=== PATIENT | male | born 1940 | race Caucasian/White ===

== ENCOUNTER 2017-02-27 22:46 | Inpatient (IN) | payer MEDICARE, OTHER ==
[2017-02-28] MEDS ORDERED: Ondansetron ODT 4 MG TAB SL PRN (01:42)
[2017-02-28] MEDS ORDERED: Acetaminophen 325 MG TAB PO PRN (01:42)
[2017-02-28] MEDS ORDERED: Ondansetron HCl/PF 4 MG/2 ML Vial IVP PRN (01:42)
[2017-02-28 01:52] VITALS: BMI 32.5
[2017-02-28] MEDS ORDERED: Gabapentin 300 MG CAP PO SCH ×2 (04:15→15:00)
[2017-02-28] MEDS: traMADol HCl 50 MG TAB PO PRN ×3 (04:15→20:57)
[2017-02-28] MEDS ORDERED: traMADol HCl 50 MG TAB PO SCH (08:45)
[2017-02-28 08:55] LABS: #Eosinphils 0.1 thou/uL (0.0-0.7); #Lymphocytes 0.7 thou/uL (1.20-3.40); #Monocytes 0.8 thou/uL (0.11-0.59); #Neutrophils 6.6 thou/uL (1.40-6.50); %Basophils 0.5 % (0.0-1.0); %Eosinophils 1.1 % (0.0-10.0); %Lymphocytes 8.1 % (21.0-51.0); Hematocrit 37.1 % (42.0-52.0); Mean Platelet Volume 8.1 fL (7.4-10.4); Red Blood Cell (RBC) Count 3.85 mill/uL (4.70-6.10); White Blood Cell (WBC) Count 8.3 thou/uL (4.8-10.8)
[2017-02-28] MEDS ORDERED: FLU VACC TS2017-18 (>65YR) 0.5 ML SYRINGE IM ONE (09:00)
[2017-02-28 09:19] LABS: Anion Gap 11 mmol/L (10-20); BUN (Urea Nitrogen) 12 mg/dL (8.4-25.7); Calc. Creatinine Clearance 110 mL/min (70-130); Calcium 8.7 mg/dL (7.8-10.44); Carbon Dioxide 25 mmol/L (23-31); Chloride 107 mmol/L (98-107); Estimated GFR-MDRD Greater than 90
[2017-02-28] MEDS: Aspirin 81 mg Enteric Coated Tablet PO SCH (09:26)
[2017-02-28] MEDS: Potassium Chloride 10 MEQ TAB PO SCH (09:26)
[2017-02-28] MEDS: Furosemide 20 MG TAB PO SCH (09:27)
[2017-02-28] MEDS: Gabapentin 300 MG CAP PO SCH ×3 (09:28→20:57)
[2017-02-28] MEDS ORDERED: Clindamycin 150 MG CAP PO SCH ×2 (12:15→18:00)
--- NOTE | 2017-02-28 12:36 | HP ---
PRIMARY CARE PHYSICIAN: Dr. Joel Haskins CHIEF COMPLAINT: Bleeding. HISTORY OF PRESENT ILLNESS: Mr. Dash is a pleasant 76-year-old gentleman who was seen at [facility] on 02/28/2017 following transfer from [place]. He reports that he started using some material from his 's wheelchair on his own wheelchair. He reports that he developed swelling over the back of the left thigh. He reports that it has been go ing on for 3 days. He went to the emergency room yesterday. He had incision and drainage there. F ollowing the incision and drainage, he continued to bleed from the wound. He was therefore sent to this facility for observation. He reports that the bleeding is controlled. He denies any chest pain, shortness of breath, fevers o r chills. He denies any nausea or vomiting. He denies any abdominal pain. He denies any pain at the site of incision and drainage. REVIEW OF SYSTEMS: The following complete review of systems was negative, unless otherwise mentioned in the HPI or below: Constitutional: Weight loss or gain, ability to conduct usual activities. Skin: Rash, itching. Eyes: Double vision, pain. ENT/Mouth: Nose bleeding, neck stiffness, pain, tenderness. Cardiovascular: Palpitations, dyspnea on exertion, orthopnea. Respiratory: Shortness of breath, wheezing, cough, hemoptysis, fever or night sweats. Gastrointestinal: Poor appetite, abdominal pain, heartburn, nausea, vomiting, constipation, or diarrhea. Genitourinary: Urgency, frequency, dysuria, nocturia. Musculoskeletal: Pain, swelling. Neurologic/Psychiatric: Anxiety, depression. Allergy/Immunologic: Skin rash, bleeding tendency. PAST MEDICAL HISTORY: Coronary artery disease, dyslipidemia, hypertension, neuropathy and ischemic cerebrovascular accident, gastroesophageal reflux disease. PAST SURGICAL HISTORY: Significant for 3-vessel coronary artery bypass graft in 01/2003, pacemaker placement in 2012, knee surgery, prostatectomy, transurethral resection of prostate, lumbar spine steven rgery, hernia repair and left total knee revision. SOCIAL HISTORY: The patient denies any tobacco use, alcohol use or recreational drug use. FAMILY HISTORY: His father had heart disease. CODE STATUS: I discussed Mr. Dash code status. He is full code. ALLERGIES: No known drug allergies. CURRENT MEDICATIONS: Metoprolol succinate 25 mg daily, Plavix 75 mg daily, gabapentin 300 mg 2 time s a day, tramadol 50 mg every 6 hours as needed, and aspirin 81 mg daily. PHYSICAL EXAMINATION: GENERAL: Mr. Dash is awake and alert, not in acute distress. VITAL SIGNS: Blood pressure is 119/49, pulse is 73. He is breathing at rate of 20 and saturating 9 7% on room air. EYES: No scleral icterus. No conjunctival pallor. ENT: Moist mucosal membranes, no oropharyngeal erythema or exudates. NECK: Supple, nontender. Normal range of movement. Trachea is midline. RESPIRATORY: Accessory muscles of breathing are not active. Chest wall movements are symmetric fabiana aterally. LUNGS: Clear to auscultation without wheeze, rhonchi or crepitations. CARDIOVASCULAR: S1 and S2 are heard, regular. Peripheral pulses are palpable. No carotid bruit, n o pericardial rub. ABDOMEN: Soft, nontender, bowel sounds heard, no hepatomegaly, no splenomegaly. NEUROLOGIC: Cranial nerves II-XII are intact. Deep tendon reflexes are 2+. PSYCHIATRIC: Normal mood, normal affect, The patient is oriented to person, place, and time. MUSCULOSKELETAL: Power is 5/5 in all 4 extremities. Normal range of movement at all major extremi ty joints. SKIN: I examined his incision and drainage site, which is currently packed with gauze. There is no ooze or bleeding at this time. DATABASE: Mr. Dash labs and investigations were reviewed. He has a normal white count, hemoglobi n 12.1 at 0844 hours today, decreased from 14.3 at 1844 hours yesterday, normal platelet count, INR 1.1 and unremarkable comprehensive metabolic profile ASSESSMENT AND PLAN: Mr. Dash is a pleasant 76-year-old gentleman who was seen at [facility] on 02/28/2017 following transfer from [place]. His problem list includes: 1. Bleeding from the incision and drainage site. This appears to have resolved. He will be observ ed in the hospital with monitoring of his hemoglobin level. Plavix will be on hold for now. He michelle l be advised to follow up with his primary care provider for reassessment in terms of resumption of Plavix. 2. Skin abscess: Status post incision and drainage. He received a dose of Bactrim. He is on pota ssium supplements as well at home. In light of this, we will start him on clindamycin. I discussed with him the risk of Clostridium difficile infection. He has been advised to notify his primary ca re physician if he develops any diarrhea. 3. Coronary artery disease. This appears to be stable. 4. Hypertension: Monitor vital signs, titrate antihypertensives as needed. 5. Neuropathy. Continue gabapentin. The patient reports that he has not walked in 2 years and has been mostly bound to bed or wheelchair . Many thanks for allowing me to participate in your patient's care. Please feel free to contact me w ith any questions or concerns. LEVEL OF RISK: Moderate. LEVEL OF COMPLEXITY: Moderate.
[2017-02-28 13:09] LABS: Hematocrit 35.3 % (42.0-52.0)
--- NOTE | 2017-02-28 16:50 | PDOC.EVN ---
Event Note - Event Note Event Note: Blood cultures +ve for MRSA, 05/20. Hold discharge, start vancomycin, discontinue clindamycin.
[2017-02-28] MEDS: Vancomycin HCl 1.5 GM in Sodium Chloride 0.9% 250 ML 300 ML IVPB SCH (18:28)
[2017-02-28] MEDS: HYDROcodone/Acetaminophen 5/325 mg Tablet PO PRN (18:33)
[2017-02-28] MEDS ORDERED: Vancomycin HCl 1 GM in Premix Bag 1 BAG IVPB SCH (21:00)
[2017-03-01 05:33] LABS: #Eosinphils 0.1 thou/uL (0.0-0.7); #Monocytes 0.9 thou/uL (0.11-0.59); #Neutrophils 4.1 thou/uL (1.40-6.50); %Basophils 0.4 % (0.0-1.0); %Eosinophils 2.1 % (0.0-10.0); %Lymphocytes 16.5 % (21.0-51.0); %Monocytes 14.7 % (0.0-10.0); Hematocrit 35.8 % (42.0-52.0); Mean Platelet Volume 7.7 fL (7.4-10.4); Red Blood Cell (RBC) Count 3.72 mill/uL (4.70-6.10); White Blood Cell (WBC) Count 6.2 thou/uL (4.8-10.8)
[2017-03-01] MEDS: Vancomycin HCl 1.5 GM in Sodium Chloride 0.9% 250 ML 300 ML IVPB SCH ×2 (05:33→17:56)
[2017-03-01 05:56] LABS: Anion Gap 8 mmol/L (10-20); BUN (Urea Nitrogen) 11 mg/dL (8.4-25.7); Calc. Creatinine Clearance 102 mL/min (70-130); Calcium 8.9 mg/dL (7.8-10.44); Carbon Dioxide 29 mmol/L (23-31); Chloride 105 mmol/L (98-107); Estimated GFR-MDRD 85
[2017-03-01] MEDS: Aspirin 81 mg Enteric Coated Tablet PO SCH (09:12)
[2017-03-01] MEDS: Furosemide 20 MG TAB PO SCH (09:12)
[2017-03-01] MEDS: Potassium Chloride 10 MEQ TAB PO SCH (09:12)
[2017-03-01] MEDS: Gabapentin 300 MG CAP PO SCH ×3 (09:12→21:43)
[2017-03-01] MEDS: HYDROcodone/Acetaminophen 5/325 mg Tablet PO PRN ×2 (09:12→17:53)
[2017-03-01] MEDS: traMADol HCl 50 MG TAB PO PRN ×2 (11:15→21:45)
--- NOTE | 2017-03-01 12:11 | PDOC.PN ---
- Subjective Encounter Start Date: 03/01/17 Encounter Start Time: 12:07 doing better c/o shoulder pain no n/v no f/c - Objective MAR Reviewed: Yes Vital Signs & Weight: Vital Signs (12 hours) Temp Pulse Resp BP BP Pulse Ox 03/01/17 11:21 98 F 67 18 120/67 95 03/01/17 07:52 98.7 F 70 16 152/81 H 95 03/01/17 07:37 98.7 F 67 20 03/01/17 07:19 93 L 03/01/17 04:34 98.7 F 67 20 117/67 93 L I&O: 02/28/17 03/01/17 03/02/17 06:59 06:59 06:59 Intake Total 620 Balance 620 Result Diagrams: 03/01/17 04:43 03/01/17 04:43 Phys Exam - Physical Examination Constitutional: NAD HEENT: PERRLA, 2+ tonsils Neck: no nodes Respiratory: no rales Cardiovascular: no significant murmur Gastrointestinal: soft, non-tender Musculoskeletal: pulses present Neurological: moves all 4 limbs Psychiatric: A&O x 3 Deviation from normal: lt gluteus wound with dressing Dx/Plan (1) MRSA bacteremia Code(s): R78.81 - BACTEREMIA Status: Acute Comment: on vanc (2) Skin abscess Code(s): L02.91 - CUTANEOUS ABSCESS, UNSPECIFIED Status: Acute Comment: s/p i/d (3) CAD (coronary artery disease) Code(s): I25.10 - ATHSCL HEART DISEASE OF [place] CORONARY ARTERY W/O ANG PCTRS Status: Acute (4) HTN (hypertension) Code(s): I10 - ESSENTIAL (PRIMARY) HYPERTENSION Status: Acute - Plan * consult dr burt for abx recommendation and duration * cont current rx
--- NOTE | 2017-03-01 19:48 | CON ---
DATE OF CONSULTATION: 03/01/2017 REASON FOR CONSULTATION: Left thigh abscess with bacteremia. HISTORY OF PRESENT ILLNESS: A 76-year-old gentleman who has had a history of coronary artery disease with bypass graft surgery and osteoarthrosis with prior bilateral knee replacements and some form of neuropathy in bilateral lower extremities with severe mobility impairment, wheelchair bound state for the past few years, who sustained injury to the left posterior thigh due to abrasion secondary to a padding that he uses or used for his wheelchair in the recent past. Patient, because of this inflammatory process was seen at the emergency room and had I\T\D and I believe in [place] and then he was referred to this hospital for admission. The initial findings here included a blood pressure 119/49, pulse 73, respirations 20, O2 saturation 97%. The patient had reported no headaches, no change in visual symptoms, sore throat, odynophagia, dysphagia, no vomiting, hematemesis, melena, hematochezia. No respiratory symptoms. No chest pain or abdominal pain. He voids without the assistance of any device, but he does have incontinence following numerous prior urological interventions. The patient has quite pronounced numbness in the lower extremities with weakness in the right lower extremity secondary to neuropathy. PAST MEDICAL HISTORY AND PAST SURGICAL HISTORY: Includes coronary artery disease, bypass graft surgery, dyslipidemia, hypertension, neuropathy involving mostly in lower extremities with both sensory and motor deficit which has resulted in wheelchair bound state. Patient's neuropathy has been evaluated by Dr. Alexander in [facility] and he also has been referred to doctor in [place], but according to his own recollection, no specific diagnosis was established for the neuropathy. History of gastroesophageal reflux disease, history of BPH and urethral calcification requiring TURP, hernia repair, bilateral TKRs, lumbar spine surgery, pacemaker insertion. SOCIAL HISTORY: He lives in a [place] in [place]. Never a smoker. He is . ALLERGIES: NONE. CURRENT MEDICATIONS: Metoprolol, Plavix, gabapentin, tramadol, and currently receiving vancomycin. PHYSICAL EXAMINATION: VITAL SIGNS: T-max 99.7, blood pressure 150/80, now 120/67, pulse 67, respirations 18, O2 sat 95%. GENERAL: Appears in no distress, pleasant. SKIN: Skin findings included an area of erythema in the left posterior thigh measuring about 10 cm with central area of induration and also open wound, which has been packed and this is the site of the I\T\D done at the emergency room. Patient has a peripheral IV access. No Mann catheter. No other areas of breakdown on the skin. No lymphadenopathy. HEENT: Ocular movements are conjugate. Sclerae white. Pupils are equal. Oral cavity with numerous teeth, in fairly decent shape. NECK: Supple, no jugular venous distention. LUNGS: With symmetric clear breath sounds. HEART: S1, S2, regular rate. No S3 or S4. The patient has a pacemaker in the left subclavian location. ABDOMEN: Soft, not distended or tender. No ascites. No bladder distention. No organomegaly. GENITAL: Normal, patient has bilateral TKRs with no inflammatory changes. EXTREMITIES: Pulses are 1+ in popliteals and faintly palpable in dorsalis pedis. Patient is unable to move the right foot. He moves the left foot without any impediment. NEUROLOGIC: Plantar responses are flexor on the left side and indifferent on the right. Hyporeflexia noted. He has marked decrease in pin-prick sensation in the lower extremities. The cognitive function appears to be intact. The upper extremity strength is preserved and no sensory deficit noted there. LABORATORY DATA: White cell count 8.3 and 6.2, hemoglobin 12, platelets 158 with 66% neutrophils. Chemistry is within normal limits. Radiology studies have not been performed at this time. ASSESSMENT: 1. Coronary artery disease with prior bypass graft surgery. 2. Neuropathy with wheelchair bound state and neuropathy of uncertain etiology. 3. Abscess, left posterior thigh secondary to methicillin-resistant Staphylococcus aureus. 4. Pacemaker in situ. 5. Bacteremia secondary to methicillin-resistant Staphylococcus aureus. DISCUSSION: Patient has developed this abscess with bacteremia and he is at ris of distant seeding of both TKRs as well as the pacemaker lead. Recommend PICC line placement and continuation of vancomycin in the outpatient setting for a total of 4 weeks. End date of therapy will be 04/02 with weekly vancomycin trough, CBC, CRP, and comprehensive metabolic panel. Repeat blood cultures prior to discharge to verify the resolution of bacteremia. In the future, we will need to monitor for potential dissemination to other sites including the pacemaker, knee replacement sites and lower back area. MTDD
[2017-03-02 05:33] LABS: #Eosinphils 0.2 thou/uL (0.0-0.7); #Lymphocytes 0.8 thou/uL (1.20-3.40); #Neutrophils 5.7 thou/uL (1.40-6.50); %Basophils 0.2 % (0.0-1.0); %Eosinophils 2.3 % (0.0-10.0); %Lymphocytes 10.1 % (21.0-51.0); %Monocytes 13.4 % (0.0-10.0); Hematocrit 38.6 % (42.0-52.0); Mean Platelet Volume 7.5 fL (7.4-10.4); Red Blood Cell (RBC) Count 3.98 mill/uL (4.70-6.10); White Blood Cell (WBC) Count 7.7 thou/uL (4.8-10.8)
[2017-03-02 05:37] LABS: Vancomycin, Trough 20.9 ug/mL
[2017-03-02 05:54] LABS: Anion Gap 12 mmol/L (10-20); BUN (Urea Nitrogen) 14 mg/dL (8.4-25.7); BUN/Creatinine Ratio 15.38; Calc. Creatinine Clearance 98 mL/min (70-130); Carbon Dioxide 22 mmol/L (23-31); Chloride 107 mmol/L (98-107); Estimated GFR-MDRD 81; Phosphorus 4.1 mg/dL (2.3-4.7)
[2017-03-02] MEDS: Vancomycin HCl 1.5 GM in Sodium Chloride 0.9% 250 ML 300 ML IVPB SCH ×2 (06:56→18:48)
[2017-03-02] MEDS: HYDROcodone/Acetaminophen 5/325 mg Tablet PO PRN (08:42)
[2017-03-02] MEDS: Gabapentin 300 MG CAP PO SCH ×3 (08:55→21:11)
[2017-03-02] MEDS: Furosemide 20 MG TAB PO SCH (08:55)
[2017-03-02] MEDS: Aspirin 81 mg Enteric Coated Tablet PO SCH (08:56)
[2017-03-02] MEDS: Potassium Chloride 10 MEQ TAB PO SCH (08:56)
--- NOTE | 2017-03-02 10:42 | PDOC.PN ---
- Subjective Encounter Start Date: 03/02/17 Encounter Start Time: 10:40 Patient seen and examined. No new complaints. No overnight events - Objective MAR Reviewed: Yes Vital Signs & Weight: Vital Signs (12 hours) Temp Pulse Resp BP BP Pulse Ox 03/02/17 08:10 98.2 F 70 18 158/84 H 93 L 03/02/17 07:29 93 L 03/02/17 03:49 98.5 F 73 12 167/79 H 91 L 03/01/17 23:37 99.4 F 72 16 163/74 H 94 L I&O: 03/01/17 03/02/17 03/03/17 06:59 06:59 06:59 Intake Total 620 800 Balance 620 800 Result Diagrams: 03/02/17 05:04 03/02/17 05:04 Phys Exam - Physical Examination Constitutional: NAD HEENT: PERRLA Neck: no nodes Respiratory: no rales Cardiovascular: no significant murmur Gastrointestinal: non-tender Musculoskeletal: pulses present Neurological: moves all 4 limbs Psychiatric: A&O x 3 Deviation from normal: dressing on back of leg noted Dx/Plan (1) MRSA bacteremia Code(s): R78.81 - BACTEREMIA Status: Acute Comment: on vanc (2) Skin abscess Code(s): L02.91 - CUTANEOUS ABSCESS, UNSPECIFIED Status: Acute Comment: s/p i/d (3) CAD (coronary artery disease) Code(s): I25.10 - ATHSCL HEART DISEASE OF [place] CORONARY ARTERY W/O ANG PCTRS Status: Acute (4) HTN (hypertension) Code(s): I10 - ESSENTIAL (PRIMARY) HYPERTENSION Status: Acute (5) Neuropathy Code(s): G62.9 - POLYNEUROPATHY, UNSPECIFIED Status: Acute (6) S/P placement of cardiac pacemaker Code(s): Z95.0 - PRESENCE OF CARDIAC PACEMAKER Status: Acute - Plan * picc line * iv vanc till 04/02 * f/u repeat blood cul * case mx for help with setting out pt iv abx
[2017-03-02] MEDS: traMADol HCl 50 MG TAB PO PRN ×2 (15:24→21:11)
[2017-03-02] MEDS ORDERED: Bisacodyl 10 MG SUPP PR PRN (15:41)
[2017-03-02] MEDS ORDERED: Heparin 1,000 UNITS/ML VIAL ONE (15:52)
[2017-03-03] MEDS: Vancomycin HCl 1.5 GM in Sodium Chloride 0.9% 250 ML 300 ML IVPB SCH ×2 (06:39→18:22)
[2017-03-03] MEDS: Gabapentin 300 MG CAP PO SCH ×3 (09:20→21:08)
[2017-03-03] MEDS: Aspirin 81 mg Enteric Coated Tablet PO SCH (09:20)
[2017-03-03] MEDS: Potassium Chloride 10 MEQ TAB PO SCH (09:21)
[2017-03-03] MEDS: Furosemide 20 MG TAB PO SCH (09:21)
[2017-03-03] MEDS: traMADol HCl 50 MG TAB PO PRN ×2 (09:32→21:05)
--- NOTE | 2017-03-03 10:27 | PDOC.PN ---
- Subjective Encounter Start Date: 03/03/17 Encounter Start Time: 10:25 Mr. Dash is feeling nauseated today, and had some vomiting this morning, otherwise ok. He is anxious to go home. - Objective MAR Reviewed: Yes Vital Signs & Weight: Vital Signs (12 hours) Temp Pulse Resp BP Pulse Ox 03/03/17 07:42 98 F 72 16 168/79 H 93 L 03/03/17 04:00 98.5 F 72 16 148/74 H 95 03/03/17 00:00 98.8 F 70 14 136/74 91 L I&O: 03/02/17 03/03/17 03/04/17 06:59 06:59 06:59 Intake Total 800 Balance 800 Result Diagrams: 03/02/17 05:04 03/02/17 05:04 Phys Exam - Physical Examination HEENT: PERRLA Respiratory: no wheezing, no rales, no rhonchi, clear to auscultation bilateral Cardiovascular: RRR, no significant murmur Gastrointestinal: soft, non-tender, positive bowel sounds Musculoskeletal: no edema Dx/Plan (1) CAD (coronary artery disease) Code(s): I25.10 - ATHSCL HEART DISEASE OF [place] CORONARY ARTERY W/O ANG PCTRS Status: Acute (2) HTN (hypertension) Code(s): I10 - ESSENTIAL (PRIMARY) HYPERTENSION Status: Acute (3) MRSA bacteremia Code(s): R78.81 - BACTEREMIA Status: Acute Comment: on vanc (4) Skin abscess Code(s): L02.91 - CUTANEOUS ABSCESS, UNSPECIFIED Status: Acute Comment: s/p i/d (5) Status post total left knee replacement Code(s): Z96.652 - PRESENCE OF LEFT ARTIFICIAL KNEE JOINT Status: Acute - Plan * Thigh Abscess with MRSA bacteremia- patient is currently on Vancomycin IV. He has had PICC line placed * CAD- stable * HTN- blood pressure is slightly labile- continue current treatment * Awaiting arrangements for Outpatient IV Vancomycin prior to discharge.
--- NOTE | 2017-03-03 11:30 | SPC ---
ULTRASOUND GUIDED RIGHT UPPER EXTREMITY PICC LINE PLACEMENT: 03/03/2017 HISTORY: Thigh abscess. Needs long-term IV antibiotics. FLUOROSCOPY: Total time 0.4 minutes with a total dose of 2115 mGy per cm2. TECHNIQUE: After informed consent was obtained, the patient was placed on the angiography table in the supine p osition. The right upper extremity was meticulously prepped and draped in the usual sterile fashion . An appropriate access site was determined with ultrasound guidance. The skin and subcutaneous tissues were infiltrated with buffered 1% Lidocaine for local anesthesia. Utilizing concurrent real-time ultrasound guidance, the right brachial vein was accessed utilizing a micropuncture technique and concurrent real-time ultrasound guidance. A 5 [place] peel-away sheath was placed. The catheter was measured and cut to the appropriate length. The catheter was placed over the guide wire, with the tip position overlying the cavoatrial junction. The guide wire and pe el-away sheath were removed. The catheter was accessed and aspirated/flushed easily. A dry, sterile dressing was placed. The pa tient tolerated the procedure well and without immediate complications. FINDINGS: Technically successful placement of a single lumen, 5 [place], 35 cm PICC line via the right brachial vein. The tip of the catheter overlies the cavoatrial junction. Final spot fluoroscopic image of catheter placement obtained. IMPRESSION: Technically successful right upper extremity peripherally inserted central catheter line placement. POS: ANGIE
[2017-03-03 17:28] LABS: Vancomycin, Trough 32.9 ug/mL
[2017-03-04 06:43] LABS: Vancomycin, Random 23.3 ug/mL (See Comment)
[2017-03-04] MEDS ORDERED: Acetaminophen 325 MG TAB PO PRN (10:57)
[2017-03-04] MEDS ORDERED: Sodium Chloride 0.65% Nasal 44 ML BOT EA NARE PRN (10:57)
[2017-03-04] MEDS ORDERED: Loratadine 10 MG TAB PO PRN (10:57)
[2017-03-04] MEDS ORDERED: Ondansetron HCl/PF 4 MG/2 ML Vial IVP PRN (10:57)
[2017-03-04] MEDS ORDERED: Milk Of Magnesia 30 ML UDCUP PO PRN (10:57)
[2017-03-04] MEDS ORDERED: Ondansetron ODT 4 MG TAB PO PRN (10:57)
[2017-03-04] MEDS ORDERED: Temazepam 15 MG CAP PO PRN (10:57)
[2017-03-04] MEDS ORDERED: Diabetic Tussin 200 MG/10 ML UDCUP PO PRN (10:57)
[2017-03-04] MEDS ORDERED: Mag-Al 1200 mg/1200 mg/30 ML UDCUP PO PRN (10:57)
[2017-03-04] MEDS ORDERED: Loperamide HCl 2 MG CAP PO PRN (10:57)
[2017-03-04] MEDS: Gabapentin 300 MG CAP PO SCH ×2 (11:15→16:01)
[2017-03-04] MEDS: Furosemide 20 MG TAB PO SCH (11:15)
[2017-03-04] MEDS: Potassium Chloride 10 MEQ TAB PO SCH (11:15)
[2017-03-04] MEDS: Aspirin 81 mg Enteric Coated Tablet PO SCH (11:15)
--- NOTE | 2017-03-04 11:49 | PDOC.PN ---
- Subjective Encounter Start Date: 03/04/17 Encounter Start Time: 07:00 -: old records requested/rev c/o nausea, no fever, pain is controlled - Objective MAR Reviewed: Yes Vital Signs & Weight: Vital Signs (12 hours) Temp Pulse Resp BP Pulse Ox 03/04/17 08:00 98.4 F 56 L 20 159/75 H 94 L 03/04/17 04:19 98.5 F 74 20 94/54 L 90 L 03/04/17 00:53 98.1 F 67 20 152/74 H 92 L I&O: 03/03/17 03/04/17 03/05/17 06:59 06:59 06:59 Intake Total 2064 Balance 2064 Result Diagrams: 03/02/17 05:04 03/02/17 05:04 Phys Exam - Physical Examination Constitutional: NAD HEENT: PERRLA, moist MMs, sclera anicteric Neck: no JVD, supple Respiratory: no wheezing, no rales, no rhonchi Cardiovascular: RRR, no significant murmur, no rub Gastrointestinal: soft, non-tender, no distention, positive bowel sounds Musculoskeletal: no edema, pulses present Neurological: non-focal, normal sensation, moves all 4 limbs Psychiatric: normal affect, A&O x 3 Skin: no rash, normal turgor Dx/Plan (1) MRSA bacteremia Code(s): R78.81 - BACTEREMIA Status: Acute Comment: on vanc (2) Thigh abscess Code(s): L02.419 - CUTANEOUS ABSCESS OF LIMB, UNSPECIFIED Status: Acute (3) CAD (coronary artery disease) Code(s): I25.10 - ATHSCL HEART DISEASE OF [place] CORONARY ARTERY W/O ANG PCTRS Status: Chronic (4) H/O cardiac pacemaker Code(s): Z95.0 - PRESENCE OF CARDIAC PACEMAKER Status: Chronic (5) HTN (hypertension) Code(s): I10 - ESSENTIAL (PRIMARY) HYPERTENSION Status: Chronic (6) Neuropathy Code(s): G62.9 - POLYNEUROPATHY, UNSPECIFIED Status: Chronic (7) Obesity (BMI 30.0-34.9) Code(s): E66.9 - OBESITY, UNSPECIFIED Status: Chronic - Plan cont current plan of care, 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 Review of Systems - Review of Systems ENT: negative: Ear Pain, Ear Discharge, Nose Pain, Nose Discharge, Nose Congestion, Mouth Pain, Mouth Swelling, Throat Pain, Throat Swelling, Other Respiratory: negative: Cough, Dry, Shortness of Breath, Hemoptysis, SOB with Excertion, Pleuritic Pain, Sputum, Wheezing Cardiovascular: negative: Chest Pain, Palpitations, Orthopnea, Paroxysmal Noc. Dyspnea, Edema, Light Headedness, Other Gastrointestinal: negative: Nausea, Vomiting, Abdominal Pain, Diarrhea, Constipation, Melena, Hematochezia, Other Genitourinary: negative: Dysuria, Frequency, Incontinence, Hematuria, Retention , Other Musculoskeletal: negative: Neck Pain, Shoulder Pain, Arm Pain, Back Pain, Hand Pain, Leg Pain, Foot Pain, Other - Medications/Allergies Allergies/Adverse Reactions: Allergies Allergy/AdvReac Type Severity Reaction Status Date / Time No Known Drug Allergies Allergy Verified 02/28/17 02:03 Medications: Current Medications Acetaminophen (Tylenol) 650 mg PO Q4H PRN PRN Reason: Headache/Fever or Mild Pain Hydrocodone Bitart/Acetaminophen ([place] 5/325) 1 tab PO Q6H PRN PRN Reason: Pain Last Admin: 03/02/17 08:42 Dose: 1 tab Al Hydroxide/Mg Hydroxide (Maalox) 15 ml PO Q4H PRN PRN Reason: Heartburn or Indigestion Aspirin (Ecotrin) 81 mg PO DAILY FOR[facility]LY [facility], [facility] Last Admin: 03/04/17 11:15 Dose: 81 mg Bisacodyl (Dulcolax) 10 mg NH HS PRN PRN Reason: Constipation Last Admin: 03/02/17 16:44 Dose: 10 mg Famotidine (Pepcid) 20 mg PO BID [facility], [facility]1983 Furosemide (Lasix) 20 mg PO DAILY [facility]1983 Last Admin: 03/04/17 11:15 Dose: 20 mg Gabapentin (Neurontin) 300 mg PO TID [facility]1983 Last Admin: 03/04/17 11:15 Dose: Not Given Guaifenesin (Robitussin Sf) 200 mg PO Q4H PRN PRN Reason: Cough Hydralazine HCl (Apresoline) 10 mg SLOW IVP Q4H PRN PRN Reason: Systolic BP > 180 Vancomycin HCl 1 gm/ Device 200 mls @ 200 mls/hr IVPB Q12HR [facility] 1928[facility]1983 Loperamide HCl (Imodium) 2 mg PO PRN PRN PRN Reason: Diarrhea/Loose Stools Loratadine (Claritin) 10 mg PO DAILYPRN PRN PRN Reason: Sinus Symptoms Magnesium Hydroxide (Milk Of Magnesium) 30 ml PO DAILYPRN PRN PRN Reason: Constipation Metoprolol Succinate (Toprol Xl) 12.5 mg PO DAILY [facility] Last Admin: 03/04/17 11:15 Dose: 12.5 mg Miscellaneous Medication (Pharmacy To Dose) 1 each IVPB PRN PRN PRN Reason: Pharmacy to dose Ondansetron HCl (Zofran Odt) 4 mg PO Q6H PRN PRN Reason: Nausea/Vomiting Ondansetron HCl (Zofran) 4 mg IVP Q6H PRN PRN Reason: Nausea/Vomiting Potassium Chloride (Klor-Con 10) 10 meq PO DAILY [facility] Last Admin: 03/04/17 11:15 Dose: 10 meq Sodium Chloride ([place] Nasal [place] 0.65%) 0 ml EA NARE QIDPRN PRN PRN Reason: Nasal Congestion Temazepam (Restoril) 15 mg PO HSPRN PRN PRN Reason: Insomnia Tramadol HCl (Ultram) 100 mg PO Q6H PRN PRN Reason: Pain Last Admin: 03/03/17 21:05 Dose: 100 mg
--- NOTE | 2017-03-04 13:22 | DIS ---
DATE OF ADMISSION: 02/28/2017 DATE OF DISCHARGE: 03/04/2017 PRIMARY CARE PHYSICIAN: Dr. Jennifer Haskins. DISCHARGE DISPOSITION: Rehabilitation. PRIMARY DISCHARGE DIAGNOSES: Methicillin-resistant Staphylococcus aureus bacteremia, thigh abscess status post incision and drainage, bleeding after incision and drainage at surgical site. SECONDARY DISCHARGE DIAGNOSES: Coronary artery disease, cardiac pacemaker, peripheral neuropathy, h ypertension, obesity with BMI 32. PRIMARY PROCEDURE/OPERATION: PICC line placement. RADIOLOGICAL INVESTIGATION: None. SIGNIFICANT LABS: WBC 7.7, hemoglobin 12.5, platelets 183. Sodium 137, potassium 4.2, BUN 14, crea tinine 0.91, calcium 9.0, albumin 3.1. Blood culture repeat one negative. Previous blood culture i s positive for MRSA. DISCHARGE MEDICATIONS: Vancomycin 1 gram q.12 hourly until 04/02/2017. Continue following medicati ons: Lasix 20 mg p.o. daily, gabapentin 300 mg p.o. t.i.d., [place] 5 one or two tablets q.6 hourly p .r.n., Toprol-XL 1/2 tablet p.o. at bedtime, potassium chloride 10 mEq p.o. daily and tramadol 50 mg p.o. as directed. CONTRAINDICATIONS: None. CODE STATUS: FULL CODE. INPATIENT CONSULTANTS: Dr. Mondragon was consulted while in hospital. TEST RESULTS PENDING ON DISCHARGE: None. ALLERGIES: No known drug allergies. DISCHARGE PLAN: Post hospital, the patient is discharged to Rehab. Subsequently, the patient will follow up with primary care physician. HOSPITAL COURSE: A 76-year-old male who was admitted by Dr. Lei on 02/28/2017. Please see his H\ T\P for further details. This patient was recently diagnosed with thigh abscess and he required I\T \D at the [facility]. Subsequently, patient was in a wheelchair and as he has neuropat hy, he was not able to know about bleeding and he was having bleeding from the incision and drainage site. Patient was admitted to our hospital. His blood culture was positive for MRSA. We consulte d Dr. Mondragon and Dr. Mondragon recommended to continue IV antibiotic therapy until 04/02/2017. Today, I saw this patient at bedside, I reviewed entire chart. Review of systems reviewed with him and negative. This patient was interested in going to a rehab facility for antibiotic therapy. Wit h help of case consultant, we arranged to rehabilitation. The patient had a PICC line placed. He is currently and hemodynamically stable. The patient is seen and examined at bedside today. Please see my progress note from today for furth er details. Total time spent on discharge day more than 30 midnights.
[2017-03-04] MEDS: traMADol HCl 50 MG TAB PO PRN (17:38)
[2017-03-04] MEDS: HYDROcodone/Acetaminophen 5/325 mg Tablet PO PRN (18:10)
[2017-03-04 18:34] LABS: Vancomycin, Random 16.6 ug/mL (See Comment)
[2017-03-04] MEDS ORDERED: Vancomycin HCl 1 GM in Premix Bag 1 BAG IVPB SCH ×2 (20:00→23:00)
[2017-03-04 20:17] VITALS: BP 143/70; TEMP 98
[2017-03-04] MEDS ORDERED: Famotidine 20 MG TAB PO SCH (21:00)
== END 2017-03-04 20:05 | DRG 603 ==
LOC: ERS 22:46 → SJJU 23:30 → OBSVTOIN 02-28 18:45
PROVIDERS: ADMIT Family Medicine; ATTEND Family Medicine
PROC: 02HV33Z Insertion of Infusion Device into Superior Vena Cava, Percutaneous Approach (ICD-10-PCS; principal; 2017-03-03)
DX: L02.416 Cutaneous abscess of left lower limb (principal); R78.81 Bacteremia; G62.9 Polyneuropathy, unspecified; B95.62 Methicillin resistant Staphylococcus aureus infection as the cause of diseases classified elsewhere; L76.22 Postprocedural hemorrhage of skin and subcutaneous tissue following other procedure; I10 Essential (primary) hypertension; I25.10 Atherosclerotic heart disease of native coronary artery without angina pectoris; Z95.1 Presence of aortocoronary bypass graft; Z95.0 Presence of cardiac pacemaker; K21.9 Gastro-esophageal reflux disease without esophagitis; E78.5 Hyperlipidemia, unspecified; E66.9 Obesity, unspecified; Z68.32 Body mass index [BMI] 32.0-32.9, adult; Z96.653 Presence of artificial knee joint, bilateral; Z99.3 Dependence on wheelchair; Z86.73 Personal history of transient ischemic attack (TIA), and cerebral infarction without residual deficits; Y83.8 Other surgical procedures as the cause of abnormal reaction of the patient, or of later complication, without mention of misadventure at the time of the procedure
CPT/HCPCS: 36415; 36416; 36569; 80048; 80069; 80202; 85025; 87040; 99285; C1751; J1644; J3370; J7050

== ENCOUNTER 2017-03-24 18:29 | Inpatient (IN) | payer MEDICARE, OTHER ==
[2017-03-24] MEDS ORDERED: Acetaminophen 325 MG TAB PO PRN (22:36)
[2017-03-24] MEDS ORDERED: Ondansetron ODT 4 MG TAB SL PRN (22:36)
[2017-03-24] MEDS ORDERED: Ondansetron HCl/PF 4 MG/2 ML Vial IVP PRN (22:36)
[2017-03-24 22:46] LABS: Troponin I 0.043 ng/mL (< 0.028)
[2017-03-25 01:25] LABS: Troponin I 0.056 ng/mL (< 0.028)
[2017-03-25] MEDS ORDERED: Ondansetron HCl/PF 4 MG/2 ML Vial IVP PRN (03:23)
[2017-03-25] MEDS ORDERED: Ondansetron ODT 4 MG TAB PO PRN (03:23)
[2017-03-25] MEDS ORDERED: Acetaminophen 325 MG TAB PO PRN (03:23)
[2017-03-25] MEDS ORDERED: Milk Of Magnesia 30 ML UDCUP PO PRN (03:23)
[2017-03-25] MEDS ORDERED: hydrALAZINE 20 MG/ML VIAL SLOW IVP PRN (03:27)
[2017-03-25] MEDS: HYDROcodone/Acetaminophen 5/325 mg Tablet PO PRN (04:12)
[2017-03-25 05:31] LABS: #Eosinphils 0.4 thou/uL (0.0-0.7); #Lymphocytes 0.9 thou/uL (1.20-3.40); #Neutrophils 6.4 thou/uL (1.40-6.50); %Basophils 0.2 % (0.0-1.0); %Eosinophils 5.2 % (0.0-10.0); %Lymphocytes 9.9 % (21.0-51.0); %Monocytes 11.1 % (0.0-10.0); Hematocrit 33.6 % (42.0-52.0); Mean Platelet Volume 7.4 fL (7.4-10.4); Red Blood Cell (RBC) Count 3.53 mill/uL (4.70-6.10); White Blood Cell (WBC) Count 8.7 thou/uL (4.8-10.8)
--- NOTE | 2017-03-25 05:47 | HP ---
PRIMARY CARE PHYSICIAN: Dr. Haskins CHIEF COMPLAINT: Legs swelling and blood pressure has been going up. HISTORY OF PRESENT ILLNESS: Mr. Dash is a very pleasant 76-year-old gentleman that has a history of coronary artery disease and hypertension as well as elevated cholesterol. He was recently treate d at our facility for an abscess in his thigh. The area was I\\T\\D'd and the patient was placed on I V vancomycin and discharged to rehab in [facility] and then finally discharged home. He says he baca s been home for about 4-5 days and while he was at home, he started noticing increased swelling in h is legs and feet. He says it was starting to swell \\\\"so bad,\\\\" then he also says that his blood p ressure has been going up, started gradually and then he says the other day he noted that his blood pressure was 200/90 and this is the reason he came to the emergency room for evaluation. In the ER, it was noted that his proBNP was elevated as well as his weight has gone up and for this reason, he is being admitted for possible CHF new onset. The patient says he has no history of heart failure that he is aware of. He does have a history of coronary artery disease; however, he sees Dr. Jack gregory on a regular basis. He says Dr. Gilmore told him he had some type of valve that was not closin g properly. He says that he was going to be sent to [place], but apparently this valve \\\\"stabilize d\\\\" and he said that Dr. Gilmore said he no longer needs to go to [facility], but wants to check in [facility] t sounds like an echo every 6 months. Otherwise, he does not know of any other heart problems. The patient denies any chest pain. He denies any palpitations. He says he is not short of breath exce pt if he lays in certain way, then he may get a little winded and he was not short of breath at home . REVIEW OF SYSTEMS: CONSTITUTIONAL: There have been no fevers, no chills, no night sweats. Actually, he has had weight gain. He did have some subjective fever that is. HEENT: He denies any headaches, no dizziness, no visual changes, no sore throat, rhinorrhea, neck p ain, no adenopathy. PULMONARY: No hemoptysis, no cough, no wheezing. CARDIOVASCULAR: As the history of present illness. GASTROINTESTINAL: No abdominal pain, no nausea, no vomiting, no change in bowels. GENITOURINARY: No urinary frequency, hematuria, or hesitancy. NEUROLOGIC: No focal weakness, numbness, no seizures. PSYCHIATRIC: No symptoms of anxiety or depression. SKIN AND INTEGUMENT: No skin changes. No rash. PAST MEDICAL HISTORY: Significant for coronary artery disease, hyperlipidemia, hypertension, cerebr ovascular disease, and gastroesophageal reflux disease. PAST SURGICAL HISTORY: He has had a bypass surgery, 3 vessels in 2002, pacemaker in 2013, knee surg yris, prostatectomy and transurethral resection of the prostate, lumbar spine surgery, hernia repair, and the left total knee replacement revision. SOCIAL HISTORY: He is . He lives alone. He is a nonsmoker, nondrinker. CODE STATUS: FULL CODE. FAMILY HISTORY: Significant for heart disease. ALLERGIES: No known drug allergies. MEDICATIONS: Include tramadol 100 mg as directed, vancomycin 1 gram IV q.12 h., potassium chloride 10 mEq daily, metoprolol succinate 12.5 mg daily, Dexter 5/325 q.6 p.r.n., gabapentin 300 mg t.i.d. a nd furosemide 20 mg daily. PHYSICAL EXAMINATION: GENERAL: He is alert and oriented. He appears to be in no acute distress. VITAL SIGNS: In the emergency room, his blood pressure was ranging from 160 to 178 over 90, heart r ate 74, respiratory rate of 18, temperature is 98.2. HEENT: Pupils are equal, round, and reactive. Extraocular muscles are intact. Sclerae are anicter ic. Throat, no erythema, no exudates. NECK: No adenopathy, no bruits. LUNGS: Clear to auscultation. There is no wheezing, no rales. CARDIOVASCULAR: He does have a grade 2/6 what sounds like a holosystolic murmur and it is masking S 1. ABDOMEN: Obese, soft, it is nontender, nondistended. Positive for bowel sounds. No rebound, no gu arding. EXTREMITIES: He has got 1-2+ pitting edema. NEUROLOGIC: The exam is nonfocal. LABORATORY RESULTS: White blood cell count 8.1, hemoglobin 11.2, hematocrit is 35.1, platelet count is 178,000. Sodium 143, potassium 3.0, chloride is 104, CO2 is 28, BUN of 12, creatinine of 1.16, glucose was 78. His EKG was sinus rhythm with first degree AV block and he has a right bundle branc h block. ASSESSMENT AND PLAN: This is a 76-year-old gentleman that presents with increasing lower extremity edema as well as rising blood pressure. The patient has a history of coronary artery disease and po ssibly valvular heart disease as well. The patient also has a history of valvular heart disease. T his puts him at risk for possible heart failure. He says it has been about 6 months since his last echo and he was anticipating having one done actually within the next week or two. Therefore, we wi ll go ahead and repeat the echo to see if there has been any significant change. We will likely nee d to get the results of his prior studies from Dr. Gilmore and start him on IV diuretics, monitoring his potassium and blood pressure closely. Continue his antibiotics for the continued treatment from his thigh abscess. Depending on the results of the echo, we will determine whether or not he will require Cardiology evaluation and we will need to restart and reconcile his other home medications.
[2017-03-25] MEDS ORDERED: Furosemide 40 MG/4 ML VIAL SLOW IVP SCH (06:00)
[2017-03-25 06:12] LABS: Anion Gap 15 mmol/L (10-20); BUN (Urea Nitrogen) 11 mg/dL (8.4-25.7); Calc. Creatinine Clearance 73 mL/min (70-130); Calcium 8.7 mg/dL (7.8-10.44); Carbon Dioxide 25 mmol/L (23-31); Chloride 106 mmol/L (98-107); Estimated GFR-MDRD 57
[2017-03-25] MEDS: Furosemide 40 MG/4 ML VIAL SLOW IVP SCH ×2 (06:41→14:52)
[2017-03-25] MEDS ORDERED: Sodium Chloride 0.9% 10 ML ONE (08:46)
[2017-03-25] MEDS: Potassium Chloride 20 MEQ TAB PO SCH ×2 (09:15→18:15)
[2017-03-25] MEDS: Enoxaparin Sodium 40 MG/0.4 ML SYRINGE SC SCH (09:15)
[2017-03-25] MEDS: Docusate 100 MG CAP PO SCH ×2 (09:15→20:48)
[2017-03-25] MEDS: Famotidine 20 MG TAB PO SCH ×2 (09:16→20:48)
[2017-03-25] MEDS: Vancomycin HCl 1 GM in Premix Bag 1 BAG IVPB SCH ×2 (09:18→20:48)
[2017-03-25] MEDS ORDERED: Gabapentin 300 MG CAP PO SCH ×2 (11:00→11:45)
[2017-03-25] MEDS: traMADol HCl 50 MG TAB PO PRN (11:41)
--- NOTE | 2017-03-25 14:50 | PDOC.PN ---
- Subjective Encounter Start Date: 03/25/17 Encounter Start Time: 14:30 Subjective: f/u for ? new-onset CHF. 2D echo pending. Feels ok overall. No BM in 5 days - Objective Resuscitation Status: Resuscitation Status FULL:Full Resuscitation MAR Reviewed: Yes Vital Signs & Weight: Vital Signs (12 hours) Temp Pulse Resp BP Pulse Ox 03/25/17 08:00 98.2 F 69 18 164/77 H 96 03/25/17 04:49 95 03/25/17 04:00 98.5 F 66 20 157/84 H 94 L Weight Weight 227 lb 1.218 oz Result Diagrams: 03/25/17 05:16 03/25/17 05:16 Additional Labs: Accuchecks 03/25/17 06:09 POC Glucose 105 Laboratory Tests 03/24/17 03/24/17 03/24/17 15:00 15:00 22:12 Troponin I 0.053 H 0.043 H B-Natriuretic Peptide 1492.3 H 03/25/17 03/25/17 00:54 05:16 Troponin I 0.056 H B-Natriuretic Peptide 1410.0 H EKG Reviewed by me: Yes (Tele - Intermittent A-pacing) Phys Exam - Physical Examination Constitutional: NAD HEENT: PERRLA, oral pharynx no lesions Neck: no JVD, supple Respiratory: no wheezing Cardiovascular: RRR obese Gastrointestinal: soft, non-tender, no distention, positive bowel sounds Musculoskeletal: pulses present, edema present Neurological: normal sensation, moves all 4 limbs Psychiatric: A&O x 3 Skin: normal turgor, cap refill <2 seconds Dx/Plan (1) CHF (congestive heart failure) Code(s): I50.9 - HEART FAILURE, UNSPECIFIED Status: Acute (2) Fever Code(s): R50.9 - FEVER, UNSPECIFIED Status: Acute (3) Thigh abscess Code(s): L02.419 - CUTANEOUS ABSCESS OF LIMB, UNSPECIFIED Status: Chronic Comment: L thigh, currently resolving, continue Vancomycin IV until 04/02/17 (4) CAD (coronary artery disease) Code(s): I25.10 - ATHSCL HEART DISEASE OF [place] CORONARY ARTERY W/O ANG PCTRS Status: Chronic Comment: Stable, no evidence of ACS (5) HTN (hypertension) Code(s): I10 - ESSENTIAL (PRIMARY) HYPERTENSION Status: Chronic Comment: Stable, resume home BP regimen (6) CKD (chronic kidney disease), stage III Code(s): N18.3 - CHRONIC KIDNEY DISEASE, STAGE 3 (MODERATE) Status: Chronic Comment: Avoid nephrotoxic meds and contrast media, repeat BMP in am - Plan 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
[2017-03-25] MEDS: Gabapentin 300 MG CAP PO SCH ×2 (14:55→20:48)
[2017-03-25] MEDS ORDERED: Bisacodyl 10 MG SUPP PR PRN (15:01)
[2017-03-26] MEDS: Furosemide 40 MG/4 ML VIAL SLOW IVP SCH (05:20)
[2017-03-26] MEDS: traMADol HCl 50 MG TAB PO PRN (09:20)
[2017-03-26] MEDS: Docusate 100 MG CAP PO SCH ×2 (09:22→20:43)
[2017-03-26] MEDS: Famotidine 20 MG TAB PO SCH ×2 (09:22→20:43)
[2017-03-26] MEDS: Vancomycin HCl 1 GM in Premix Bag 1 BAG IVPB SCH ×2 (09:22→20:50)
[2017-03-26] MEDS: Gabapentin 300 MG CAP PO SCH ×3 (09:22→20:43)
[2017-03-26] MEDS: Potassium Chloride 20 MEQ TAB PO SCH ×2 (09:22→17:20)
[2017-03-26] MEDS: Enoxaparin Sodium 40 MG/0.4 ML SYRINGE SC SCH (09:23)
[2017-03-26] MEDS ORDERED: METOPROLOL SUCCINATE PO SCH ×2 (10:20→21:00)
--- NOTE | 2017-03-26 10:26 | PDOC.PN ---
- Subjective Encounter Start Date: 03/26/17 Encounter Start Time: 10:00 Subjective: f/u for edema and ? CHF. Echo showing EF 55% and . Tolerating Lasix -: and diuresing appropriately. + BM multiple times this am. Nsg reports -: some tachycardia/A-fib with current PM. - Objective Resuscitation Status: Resuscitation Status FULL:Full Resuscitation MAR Reviewed: Yes Vital Signs & Weight: Vital Signs (12 hours) Temp Pulse Resp BP BP Pulse Ox 03/26/17 09:21 98 182/87 H 03/26/17 09:08 98.5 F 98 18 182/87 H 93 L 03/26/17 04:00 98.2 F 75 20 162/75 H 94 L Weight Weight 227 lb 1.218 oz I&O: 03/25/17 03/26/17 03/27/17 06:59 06:59 06:59 Intake Total 1140 Balance 1140 Result Diagrams: 03/25/17 05:16 03/25/17 05:16 Radiology Reviewed by me: Yes (2D echo - EF 50-55%, severe ) EKG Reviewed by me: Yes (Tele - A-fib in low 100's, intermittent pacing) Phys Exam - Physical Examination Constitutional: NAD HEENT: PERRLA, oral pharynx no lesions Neck: no JVD Respiratory: no wheezing, clear to auscultation bilateral Cardiovascular: irregular obese Gastrointestinal: soft, non-tender, no distention, positive bowel sounds Musculoskeletal: pulses present, edema present Neurological: moves all 4 limbs Psychiatric: A&O x 3 Skin: normal turgor, cap refill <2 seconds Dx/Plan (1) CHF (congestive heart failure) Code(s): I50.9 - HEART FAILURE, UNSPECIFIED Status: Acute Qualifiers: Congestive heart failure type: unspecified congestive heart failure type Comment: EF 50-55%, severe noted likely a contributing factor to edema (2) Fever Code(s): R50.9 - FEVER, UNSPECIFIED Status: Acute Comment: Resolved (3) Thigh abscess Code(s): L02.419 - CUTANEOUS ABSCESS OF LIMB, UNSPECIFIED Status: Chronic Comment: L thigh, currently resolving, continue Vancomycin IV until 04/02/17 (4) CAD (coronary artery disease) Code(s): I25.10 - ATHSCL HEART DISEASE OF [place] CORONARY ARTERY W/O ANG PCTRS Status: Chronic Comment: Stable, no evidence of ACS, resume dual- antiplatelet therapy (5) HTN (hypertension) Code(s): I10 - ESSENTIAL (PRIMARY) HYPERTENSION Status: Chronic Qualifiers: Hypertension type: essential hypertension Qualified Code(s): I10 - Essential (primary) hypertension Comment: Stable, resume home BP regimen, resume Metoprolol 12.5mg daily (6) CKD (chronic kidney disease), stage III Code(s): N18.3 - CHRONIC KIDNEY DISEASE, STAGE 3 (MODERATE) Status: Chronic Comment: Avoid nephrotoxic meds and contrast media, repeat BMP in am (7) Aortic stenosis, severe Code(s): I35.0 - NONRHEUMATIC AORTIC (VALVE) STENOSIS Status: Chronic Comment: Continue supportive measures, fluid mgmt - Plan continue antibiotics, 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
[2017-03-26] MEDS ORDERED: Clopidogrel Bisulfate 75 MG TAB PO SCH (11:00)
[2017-03-26] MEDS ORDERED: Aspirin 81 mg Enteric Coated Tablet PO SCH (11:00)
[2017-03-26] MEDS ORDERED: Furosemide 40 MG TAB PO SCH (14:00)
[2017-03-26 20:41] LABS: Vancomycin, Trough 31.4 ug/mL
[2017-03-26] MEDS: HYDROcodone/Acetaminophen 5/325 mg Tablet PO PRN (20:49)
[2017-03-26] MEDS ORDERED: VANCOMYCIN IVPB PRN (22:54)
[2017-03-27 06:29] LABS: Anion Gap 14 mmol/L (10-20); BUN (Urea Nitrogen) 16 mg/dL (8.4-25.7); Calc. Creatinine Clearance 51 mL/min (70-130); Calcium 8.8 mg/dL (7.8-10.44); Carbon Dioxide 27 mmol/L (23-31); Chloride 104 mmol/L (98-107); Estimated GFR-MDRD 37
[2017-03-27] MEDS: Furosemide 40 MG TAB PO SCH (08:52)
[2017-03-27] MEDS: Gabapentin 300 MG CAP PO SCH ×3 (08:53→20:24)
[2017-03-27] MEDS: Aspirin 81 mg Enteric Coated Tablet PO SCH (08:53)
[2017-03-27] MEDS: Clopidogrel Bisulfate 75 MG TAB PO SCH (08:56)
[2017-03-27] MEDS: Famotidine 20 MG TAB PO SCH ×2 (08:56→20:24)
[2017-03-27] MEDS: Docusate 100 MG CAP PO SCH ×2 (08:57→20:24)
[2017-03-27] MEDS: Enoxaparin Sodium 40 MG/0.4 ML SYRINGE SC SCH (08:58)
--- NOTE | 2017-03-27 16:13 | PDOC.PN ---
- Subjective Encounter Start Date: 03/27/17 Encounter Start Time: 15:45 Subjective: f/u CHF and aortic stenosis. Feels good overall. No dyspnea or cough. -: No fever. - Objective Resuscitation Status: Resuscitation Status FULL:Full Resuscitation MAR Reviewed: Yes Vital Signs & Weight: Vital Signs (12 hours) Temp Pulse Resp BP Pulse Ox 03/27/17 12:00 98.2 F 100 14 137/71 94 L 03/27/17 08:46 97.8 F 89 18 130/92 H 96 03/27/17 04:00 98.3 F 97 18 122/65 93 L Weight Weight 229 lb 14.4 oz I&O: 03/26/17 03/27/17 03/28/17 06:59 06:59 06:59 Intake Total 1140 1760 Balance 1140 1760 Result Diagrams: 03/25/17 05:16 03/27/17 05:27 Additional Labs: Laboratory Tests 03/24/17 03/24/17 03/24/17 15:00 15:00 22:12 Creatinine Troponin I 0.053 H 0.043 H B-Natriuretic Peptide 1492.3 H Vancomycin Trough 03/25/17 03/25/17 03/25/17 00:54 05:16 05:16 Creatinine 1.22 Troponin I 0.056 H B-Natriuretic Peptide 1410.0 H Vancomycin Trough 03/26/17 20:00 Creatinine Troponin I B-Natriuretic Peptide Vancomycin Trough 31.4 H* EKG Reviewed by me: Yes (Tele - V-pacing with underlying A-fib) Phys Exam - Physical Examination Constitutional: NAD HEENT: PERRLA, oral pharynx no lesions Neck: no JVD, supple Respiratory: no wheezing Cardiovascular: irregular Gastrointestinal: soft, non-tender, no distention, positive bowel sounds Musculoskeletal: pulses present, edema present Neurological: normal sensation, moves all 4 limbs Psychiatric: A&O x 3 Skin: normal turgor, cap refill <2 seconds Dx/Plan (1) CHF (congestive heart failure) Code(s): I50.9 - HEART FAILURE, UNSPECIFIED Status: Acute Qualifiers: Congestive heart failure type: unspecified congestive heart failure type Comment: EF 50-55%, severe noted likely a contributing factor to edema (2) Fever Code(s): R50.9 - FEVER, UNSPECIFIED Status: Acute Comment: Resolved (3) Thigh abscess Code(s): L02.419 - CUTANEOUS ABSCESS OF LIMB, UNSPECIFIED Status: Chronic Comment: L thigh, currently resolving, continue Vancomycin IV until 04/02/17, hold x 24h then repeat Vancomycin level (4) CAD (coronary artery disease) Code(s): I25.10 - ATHSCL HEART DISEASE OF [place] CORONARY ARTERY W/O ANG PCTRS Status: Chronic Comment: Stable, no evidence of ACS, resume dual- antiplatelet therapy (5) HTN (hypertension) Code(s): I10 - ESSENTIAL (PRIMARY) HYPERTENSION Status: Chronic Qualifiers: Hypertension type: essential hypertension Qualified Code(s): I10 - Essential (primary) hypertension Comment: Stable, resume home BP regimen, resume Metoprolol 12.5mg daily (6) CKD (chronic kidney disease), stage III Code(s): N18.3 - CHRONIC KIDNEY DISEASE, STAGE 3 (MODERATE) Status: Chronic Comment: Avoid nephrotoxic meds and contrast media, repeat BMP in am (7) Aortic stenosis, severe Code(s): I35.0 - NONRHEUMATIC AORTIC (VALVE) STENOSIS Status: Chronic Comment: Continue supportive measures, fluid mgmt (8) Atrial fibrillation Code(s): I48.91 - UNSPECIFIED ATRIAL FIBRILLATION Status: Chronic Comment: Rate controlled, no anticoagulation due to hx of bleeding and high fall risk - Plan continue antibiotics, PT/OT, case management social worker, DVT proph w/SCDs Stable overall -: Hold Vancomycin x 24h -: PT for mobilization -: Plan for transfer to swing bed/rehab 03/28/17 -: AM lab: Vancomycin level * .
[2017-03-27] MEDS: traMADol HCl 50 MG TAB PO PRN (20:24)
[2017-03-27 21:28] LABS: Vancomycin, Random 19.6 ug/mL (See Comment)
[2017-03-28 06:08] VITALS: BMI 32.4
[2017-03-28 08:24] VITALS: TEMP 96.2
[2017-03-28] MEDS ORDERED: Vancomycin HCl 1 GM in Premix Bag 1 BAG IVPB SCH (09:00)
--- NOTE | 2017-03-28 09:53 | DIS ---
DATE OF ADMISSION: 03/24/2017 DATE OF DISCHARGE: 03/28/2017 DISCHARGE DIAGNOSES: 1. Congestive heart failure with ejection fraction of 50-55% likely diastolic, stable. 2. Severe aortic stenosis. 3. Febrile episode, resolved. 4. Left thigh abscess status post incision and drainage with methicillin-resistant Staphylococcus a ureus, resolving. 5. Coronary artery disease, chronic and stable. 6. History of sick sinus syndrome, status post pacemaker placement. 7. Intermittent atrial fibrillation with atrial pacing controlled rate. No anticoagulation due to fall risk and history of bleeding. 8. Chronic kidney disease stage 3. 9. Severe deconditioning. CONSULTATIONS: None. PERTINENT LABORATORY DATA AND X-RAY FINDINGS: Potassium ranged between 3.2-3.6. Creatinine ranged between 1.22-1.77, estimated GFR ranged between 37-57. BNP 1410, previously noted on 03/24/2017, 14 92. CBC showed hemoglobin of 11.2, hematocrit 34, platelet count 199. Vancomycin level ranged betw een 19.6-31.4. A 2D transthoracic echocardiogram dated 03/25/2017 showed ejection fraction of 50%-5 5%. Severe aortic stenosis. Portable chest x-ray dated 03/24/2017 showed right upper extremity PIC C line in place. Limited evaluation of the lung bases. HOSPITAL COURSE: Patient was admitted to the telemetry unit after initially presenting with [facility] lower extremity edema and elevated blood pressure. The patient underwent evaluation with BNP in the 1400 range, undergoing evaluation with 2D transthoracic echocardiogram showing a preserved eject ion fraction of 50%-55%; however, severe aortic stenosis was noted by history as well as confirmed b y echocardiogram evaluation. The patient was initially treated with IV Lasix therapy with overall s ymptomatic improvement and decreased swelling of the lower extremities. The patient rapidly clinica lly improved and was maintaining O2 saturations in the mid 90% range on room air. The patient recei sonya general supportive measures and continued IV antibiotic therapy with vancomycin, previously init iated for MRSA wound infection of the left thigh. Current recommendations are to continue IV antibi otic therapy with vancomycin until 04/02/2017. The patient was noted with limited mobility status w ith recommendations for ongoing skilled care due to concern for safety and fall risk at home. The [facility] has been approved to transition to [facility] and will transfer on 03/28/2017. DISCHARGE MEDICATIONS: 1. Lasix 40 mg 1 tablet p.o. daily. 2. Aspirin 81 mg 1 tablet p.o. daily. 3. Plavix 75 mg 1 tablet p.o. daily. 4. Gabapentin 300 mg p.o. t.i.d. 5. Metoprolol XL 12.5 mg p.o. at bedtime. 6. Tramadol 50 mg 2 tablets p.o. daily p.r.n. 7. Potassium chloride 10 mEq 1 tablet p.o. daily. 8. Vancomycin 1 gram IV q.12 hours until 04/02/2017. FOLLOWUP: Patient will follow up with Dr. Haskins within 7 days of discharge. The patient will fol low up with Dr. Jack Gilmore, Cardiology Service and to call his office for appointment time and date . CONDITION ON DISCHARGE: Stable. ACTIVITY: Ad gladis. Rolling walker with standby/contact guard assistance with high fall risk precaut ions. DIET: Heart healthy. CODE STATUS: FULL. DISPOSITION: Discharged to [facility] on 03/28/2017. Total time in preparing and coordinating discharge 32 minutes.
[2017-03-28] MEDS: Enoxaparin Sodium 40 MG/0.4 ML SYRINGE SC SCH (10:08)
[2017-03-28] MEDS: Furosemide 40 MG TAB PO SCH (10:09)
[2017-03-28] MEDS: Clopidogrel Bisulfate 75 MG TAB PO SCH (10:10)
[2017-03-28] MEDS: Famotidine 20 MG TAB PO SCH (10:10)
[2017-03-28] MEDS: Gabapentin 300 MG CAP PO SCH (10:10)
[2017-03-28] MEDS: Aspirin 81 mg Enteric Coated Tablet PO SCH (10:10)
[2017-03-28] MEDS: Docusate 100 MG CAP PO SCH (10:10)
[2017-03-28 12:28] VITALS: BP 127/71
== END 2017-03-28 13:57 | disposition swing bed (61) | DRG 291 ==
LOC: ERS 18:29 → 2NO 20:00
PROVIDERS: ADMIT Internal Medicine; ATTEND Internal Medicine
DX: I13.0 Hypertensive heart and chronic kidney disease with heart failure and stage 1 through stage 4 chronic kidney disease, or unspecified chronic kidney disease (principal); I50.31 Acute diastolic (congestive) heart failure; I49.5 Sick sinus syndrome; L02.416 Cutaneous abscess of left lower limb; I48.2 Chronic atrial fibrillation; N18.3 Chronic kidney disease, stage 3 (moderate); I35.0 Nonrheumatic aortic (valve) stenosis; Z95.1 Presence of aortocoronary bypass graft; I25.10 Atherosclerotic heart disease of native coronary artery without angina pectoris; E87.6 Hypokalemia; E78.5 Hyperlipidemia, unspecified; K21.9 Gastro-esophageal reflux disease without esophagitis; Z96.652 Presence of left artificial knee joint; Z95.0 Presence of cardiac pacemaker; Z86.14 Personal history of Methicillin resistant Staphylococcus aureus infection
CPT/HCPCS: 36415; 36416; 80048; 80202; 83880; 84484; 85025; 93306; 93798; 99285; A4216; G8978-GP-CM; G8979-GP-CK; G8987-GO-CL; G8988-GO-CJ; J0360; J1650; J1940; J2405; J3370

== ENCOUNTER 2017-04-05 17:11 | Inpatient (IN) | payer MEDICARE, OTHER ==
[~2017-04-05 17:11] MED LIST: ISOVUE-370 76%-LOCM 1 ML ONE
[2017-04-05 18:06] LABS: #Eosinphils 0.2 thou/uL (0.0-0.7); #Monocytes 0.8 thou/uL (0.11-0.59); #Neutrophils 4.8 thou/uL (1.40-6.50); %Basophils 0.5 % (0.0-1.0); %Eosinophils 3.3 % (0.0-10.0); %Lymphocytes 14.9 % (21.0-51.0); %Monocytes 12.1 % (0.0-10.0); Hematocrit 32.7 % (42.0-52.0); Mean Platelet Volume 7.6 fL (7.4-10.4); Red Blood Cell (RBC) Count 3.33 mill/uL (4.70-6.10); White Blood Cell (WBC) Count 6.9 thou/uL (4.8-10.8)
[2017-04-05 18:28] LABS: ALT (SGPT) 7 U/L (8-55); AST (SGOT) 16 U/L (5-34); Alkaline Phosphatase 59 U/L (40-150); Anion Gap 11 mmol/L (10-20); BUN (Urea Nitrogen) 31 mg/dL (8.4-25.7); Bilirubin, Total 0.5 mg/dL (0.2-1.2); Calc. Creatinine Clearance 0 mL/min (70-130); Carbon Dioxide 30 mmol/L (23-31); Chloride 103 mmol/L (98-107); Estimated GFR-MDRD 40; Protein, Total 6.7 g/dL (5.8-8.1)
[2017-04-05] MEDS ORDERED: Furosemide 40 MG/4 ML VIAL ONE (19:19)
--- NOTE | 2017-04-05 19:48 | CT ---
CT ANGIOGRAM OF THE CHEST WITH CONTRAST 04/05/17 HISTORY: Shortness of breath. Chest pain. COMPARISON: Chest radiograph same day. FINDINGS: Thyroid is mildly heterogeneous. No pulmonary arterial filling defect. Pulmonary trunk size is upper limits of normal measuring 29 mm. Dense vascular calcifications of the aorta without aneurysmal dilat ation. Heart size is enlarged. No pericardial effusion. There is mild emphysematous changes in the lung apices. There is subpleural reticulation of the lung bases. There are large effusions bilaterally which are layering. There is compressive atelectasis in both lung bases. There is reflux of contrast of the suprahepatic IVC as well as the hepatic veins. No adenopathy. Ther e is a mildly prominent right peritracheal lymph node although retains its normal ovoid shape. There are bridging osteophytes throughout the thoracic spine. No displaced rib fracture. IMPRESSION: 1. No pulmonary arterial filling defect. 2. Mild prominence of the pulmonary trunk measuring just under 3 cm. 3. Large layering bilateral pleural effusions. 4. Mild emphysema. 5. Mild subpleural reticulation with an apicobasal gradient suggesting nonspecific interstitial pneumonitis. POS: [facility]
[2017-04-05] MEDS ORDERED: Acetaminophen 325 MG TAB PO PRN (20:56)
[2017-04-05] MEDS ORDERED: Ondansetron HCl/PF 4 MG/2 ML Vial IVP PRN (20:56)
[2017-04-05] MEDS ORDERED: Heparin 5,000 UNITS/ML VIAL SC SCH (21:00)
--- NOTE | 2017-04-05 21:13 | PDOC.EVN ---
Event Note - Event Note Event Note: [id number] H&P Dictated 1. Acute CHF Exacerbation 2. Wide complex tachychardia + Afib 3. Abnormal cardiac enzymes 4. H/O HTN plan; see orders
[2017-04-05 23:34] LABS: Troponin I 0.082 ng/mL (< 0.028)
[2017-04-06] MEDS: traMADol HCl 50 MG TAB PO PRN ×3 (00:24→19:31)
[2017-04-06] MEDS: Enoxaparin Sodium 40 MG/0.4 ML SYRINGE SC SCH ×2 (00:27→21:01)
[2017-04-06] MEDS: Diltiazem HCl 125 MG, Admixture Fee 1 EACH in Sodium Chloride 0.9% 100 ML SLOW IVP SCH (04:08)
[2017-04-06 04:50] LABS: #Eosinphils 0.2 thou/uL (0.0-0.7); #Lymphocytes 0.8 thou/uL (1.20-3.40); #Monocytes 0.8 thou/uL (0.11-0.59); #Neutrophils 4.3 thou/uL (1.40-6.50); %Basophils 0.4 % (0.0-1.0); %Eosinophils 3.8 % (0.0-10.0); %Lymphocytes 13.7 % (21.0-51.0); %Monocytes 12.1 % (0.0-10.0); Hematocrit 32.8 % (42.0-52.0); Mean Platelet Volume 8.1 fL (7.4-10.4); Red Blood Cell (RBC) Count 3.36 mill/uL (4.70-6.10); White Blood Cell (WBC) Count 6.1 thou/uL (4.8-10.8)
[2017-04-06 05:02] LABS: ALT (SGPT) Less than 7 U/L (8-55); AST (SGOT) 15 U/L (5-34); Alkaline Phosphatase 54 U/L (40-150); Anion Gap 12 mmol/L (10-20); BUN (Urea Nitrogen) 31 mg/dL (8.4-25.7); Bilirubin, Total 0.4 mg/dL (0.2-1.2); Calc. Creatinine Clearance 0 mL/min (70-130); Carbon Dioxide 30 mmol/L (23-31); Chloride 102 mmol/L (98-107); Estimated GFR-MDRD 39; Globulin 2.8 g/dL (2.4-3.5); Protein, Total 6.3 g/dL (5.8-8.1)
[2017-04-06 05:12] LABS: Troponin I 0.084 ng/mL (< 0.028)
--- NOTE | 2017-04-06 06:35 | HP ---
DATE OF ADMISSION: 04/05/2017 CHIEF COMPLAINT: Wide-complex tachycardia. HISTORY OF PRESENT ILLNESS: The patient is a 76-year-old female with a past medical history of hyper tension, coronary artery disease, CHF, hyperlipidemia, CVA, GERD, initially was in [facility] fo r acute CHF exacerbation. The patient was initially in our hospital beginning of last month for left thigh cellulitis and abscess. The patient was discharged from the hospital to rehabilitation on 02/2017. In rehab, the patient finished rehabilitation and got discharged from the rehabilitation. Later on, the patient went to [place] approximately 7-8 days back to [place] because of bilateral lower extremity swelling, so the patient was admitted in [place] for the last 7 days and was getting IV diu retics. While in [place], the patient all of a sudden developed some wide-complex tachycardia, possib ly atrial fibrillation with RVR, so the patient was taken down from the upstairs to the ER. In the E R, the patient was evaluated and was transferred here. The patient denies any chest pain, denies any palpation, denies any dizziness, denies any nausea, denies any vomiting. The patient did finish las t day course of IV antibiotics for the left thigh abscess yesterday. PAST MEDICAL HISTORY: As per HPI. PAST SURGICAL HISTORY: CABG, pacemaker, GERD. SOCIAL HISTORY: Denies smoking, denies alcohol, denies any drugs. FAMILY HISTORY: Positive for heart problems. REVIEW OF SYSTEMS: Constitutional: Denies any fever, denies any chills. Eyes: Denies vision probl ems. Ears: Denies any hearing loss. Neck: Denies any neck pain. Cardiovascular System: Denies a ny chest pain. Respiratory system: Positive for dyspnea. Gastrointestinal System: Denies nausea, vomiting. Musculoskeletal: Positive for bilateral lower extremity swelling. Integumentary: Denies any rash. Psychiatric: Denies any anxiety. All other review of systems are reviewed and are negat mya. PHYSICAL EXAMINATION: CONSTITUTIONAL/VITAL SIGNS: At the time of H&P performed, blood pressure is 130/70, afebrile, pulse ox 97%. GENERAL: The patient appears tired. HEENT: Anterior nares patent. Nose normal. Ears normal. Teeth intact. Tongue is moist. NECK: Supple, no JVD. CARDIOVASCULAR SYSTEM: S1, S2 present. Regular rate and rhythm. No murmurs, no rubs, no gallops. RESPIRATORY SYSTEM: Diminished breath sounds present: No wheezing, no rhonchi. Positive for crackl es. GASTROINTESTINAL: Abdomen is soft, nontender, no guarding, no organomegaly, no masses felt. MUSCULOSKELETAL: Bilateral lower extremity 1+ to 2+ pitting edema present. Left thigh wound site ap pears healed well. PSYCHIATRIC: Mood appropriate at this time. INTEGUMENT: No obvious rashes seen. LABORATORY DATA: At the time of H&P performed, white count 6.9, hemoglobin 10.6, platelet count is 2 16. D-dimer 0.58. BMP showed sodium 140, potassium 4.1, chloride 103, CO2 of 30, BUN 31, creatinine 1.67. Troponin 0.080. BNP 1324. D-dimer 0.58. CT chest, no obvious PE seen. ASSESSMENT AND PLAN: The patient is a 76-year-old male admitted secondary to wide-complex tachycardia. 1. History of wide-complex tachycardia plus history of atrial fibrillation. His EKG appears positiv e for premature ventricular contractions and atrial fibrillation. We will go ahead and consult Cardi ology to evaluate the patient. The patient had an echocardiogram recently. We will wait for Cardiol ogy input. We will check serial cardiac enzymes. Elevated troponin might be secondary to demand isc hemia. We will monitor the patient closely. 2. Acute on chronic congestive heart failure exacerbation, possible diastolic. Plan is to continue IV Lasix 40 mg b.i.d. We will monitor the patient's strict I's and O's. 3. History of coronary artery disease. Continue home Plavix and aspirin. 4. History of hypertension. Monitor blood pressure. Continue home blood pressure medications. 5. History of hyperlipidemia. Continue home medications. 6. History of gastroesophageal reflux disease, PPI. The case was discussed in detail with the patient.
[2017-04-06] MEDS ORDERED: hydrALAZINE 20 MG/ML VIAL SLOW IVP PRN (08:02)
[2017-04-06] MEDS ORDERED: Chloraseptic Spray 180 ml Bottle PO PRN (08:02)
[2017-04-06] MEDS ORDERED: Artificial Tears 18 DROP/0.9 ML EA EYE PRN (08:02)
[2017-04-06] MEDS ORDERED: Loperamide HCl 2 MG CAP PO PRN (08:02)
[2017-04-06] MEDS ORDERED: Labetalol HCl 100 MG/20 ML VIAL SLOW IVP PRN (08:02)
[2017-04-06] MEDS ORDERED: Nitroglycerin 0.4 MG TAB (25 Tab Bottle) SL PRN (08:02)
[2017-04-06] MEDS ORDERED: Mag-Al 1200 mg/1200 mg/30 ML UDCUP PO PRN (08:02)
[2017-04-06] MEDS ORDERED: Milk Of Magnesia 30 ML UDCUP PO PRN (08:02)
[2017-04-06] MEDS ORDERED: Ondansetron ODT 4 MG TAB PO PRN (08:02)
[2017-04-06] MEDS ORDERED: HYDROcodone/Acetaminophen 5/325 mg Tablet PO PRN (08:02)
[2017-04-06] MEDS ORDERED: Loratadine 10 MG TAB PO PRN (08:02)
[2017-04-06] MEDS ORDERED: Zolpidem Tartrate 5 MG TAB PO PRN (08:02)
[2017-04-06] MEDS ORDERED: Eucerin (Mineral Oil/Petrolatum,White) 30 gm Jar TOP PRN (08:02)
[2017-04-06] MEDS ORDERED: Diabetic Tussin 200 MG/10 ML UDCUP PO PRN (08:02)
[2017-04-06] MEDS ORDERED: Senokot 8.6 MG TAB PO PRN (08:02)
[2017-04-06] MEDS ORDERED: Sodium Chloride 0.65% Nasal 44 ML BOT EA NARE PRN (08:02)
[2017-04-06] MEDS: Furosemide 40 MG/4 ML VIAL SLOW IVP SCH (08:50)
[2017-04-06] MEDS: Aspirin 81 mg Enteric Coated Tablet PO SCH (08:50)
[2017-04-06] MEDS: Gabapentin 300 MG CAP PO SCH ×3 (08:50→21:00)
[2017-04-06] MEDS: Clopidogrel Bisulfate 75 MG TAB PO SCH (08:50)
[2017-04-06] MEDS: Famotidine 20 MG TAB PO SCH ×2 (08:50→21:01)
[2017-04-06] MEDS: Nystatin Powder 15 GM BOT TOP SCH ×2 (09:48→21:00)
--- NOTE | 2017-04-06 10:09 | PDOC.PN ---
- Subjective Encounter Start Date: 04/06/17 Encounter Start Time: 07:15 -: old records requested/rev Patient seen and examined. No overnight events, pt has afib with RVR - Objective Resuscitation Status: Resuscitation Status FULL:Full Resuscitation MAR Reviewed: Yes Vital Signs & Weight: Vital Signs (12 hours) Temp Pulse Resp BP Pulse Ox 04/06/17 08:00 97.8 F 95 16 04/06/17 07:19 97.8 F 95 16 94 L 04/06/17 06:00 117 H 116/66 04/06/17 04:10 130 H 18 104/64 04/05/17 23:40 97.4 F L 106 H 18 118/79 96 04/05/17 23:03 97.4 F L 106 H 18 96 Weight Weight 231 lb 8 oz Result Diagrams: 04/06/17 04:29 04/06/17 04:29 Radiology Reviewed by me: Yes EKG Reviewed by me: Yes (afib with RVR) Phys Exam - Physical Examination Constitutional: NAD HEENT: PERRLA, moist MMs, sclera anicteric Neck: no JVD, supple reduced air entry Cardiovascular: irregular SM+ Gastrointestinal: soft, non-tender, no distention, positive bowel sounds Musculoskeletal: pulses present, edema present Neurological: non-focal, normal sensation Psychiatric: normal affect, A&O x 3 Skin: no rash, normal turgor Dx/Plan (1) Acute on chronic diastolic (congestive) heart failure Code(s): I50.33 - ACUTE ON CHRONIC DIASTOLIC (CONGESTIVE) HEART FAILURE Status : Acute (2) Demand ischemia Code(s): I24.8 - OTHER FORMS OF ACUTE ISCHEMIC HEART DISEASE Status: Acute (3) Aortic stenosis, severe Code(s): I35.0 - NONRHEUMATIC AORTIC (VALVE) STENOSIS Status: Chronic Comment: (4) Atrial fibrillation Code(s): I48.91 - UNSPECIFIED ATRIAL FIBRILLATION Status: Chronic Qualifiers: Atrial fibrillation type: paroxysmal Qualified Code(s): I48.0 - Paroxysmal atrial fibrillation Comment: with RVR (5) CAD (coronary artery disease) Code(s): I25.10 - ATHSCL HEART DISEASE OF [place] CORONARY ARTERY W/O ANG PCTRS Status: Chronic Comment: (6) CKD (chronic kidney disease), stage III Code(s): N18.3 - CHRONIC KIDNEY DISEASE, STAGE 3 (MODERATE) Status: Chronic Comment: (7) GERD (gastroesophageal reflux disease) Code(s): K21.9 - GASTRO-ESOPHAGEAL REFLUX DISEASE WITHOUT ESOPHAGITIS Status: Chronic Qualifiers: Esophagitis presence: without esophagitis Qualified Code(s): K21.9 - Gastro -esophageal reflux disease without esophagitis (8) H/O cardiac pacemaker Code(s): Z95.0 - PRESENCE OF CARDIAC PACEMAKER Status: Chronic (9) HTN (hypertension) Code(s): I10 - ESSENTIAL (PRIMARY) HYPERTENSION Status: Chronic Qualifiers: Comment: (10) Neuropathy Code(s): G62.9 - POLYNEUROPATHY, UNSPECIFIED Status: Chronic (11) Obesity (BMI 30.0-34.9) Code(s): E66.9 - OBESITY, UNSPECIFIED Status: Chronic (12) Physical deconditioning Code(s): R53.81 - OTHER MALAISE Status: Chronic - Plan cont current plan of care * continue cardizem drip * continue IV lasix * cardiology consulted * home medication reconciled * medication reviewed as below * symptomatic treatment * will monitor closely. Review of Systems - Review of Systems Constitutional: negative: Fever, Chills, Sweats, Weakness, Malaise, Other ENT: negative: Ear Pain, Ear Discharge, Nose Pain, Nose Discharge, Nose Congestion, Mouth Pain, Mouth Swelling, Throat Pain, Throat Swelling, Other Respiratory: Shortness of Breath, SOB with Excertion. negative: Cough, Dry, Hemoptysis, Pleuritic Pain, Sputum, Wheezing Cardiovascular: negative: Chest Pain, Palpitations, Orthopnea, Paroxysmal Noc. Dyspnea, Edema, Light Headedness, Other Gastrointestinal: negative: Nausea, Vomiting, Abdominal Pain, Diarrhea, Constipation, Melena, Hematochezia, Other Genitourinary: negative: Dysuria, Frequency, Incontinence, Hematuria, Retention , Other Musculoskeletal: negative: Neck Pain, Shoulder Pain, Arm Pain, Back Pain, Hand Pain, Leg Pain, Foot Pain, Other Skin: negative: Rash, Lesions, Cesario, Bruising, Other Neurological: negative: Weakness, Numbness, Incoordination, Change in Speech, Confusion, Seizures, Other - Medications/Allergies Allergies/Adverse Reactions: Allergies Allergy/AdvReac Type Severity Reaction Status Date / Time No Known Drug Allergies Allergy Verified 03/28/17 15:21 Medications: Current Medications Acetaminophen (Tylenol) 650 mg PO Q4H PRN PRN Reason: Headache/Fever or Pain Last Admin: 04/06/17 00:24 Dose: 650 mg Hydrocodone Bitart/Acetaminophen ([place] 5/325) 1 tab PO Q4H PRN PRN Reason: Moderate Pain (4-6) Al Hydroxide/Mg Hydroxide (Maalox) 15 ml PO Q4H PRN PRN Reason: Heartburn or Indigestion Artificial Tears (Tears Naturale) 0 drop EA EYE PRN PRN PRN Reason: Dry Eyes Aspirin (Ecotrin) 81 mg PO DAILY [facility] Last Admin: 04/06/17 08:50 Dose: 81 mg Clopidogrel Bisulfate (Plavix) 75 mg PO DAILY [facility] Last Admin: 04/06/17 08:50 Dose: 75 mg Enoxaparin Sodium (Lovenox) 40 mg SC 2100 [facility] Last Admin: 04/06/17 00:27 Dose: 40 mg Famotidine (Pepcid) 20 mg PO BID [facility] Last Admin: 04/06/17 08:50 Dose: 20 mg Furosemide (Lasix) 40 mg SLOW IVP DAILY [facility] Last Admin: 04/06/17 08:50 Dose: 40 mg Gabapentin (Neurontin) 100 mg PO HS [facility] Gabapentin (Neurontin) 300 mg PO TID [facility] Last Admin: 04/06/17 08:50 Dose: 300 mg Guaifenesin (Robitussin Sf) 200 mg PO Q4H PRN PRN Reason: Cough Hydralazine HCl (Apresoline) 10 mg SLOW IVP Q4H PRN PRN Reason: Systolic BP > 180 Diltiazem HCl 125 mg/Miscellaneous Medication 1 each/ Sodium Chloride 125 mls @ 5 mls/hr SLOW IVP INF [facility] PRN Reason: Protocol Last Admin: 04/06/17 04:08 Dose: 125 mls Labetalol HCl (Normodyne) 20 mg SLOW IVP Q4H PRN PRN Reason: Systolic BP > 180 Loperamide HCl (Imodium) 2 mg PO PRN PRN PRN Reason: Diarrhea/Loose Stools Loratadine (Claritin) 10 mg PO DAILYPRN PRN PRN Reason: Sinus Symptoms Magnesium Hydroxide (Milk Of Magnesium) 30 ml PO DAILYPRN PRN PRN Reason: Constipation Mineral Oil/White Petrolatum (Eucerin Cream) 0 gm TOP BIDPRN PRN PRN Reason: Dry Skin Nitroglycerin (Nitrostat) 0.4 mg SL Q5MIN PRN PRN Reason: Chest Pain Nystatin (Mycostatin Powder) 0 gm TOP BID [facility] Last Admin: 04/06/17 09:48 Dose: 1 applic Ondansetron HCl (Zofran) 4 mg IVP Q6H PRN PRN Reason: Nausea/Vomiting Ondansetron HCl (Zofran Odt) 4 mg PO Q6H PRN PRN Reason: Nausea/Vomiting Phenol (Chloraseptic [place] 180 Ml Bot) 0 ml PO PRN PRN PRN Reason: Sore Throat Senna (Senokot) 2 tab PO HSPRN PRN PRN Reason: Constipation Sodium Chloride (Flush - Normal Saline) 10 ml IVF Q12HR [facility] Last Admin: 04/06/17 08:50 Dose: 10 ml Sodium Chloride (Flush - Normal Saline) 10 ml IVF PRN PRN PRN Reason: Saline Flush Sodium Chloride ([place] Nasal [place] 0.65%) 0 ml EA NARE QIDPRN PRN PRN Reason: Nasal Congestion Tramadol HCl (Ultram) 100 mg PO Q6H PRN PRN Reason: Pain Last Admin: 04/06/17 00:24 Dose: 100 mg Zolpidem Tartrate (Ambien) 5 mg PO HSPRN PRN PRN Reason: Insomnia
--- NOTE | 2017-04-06 19:37 | CON ---
DATE OF CONSULTATION: 04/06/2017 REASON FOR CONSULTATION: Atrial fibrillation, previous pacemaker. Patient of Dr. Jack Gilmore. HISTORY OF PRESENT ILLNESS: Mr. Dash is a 76-year-old gentleman who has been in the hospital for a prolong time, mostly concerning infections including abscesses. The patient is noted that he had ir regular heart rhythm and I was consulted. The patient states he has had a long cardiac history underwent bypass surgery here in 2002, three-ves harman bypass. He said few years ago he had a pacemaker inserted by Dr. Jack Gilmore. The patient says he sees Dr. Gilmore every 6 months. He said he had this pacemaker interrogated also. He has been in the hospital on this occasion with infections and requiring prolonged antibiotic infus ions. MEDICATIONS HERE: 1. Pepcid. 2. Enoxaparin. 3. Aspirin. 4. Plavix. 5. Furosemide 40 mg IV daily. 6. Subcutaneous heparin. 7. Labetalol p.r.n. ALLERGIES: He says he is intolerant to Coumadin. He said he lost 40 pounds when he tried to take Co umadin, is the cause severe lack of appetite and weight loss. REVIEW OF SYSTEMS: Constitutional: No significant weight gain or loss now. Vision: No changes. H earing: No changes. Pulmonary: No cough or wheezing. Gastrointestinal: No nausea, vomiting, diar erasmo. Skin: No rashes. Neurologic: No unilateral weakness or numbness. Psychiatric: No unusual depression or anxiety. Hematologic: No unusual bruising. Genitourinary: No burning with urination . PHYSICAL EXAMINATION: GENERAL: This is a pleasant 76-year-old gentleman, he is alert, oriented, and jovial. VITAL SIGNS: Blood pressure 101/78, pulse 90 to 105, it is irregular. EYES: Sclerae nonicteric. Mouth: Mucous membranes moist. NECK: Supple. No lymphadenopathy. LUNGS: Clear anteriorly and laterally. CARDIAC: Irregularly irregular with a 3/6 crescendo-decrescendo murmur heard loudest left upper ster nal border. No diastolic murmur, no S3. ABDOMEN: Obese, nontender. No hepatosplenomegaly. EXTREMITIES: Warm and dry. No clubbing or cyanosis. There is moderate edema. PERTINENT LABORATORY DATA: The creatinine was 1.72, estimated GFR is 39. Troponin 0.080. BNP 1324. Echocardiogram done in 03/24/[address] Lee showed ejection fraction of 50% to 55 % with severe aortic stenosis, the peak gradient of 39 mmHg, the mean gradient 20 mmHg that would cor relate with moderate aortic stenosis, the valve area is calculated at 0.4, but related gradients go m ore than moderate aortic stenosis. EKG reveals atrial fibrillation with controlled ventricular respo nse and intermittent ventricular pacing. ASSESSMENT: 1. Congestive heart failure, diastolic, acute on chronic. 2. Atrial fibrillation, probably chronic. 3. Aortic stenosis. I suspect moderate, although could be moderate to severe. 4. Recurrent infections. PLAN: 1. To have the pacemaker interrogated to see how long has been in fibrillation may need a stronger a nticoagulants. 2. Continue intravenous antibiotics. 3. Add metoprolol to help control heart rate. 4. Continue intravenous diuretics for now.
[2017-04-06] MEDS: Gabapentin 100 MG CAP PO SCH (21:00)
[2017-04-06] MEDS: Metoprolol Tartrate 25 MG TAB PO SCH (21:01)
[2017-04-07] MEDS: traMADol HCl 50 MG TAB PO PRN ×3 (02:01→21:39)
[2017-04-07] MEDS: Diltiazem HCl 125 MG, Admixture Fee 1 EACH in Sodium Chloride 0.9% 100 ML SLOW IVP SCH (04:37)
[2017-04-07 05:29] LABS: #Eosinphils 0.3 thou/uL (0.0-0.7); #Lymphocytes 0.8 thou/uL (1.20-3.40); #Monocytes 0.8 thou/uL (0.11-0.59); #Neutrophils 5.1 thou/uL (1.40-6.50); %Basophils 0.5 % (0.0-1.0); %Eosinophils 4.1 % (0.0-10.0); %Lymphocytes 11.8 % (21.0-51.0); %Monocytes 11.5 % (0.0-10.0); Hematocrit 33.3 % (42.0-52.0); Mean Platelet Volume 8.4 fL (7.4-10.4); Red Blood Cell (RBC) Count 3.43 mill/uL (4.70-6.10)
[2017-04-07 05:52] LABS: Anion Gap 12 mmol/L (10-20); BUN (Urea Nitrogen) 27 mg/dL (8.4-25.7); Calc. Creatinine Clearance 52 mL/min (70-130); Calcium 9.1 mg/dL (7.8-10.44); Carbon Dioxide 32 mmol/L (23-31); Chloride 101 mmol/L (98-107); Estimated GFR-MDRD 39
[2017-04-07] MEDS: Clopidogrel Bisulfate 75 MG TAB PO SCH (08:04)
[2017-04-07] MEDS: Aspirin 81 mg Enteric Coated Tablet PO SCH (08:04)
[2017-04-07] MEDS: Gabapentin 300 MG CAP PO SCH ×3 (08:05→21:39)
[2017-04-07] MEDS: Famotidine 20 MG TAB PO SCH ×2 (08:05→21:39)
[2017-04-07] MEDS: Furosemide 40 MG/4 ML VIAL SLOW IVP SCH (08:05)
[2017-04-07] MEDS: Metoprolol Tartrate 25 MG TAB PO SCH ×2 (08:05→21:39)
[2017-04-07] MEDS: Nystatin Powder 15 GM BOT TOP SCH ×2 (08:06→21:40)
--- NOTE | 2017-04-07 10:17 | PDOC.PN ---
- Subjective Encounter Start Date: 04/07/17 Encounter Start Time: 08:30 pt is doing well, he slept well, he has good diuretic response, no chest pain - Objective Resuscitation Status: Resuscitation Status FULL:Full Resuscitation MAR Reviewed: Yes Vital Signs & Weight: Vital Signs (12 hours) Temp Pulse Resp BP Pulse Ox 04/07/17 08:02 97.7 F 79 18 126/73 93 L 04/07/17 04:00 98.1 F 94 18 129/70 92 L 04/07/17 00:00 98.3 F 88 18 119/61 92 L Weight Weight 227 lb 14.4 oz I&O: 04/06/17 04/07/17 04/08/17 06:59 06:59 06:59 Intake Total 796.5 Balance 796.5 Result Diagrams: 04/07/17 04:37 04/07/17 04:37 EKG Reviewed by me: Yes Phys Exam - Physical Examination Constitutional: NAD HEENT: PERRLA, moist MMs, sclera anicteric Neck: no JVD, supple Respiratory: no wheezing, no rales, no rhonchi Cardiovascular: no significant murmur, irregular Gastrointestinal: soft, non-tender, no distention, positive bowel sounds Musculoskeletal: no edema, pulses present Neurological: non-focal, normal sensation Psychiatric: normal affect, A&O x 3 Skin: no rash, normal turgor Dx/Plan (1) Acute on chronic diastolic (congestive) heart failure Code(s): I50.33 - ACUTE ON CHRONIC DIASTOLIC (CONGESTIVE) HEART FAILURE Status : Acute (2) Demand ischemia Code(s): I24.8 - OTHER FORMS OF ACUTE ISCHEMIC HEART DISEASE Status: Acute (3) Aortic stenosis, severe Code(s): I35.0 - NONRHEUMATIC AORTIC (VALVE) STENOSIS Status: Chronic Comment: (4) Atrial fibrillation Code(s): I48.91 - UNSPECIFIED ATRIAL FIBRILLATION Status: Chronic Qualifiers: Atrial fibrillation type: paroxysmal Qualified Code(s): I48.0 - Paroxysmal atrial fibrillation Comment: with RVR (5) CAD (coronary artery disease) Code(s): I25.10 - ATHSCL HEART DISEASE OF [place] CORONARY ARTERY W/O ANG PCTRS Status: Chronic Comment: (6) CKD (chronic kidney disease), stage III Code(s): N18.3 - CHRONIC KIDNEY DISEASE, STAGE 3 (MODERATE) Status: Chronic Comment: (7) GERD (gastroesophageal reflux disease) Code(s): K21.9 - GASTRO-ESOPHAGEAL REFLUX DISEASE WITHOUT ESOPHAGITIS Status: Chronic Qualifiers: Esophagitis presence: without esophagitis Qualified Code(s): K21.9 - Gastro -esophageal reflux disease without esophagitis (8) H/O cardiac pacemaker Code(s): Z95.0 - PRESENCE OF CARDIAC PACEMAKER Status: Chronic (9) HTN (hypertension) Code(s): I10 - ESSENTIAL (PRIMARY) HYPERTENSION Status: Chronic Qualifiers: Comment: (10) Neuropathy Code(s): G62.9 - POLYNEUROPATHY, UNSPECIFIED Status: Chronic (11) Obesity (BMI 30.0-34.9) Code(s): E66.9 - OBESITY, UNSPECIFIED Status: Chronic (12) Physical deconditioning Code(s): R53.81 - OTHER MALAISE Status: Chronic - Plan cont current plan of care * currently rate controlled with cardizem drip * continue IV lasix * cardiology following * may need pacemaker interrogation * medication reviewed as below * symptomatic treatment. Review of Systems - Review of Systems ENT: negative: Ear Pain, Ear Discharge, Nose Pain, Nose Discharge, Nose Congestion, Mouth Pain, Mouth Swelling, Throat Pain, Throat Swelling, Other Respiratory: Shortness of Breath, SOB with Excertion. negative: Cough, Dry, Hemoptysis, Pleuritic Pain, Sputum, Wheezing Cardiovascular: negative: Chest Pain, Palpitations, Orthopnea, Paroxysmal Noc. Dyspnea, Edema, Light Headedness, Other Gastrointestinal: negative: Nausea, Vomiting, Abdominal Pain, Diarrhea, Constipation, Melena, Hematochezia, Other Genitourinary: negative: Dysuria, Frequency, Incontinence, Hematuria, Retention , Other Musculoskeletal: negative: Neck Pain, Shoulder Pain, Arm Pain, Back Pain, Hand Pain, Leg Pain, Foot Pain, Other Skin: negative: Rash, Lesions, Cesario, Bruising, Other - Medications/Allergies Allergies/Adverse Reactions: Allergies Allergy/AdvReac Type Severity Reaction Status Date / Time No Known Drug Allergies Allergy Verified 03/28/17 15:21 Medications: Current Medications Acetaminophen (Tylenol) 650 mg PO Q4H PRN PRN Reason: Headache/Fever or Pain Last Admin: 04/06/17 00:24 Dose: 650 mg Hydrocodone Bitart/Acetaminophen ([place] 5/325) 1 tab PO Q4H PRN PRN Reason: Moderate Pain (4-6) Al Hydroxide/Mg Hydroxide (Maalox) 15 ml PO Q4H PRN PRN Reason: Heartburn or Indigestion Artificial Tears (Tears Naturale) 0 drop EA EYE PRN PRN PRN Reason: Dry Eyes Aspirin (Ecotrin) 81 mg PO DAILY [facility] Last Admin: 04/07/17 08:04 Dose: 81 mg Clopidogrel Bisulfate (Plavix) 75 mg PO DAILY [facility] 234 [facility]S [facility] Last Admin: 04/07/17 08:04 Dose: 75 mg Enoxaparin Sodium (Lovenox) 40 mg SC 2100 [facility] 234 [facility]S [facility] Last Admin: 04/06/17 21:01 Dose: 40 mg Famotidine (Pepcid) 20 mg PO BID [facility] 234 [facility]S AT [facility] Last Admin: 04/07/17 08:05 Dose: 20 mg Furosemide (Lasix) 40 mg SLOW IVP DAILY [facility] 234 [facility]S AT [facility] Last Admin: 04/07/17 08:05 Dose: 40 mg Gabapentin (Neurontin) 100 mg PO HS [facility] 234 [facility]S AT [facility] Last Admin: 04/06/17 21:00 Dose: 100 mg Gabapentin (Neurontin) 300 mg PO TID [facility] 234 [facility]S AT [facility] Last Admin: 04/07/17 08:05 Dose: 300 mg Guaifenesin (Robitussin Sf) 200 mg PO Q4H PRN PRN Reason: Cough Hydralazine HCl (Apresoline) 10 mg SLOW IVP Q4H PRN PRN Reason: Systolic BP > 180 Diltiazem HCl 125 mg/Miscellaneous Medication 1 each/ Sodium Chloride 125 mls @ 5 mls/hr SLOW IVP INF [facility] 234 [facility]S AT [facility] PRN Reason: Protocol Last Admin: 04/07/17 04:37 Dose: 125 mls Labetalol HCl (Normodyne) 20 mg SLOW IVP Q4H PRN PRN Reason: Systolic BP > 180 Loperamide HCl (Imodium) 2 mg PO PRN PRN PRN Reason: Diarrhea/Loose Stools Loratadine (Claritin) 10 mg PO DAILYPRN PRN PRN Reason: Sinus Symptoms Magnesium Hydroxide (Milk Of Magnesium) 30 ml PO DAILYPRN PRN PRN Reason: Constipation Metoprolol Tartrate (Lopressor) 12.5 mg PO BID [facility] 234 [facility]S AT [facility] Last Admin: 04/07/17 08:05 Dose: 12.5 mg Mineral Oil/White Petrolatum (Eucerin Cream) 0 gm TOP BIDPRN PRN PRN Reason: Dry Skin Nitroglycerin (Nitrostat) 0.4 mg SL Q5MIN PRN PRN Reason: Chest Pain Nystatin (Mycostatin Powder) 0 gm TOP BID [facility] Last Admin: 04/07/17 08:06 Dose: 1 applic Ondansetron HCl (Zofran) 4 mg IVP Q6H PRN PRN Reason: Nausea/Vomiting Ondansetron HCl (Zofran Odt) 4 mg PO Q6H PRN PRN Reason: Nausea/Vomiting Phenol (Chloraseptic [place] 180 Ml Bot) 0 ml PO PRN PRN PRN Reason: Sore Throat Senna (Senokot) 2 tab PO HSPRN PRN PRN Reason: Constipation Sodium Chloride (Flush - Normal Saline) 10 ml IVF Q12HR [facility] 234 B[facility]S AT [facility] Last Admin: 04/07/17 08:13 Dose: 10 ml Sodium Chloride (Flush - Normal Saline) 10 ml IVF PRN PRN PRN Reason: Saline Flush Sodium Chloride ([place] Nasal [place] 0.65%) 0 ml EA NARE QIDPRN PRN PRN Reason: Nasal Congestion Tramadol HCl (Ultram) 100 mg PO Q6H PRN PRN Reason: Pain Last Admin: 04/07/17 02:01 Dose: 100 mg Zolpidem Tartrate (Ambien) 5 mg PO HSPRN PRN PRN Reason: Insomnia
--- NOTE | 2017-04-07 13:11 | PRG ---
DATE OF SERVICE: 04/07/2017 SUBJECTIVE: Mr. Dash is resting comfortably, no complaints. PHYSICAL EXAMINATION: VITAL SIGNS: Blood pressure 126/73, pulse is 80 and it is irregular. LUNGS: Clear. CARDIAC: Irregular, irregular. ABDOMEN: Soft, nontender. EXTREMITIES: No edema. ASSESSMENT: 1. Aortic stenosis. 2. Atrial fibrillation. Pacemaker was interrogated. He has been in atrial fibrillation now for sev eral days. 3. Infection, being treated. 4. Previous pacemaker, functioning normally. PLAN: 1. Change from intravenous diltiazem to oral diltiazem. 2. Increased beta arnold. 3. We will need to anticoagulate. For now, we will increase Lovenox and stop Plavix.
[2017-04-07] MEDS: Enoxaparin Sodium 60 MG/0.6 ML SYRINGE SC SCH (21:38)
[2017-04-07] MEDS: Gabapentin 100 MG CAP PO SCH (21:39)
[2017-04-08] MEDS: Metoprolol Tartrate 25 MG TAB PO SCH ×2 (10:19→20:47)
[2017-04-08] MEDS: Aspirin 81 mg Enteric Coated Tablet PO SCH (10:20)
[2017-04-08] MEDS: Famotidine 20 MG TAB PO SCH ×2 (10:20→20:47)
[2017-04-08] MEDS: Gabapentin 300 MG CAP PO SCH ×3 (10:20→20:47)
[2017-04-08] MEDS: Enoxaparin Sodium 60 MG/0.6 ML SYRINGE SC SCH ×2 (10:21→20:46)
[2017-04-08] MEDS: Furosemide 40 MG/4 ML VIAL SLOW IVP SCH (10:22)
[2017-04-08] MEDS: Nystatin Powder 15 GM BOT TOP SCH ×2 (10:25→20:47)
--- NOTE | 2017-04-08 12:27 | PDOC.PN ---
- Subjective Encounter Start Date: 04/08/17 Encounter Start Time: 07:15 pt is weak, denies shortness of breath, rate is controlled - Objective Resuscitation Status: Resuscitation Status FULL:Full Resuscitation MAR Reviewed: Yes Vital Signs & Weight: Vital Signs (12 hours) Temp Pulse Resp BP Pulse Ox 04/08/17 10:20 80 04/08/17 08:25 97.7 F 80 20 138/85 92 L 04/08/17 04:00 97.3 F L 80 20 120/62 92 L Weight Weight 227 lb 14.4 oz I&O: 04/07/17 04/08/17 04/09/17 06:59 06:59 06:59 Intake Total 796.5 490 Balance 796.5 490 Result Diagrams: 04/07/17 04:37 04/07/17 04:37 EKG Reviewed by me: Yes Phys Exam - Physical Examination Constitutional: NAD HEENT: PERRLA, moist MMs, sclera anicteric Neck: no JVD, supple Respiratory: no wheezing, no rales, no rhonchi Cardiovascular: irregular SM+ Gastrointestinal: soft, non-tender, no distention, positive bowel sounds Musculoskeletal: no edema, pulses present Neurological: non-focal, normal sensation Lymphatic: no nodes Psychiatric: normal affect Skin: no rash, normal turgor Dx/Plan (1) Acute on chronic diastolic (congestive) heart failure Code(s): I50.33 - ACUTE ON CHRONIC DIASTOLIC (CONGESTIVE) HEART FAILURE Status : Acute (2) Demand ischemia Code(s): I24.8 - OTHER FORMS OF ACUTE ISCHEMIC HEART DISEASE Status: Acute (3) Aortic stenosis, severe Code(s): I35.0 - NONRHEUMATIC AORTIC (VALVE) STENOSIS Status: Chronic Comment: (4) Atrial fibrillation Code(s): I48.91 - UNSPECIFIED ATRIAL FIBRILLATION Status: Chronic Qualifiers: Atrial fibrillation type: paroxysmal Qualified Code(s): I48.0 - Paroxysmal atrial fibrillation Comment: with RVR (5) CAD (coronary artery disease) Code(s): I25.10 - ATHSCL HEART DISEASE OF [place] CORONARY ARTERY W/O ANG PCTRS Status: Chronic Comment: (6) CKD (chronic kidney disease), stage III Code(s): N18.3 - CHRONIC KIDNEY DISEASE, STAGE 3 (MODERATE) Status: Chronic Comment: (7) GERD (gastroesophageal reflux disease) Code(s): K21.9 - GASTRO-ESOPHAGEAL REFLUX DISEASE WITHOUT ESOPHAGITIS Status: Chronic Qualifiers: Esophagitis presence: without esophagitis Qualified Code(s): K21.9 - Gastro -esophageal reflux disease without esophagitis (8) H/O cardiac pacemaker Code(s): Z95.0 - PRESENCE OF CARDIAC PACEMAKER Status: Chronic (9) HTN (hypertension) Code(s): I10 - ESSENTIAL (PRIMARY) HYPERTENSION Status: Chronic Qualifiers: Comment: (10) Neuropathy Code(s): G62.9 - POLYNEUROPATHY, UNSPECIFIED Status: Chronic (11) Obesity (BMI 30.0-34.9) Code(s): E66.9 - OBESITY, UNSPECIFIED Status: Chronic (12) Physical deconditioning Code(s): R53.81 - OTHER MALAISE Status: Chronic - Plan cont current plan of care, PT/OT * continue lovenox * on discharge will consider elliquis * continue IV lasix * start PT/OT * may need placement if continue to be very weak * medication reviewed as below * symptomatic treatment. Review of Systems - Review of Systems ENT: negative: Ear Pain, Ear Discharge, Nose Pain, Nose Discharge, Nose Congestion, Mouth Pain, Mouth Swelling, Throat Pain, Throat Swelling, Other Respiratory: negative: Cough, Dry, Shortness of Breath, Hemoptysis, SOB with Excertion, Pleuritic Pain, Sputum, Wheezing Cardiovascular: negative: Chest Pain, Palpitations, Orthopnea, Paroxysmal Noc. Dyspnea, Edema, Light Headedness, Other Gastrointestinal: negative: Nausea, Vomiting, Abdominal Pain, Diarrhea, Constipation, Melena, Hematochezia, Other Genitourinary: negative: Dysuria, Frequency, Incontinence, Hematuria, Retention , Other Musculoskeletal: negative: Neck Pain, Shoulder Pain, Arm Pain, Back Pain, Hand Pain, Leg Pain, Foot Pain, Other Skin: negative: Rash, Lesions, Cesario, Bruising, Other - Medications/Allergies Allergies/Adverse Reactions: Allergies Allergy/AdvReac Type Severity Reaction Status Date / Time No Known Drug Allergies Allergy Verified 03/28/17 15:21 Medications: Current Medications Acetaminophen (Tylenol) 650 mg PO Q4H PRN PRN Reason: Headache/Fever or Pain Last Admin: 04/06/17 00:24 Dose: 650 mg Hydrocodone Bitart/Acetaminophen ([place] 5/325) 1 tab PO Q4H PRN PRN Reason: Moderate Pain (4-6) Al Hydroxide/Mg Hydroxide (Maalox) 15 ml PO Q4H PRN PRN Reason: Heartburn or Indigestion Artificial Tears (Tears Naturale) 0 drop EA EYE PRN PRN PRN Reason: Dry Eyes Aspirin (Ecotrin) 81 mg PO DAILY [facility] Last Admin: 04/08/17 10:20 Dose: 81 mg Diltiazem HCl (Cardizem Cd) 120 mg PO DAILY [facility] Last Admin: 04/08/17 10:20 Dose: 120 mg Enoxaparin Sodium (Lovenox) 60 mg SC 0900,2100 [facility] Last Admin: 04/08/17 10:21 Dose: 60 mg Famotidine (Pepcid) 20 mg PO BID [facility] Last Admin: 04/08/17 10:20 Dose: 20 mg Furosemide (Lasix) 40 mg SLOW IVP DAILY [facility] Last Admin: 04/08/17 10:22 Dose: 40 mg Gabapentin (Neurontin) 100 mg PO HS [facility] Last Admin: 04/07/17 21:39 Dose: 100 mg Gabapentin (Neurontin) 300 mg PO TID [facility] Last Admin: 04/08/17 10:20 Dose: 300 mg Guaifenesin (Robitussin Sf) 200 mg PO Q4H PRN PRN Reason: Cough Hydralazine HCl (Apresoline) 10 mg SLOW IVP Q4H PRN PRN Reason: Systolic BP > 180 Labetalol HCl (Normodyne) 20 mg SLOW IVP Q4H PRN PRN Reason: Systolic BP > 180 Loperamide HCl (Imodium) 2 mg PO PRN PRN PRN Reason: Diarrhea/Loose Stools Loratadine (Claritin) 10 mg PO DAILYPRN PRN PRN Reason: Sinus Symptoms Magnesium Hydroxide (Milk Of Magnesium) 30 ml PO DAILYPRN PRN PRN Reason: Constipation Metoprolol Tartrate (Lopressor) 25 mg PO BID [facility] Last Admin: 04/08/17 10:19 Dose: 25 mg Mineral Oil/White Petrolatum (Eucerin Cream) 0 gm TOP BIDPRN PRN PRN Reason: Dry Skin Nitroglycerin (Nitrostat) 0.4 mg SL Q5MIN PRN PRN Reason: Chest Pain Nystatin (Mycostatin Powder) 0 gm TOP BID [facility] Last Admin: 04/08/17 10:25 Dose: Not Given Ondansetron HCl (Zofran) 4 mg IVP Q6H PRN PRN Reason: Nausea/Vomiting Ondansetron HCl (Zofran Odt) 4 mg PO Q6H PRN PRN Reason: Nausea/Vomiting Phenol (Chloraseptic [place] 180 Ml Bot) 0 ml PO PRN PRN PRN Reason: Sore Throat Senna (Senokot) 2 tab PO HSPRN PRN PRN Reason: Constipation Sodium Chloride (Flush - Normal Saline) 10 ml IVF Q12HR [facility] Last Admin: 04/07/17 21:40 Dose: 10 ml Sodium Chloride (Flush - Normal Saline) 10 ml IVF PRN PRN PRN Reason: Saline Flush Sodium Chloride ([place] Nasal [place] 0.65%) 0 ml EA NARE QIDPRN PRN PRN Reason: Nasal Congestion Tramadol HCl (Ultram) 100 mg PO Q6H PRN PRN Reason: Pain Last Admin: 04/07/17 21:39 Dose: 100 mg Zolpidem Tartrate (Ambien) 5 mg PO HSPRN PRN PRN Reason: Insomnia
--- NOTE | 2017-04-08 13:28 | PRG ---
DATE OF SERVICE: 04/08/2017 SUBJECTIVE: Mr. Dash said that he was short of breath this morning. He received some scheduled [place] six and felt better. No chest pain. OBJECTIVE: VITAL SIGNS: Blood pressure 138/89, pulse 90, it is irregular. LUNGS: Clear. CARDIAC: Irregularly irregular. ASSESSMENT: 1. Paroxysmal atrial fibrillation. 2. Ventricular paced rhythm currently. 3. Tachycardia, bradycardia at times. Check chest x-ray tomorrow. 4. Continue IV Lasix.
[2017-04-08] MEDS: Gabapentin 100 MG CAP PO SCH (20:47)
--- NOTE | 2017-04-09 08:46 | RAD ---
UPRIGHT PORTABLE CHEST 1 VIEW: HISTORY: A 76-year-old male with followup congestive heart failure, tachycardia. COMPARISON: 04/05/17. FINDINGS: Right PICC line. Postop midline sternotomy. Left ICD. Minimal cardiomegaly with some mild bilatera l vascular congestion. No confluent pneumonia, overt edema, or pleural effusion. Stable from prior study. IMPRESSION: Borderline cardiomegaly with mild vascular congestion. Stable from prior exam. No significant new p rocess. POS: RENEA
[2017-04-09] MEDS: Gabapentin 300 MG CAP PO SCH ×3 (09:32→20:45)
[2017-04-09] MEDS: Aspirin 81 mg Enteric Coated Tablet PO SCH (09:33)
[2017-04-09] MEDS: Furosemide 40 MG/4 ML VIAL SLOW IVP SCH (09:33)
[2017-04-09] MEDS: Enoxaparin Sodium 60 MG/0.6 ML SYRINGE SC SCH (09:33)
[2017-04-09] MEDS: Metoprolol Tartrate 25 MG TAB PO SCH (09:33)
[2017-04-09] MEDS: Famotidine 20 MG TAB PO SCH ×2 (09:33→20:45)
[2017-04-09] MEDS: Nystatin Powder 15 GM BOT TOP SCH ×3 (09:38→20:45)
--- NOTE | 2017-04-09 11:54 | PDOC.PN ---
- Subjective Encounter Start Date: 04/09/17 Encounter Start Time: 07:30 Patient seen and examined. No new complaints. No overnight events - Objective Resuscitation Status: Resuscitation Status FULL:Full Resuscitation MAR Reviewed: Yes Vital Signs & Weight: Vital Signs (12 hours) Temp Pulse Resp BP Pulse Ox 04/09/17 09:33 85 04/09/17 08:05 98.9 F 85 20 141/88 H 97 04/09/17 04:00 98.6 F 76 16 124/79 92 L Weight Weight 220 lb 12.8 oz I&O: 04/08/17 04/09/17 04/10/17 06:59 06:59 06:59 Intake Total 490 130 Balance 490 130 Result Diagrams: 04/07/17 04:37 04/07/17 04:37 Radiology Reviewed by me: Yes (chest xray) EKG Reviewed by me: Yes (afib) Phys Exam - Physical Examination Constitutional: NAD HEENT: PERRLA, moist MMs, sclera anicteric Neck: no JVD, supple Respiratory: no wheezing, no rales, no rhonchi Cardiovascular: no significant murmur, irregular Gastrointestinal: soft, non-tender, no distention, positive bowel sounds Musculoskeletal: no edema, pulses present Neurological: non-focal, normal sensation, moves all 4 limbs Lymphatic: no nodes Psychiatric: normal affect, A&O x 3 Skin: no rash, normal turgor Dx/Plan (1) Acute on chronic diastolic (congestive) heart failure Code(s): I50.33 - ACUTE ON CHRONIC DIASTOLIC (CONGESTIVE) HEART FAILURE Status : Acute (2) Demand ischemia Code(s): I24.8 - OTHER FORMS OF ACUTE ISCHEMIC HEART DISEASE Status: Acute (3) Aortic stenosis, severe Code(s): I35.0 - NONRHEUMATIC AORTIC (VALVE) STENOSIS Status: Chronic Comment: (4) Atrial fibrillation Code(s): I48.91 - UNSPECIFIED ATRIAL FIBRILLATION Status: Chronic Qualifiers: Atrial fibrillation type: paroxysmal Qualified Code(s): I48.0 - Paroxysmal atrial fibrillation Comment: with RVR (5) CAD (coronary artery disease) Code(s): I25.10 - ATHSCL HEART DISEASE OF [place] CORONARY ARTERY W/O ANG PCTRS Status: Chronic Comment: (6) CKD (chronic kidney disease), stage III Code(s): N18.3 - CHRONIC KIDNEY DISEASE, STAGE 3 (MODERATE) Status: Chronic Comment: (7) GERD (gastroesophageal reflux disease) Code(s): K21.9 - GASTRO-ESOPHAGEAL REFLUX DISEASE WITHOUT ESOPHAGITIS Status: Chronic Qualifiers: Esophagitis presence: without esophagitis Qualified Code(s): K21.9 - Gastro -esophageal reflux disease without esophagitis (8) H/O cardiac pacemaker Code(s): Z95.0 - PRESENCE OF CARDIAC PACEMAKER Status: Chronic (9) HTN (hypertension) Code(s): I10 - ESSENTIAL (PRIMARY) HYPERTENSION Status: Chronic Qualifiers: Comment: (10) Neuropathy Code(s): G62.9 - POLYNEUROPATHY, UNSPECIFIED Status: Chronic (11) Obesity (BMI 30.0-34.9) Code(s): E66.9 - OBESITY, UNSPECIFIED Status: Chronic (12) Physical deconditioning Code(s): R53.81 - OTHER MALAISE Status: Chronic - Plan cont current plan of care * change lasix to PO * DC Lovenox and start Elliquis * discussed with Dr Gaytan * needs more PT/OT * if he agrees, he needs SNU placement but this morning he did not like that option * medication reviewed as below * symptomatic treatment. Review of Systems - Review of Systems ENT: negative: Ear Pain, Ear Discharge, Nose Pain, Nose Discharge, Nose Congestion, Mouth Pain, Mouth Swelling, Throat Pain, Throat Swelling, Other Respiratory: negative: Cough, Dry, Shortness of Breath, Hemoptysis, SOB with Excertion, Pleuritic Pain, Sputum, Wheezing Cardiovascular: negative: Chest Pain, Palpitations, Orthopnea, Paroxysmal Noc. Dyspnea, Edema, Light Headedness, Other Gastrointestinal: negative: Nausea, Vomiting, Abdominal Pain, Diarrhea, Constipation, Melena, Hematochezia, Other Genitourinary: negative: Dysuria, Frequency, Incontinence, Hematuria, Retention , Other Musculoskeletal: negative: Neck Pain, Shoulder Pain, Arm Pain, Back Pain, Hand Pain, Leg Pain, Foot Pain, Other Skin: negative: Rash, Lesions, Cesario, Bruising, Other - Medications/Allergies Allergies/Adverse Reactions: Allergies Allergy/AdvReac Type Severity Reaction Status Date / Time No Known Drug Allergies Allergy Verified 03/28/17 15:21 Medications: Current Medications Acetaminophen (Tylenol) 650 mg PO Q4H PRN PRN Reason: Headache/Fever or Pain Last Admin: 04/06/17 00:24 Dose: 650 mg Hydrocodone Bitart/Acetaminophen ([place] 5/325) 1 tab PO Q4H PRN PRN Reason: Moderate Pain (4-6) Al Hydroxide/Mg Hydroxide (Maalox) 15 ml PO Q4H PRN PRN Reason: Heartburn or Indigestion Apixaban (Eliquis) 5 mg PO BID [facility] Artificial Tears (Tears Naturale) 0 drop EA EYE PRN PRN PRN Reason: Dry Eyes Aspirin (Ecotrin) 81 mg PO DAILY [facility] Last Admin: 04/09/17 09:33 Dose: 81 mg Diltiazem HCl (Cardizem Cd) 120 mg PO DAILY [facility] Last Admin: 04/09/17 09:33 Dose: 120 mg Famotidine (Pepcid) 20 mg PO BID [facility] Last Admin: 04/09/17 09:33 Dose: 20 mg Furosemide (Lasix) 40 mg PO [facility]ILY[facility] Gabapentin (Neurontin) [address] [facility] Last Admin: 04/08/17 20:47 Dose: 100 mg Gabapentin (Neurontin) 300 mg PO TID [facility] Last Admin: 04/09/17 09:32 Dose: 300 mg Guaifenesin (Robitussin Sf) 200 mg PO Q4H PRN PRN Reason: Cough Hydralazine HCl (Apresoline) 10 mg SLOW IVP Q4H PRN PRN Reason: Systolic BP > 180 Labetalol HCl (Normodyne) 20 mg SLOW IVP Q4H PRN PRN Reason: Systolic BP > 180 Loperamide HCl (Imodium) 2 mg PO PRN PRN PRN Reason: Diarrhea/Loose Stools Loratadine (Claritin) 10 mg PO DAILYPRN PRN PRN Reason: Sinus Symptoms Magnesium Hydroxide (Milk Of Magnesium) 30 ml PO DAILYPRN PRN PRN Reason: Constipation Metoprolol Tartrate (Lopressor) 25 mg PO BID [facility] Last Admin: 04/09/17 09:33 Dose: 25 mg Mineral Oil/White Petrolatum (Eucerin Cream) 0 gm TOP BIDPRN PRN PRN Reason: Dry Skin Nitroglycerin (Nitrostat) 0.4 mg SL Q5MIN PRN PRN Reason: Chest Pain Nystatin (Mycostatin Powder) 0 gm TOP BID [facility] Last Admin: 04/09/17 09:38 Dose: Not Given Ondansetron HCl (Zofran) 4 mg IVP Q6H PRN PRN Reason: Nausea/Vomiting Ondansetron HCl (Zofran Odt) 4 mg PO Q6H PRN PRN Reason: Nausea/Vomiting Phenol (Chloraseptic [place] 180 Ml Bot) 0 ml PO PRN PRN PRN Reason: Sore Throat Senna (Senokot) 2 tab PO HSPRN PRN PRN Reason: Constipation Sodium Chloride (Flush - Normal Saline) 10 ml IVF Q12HR [facility] Last Admin: 04/08/17 20:47 Dose: 10 ml Sodium Chloride (Flush - Normal Saline) 10 ml IVF PRN PRN PRN Reason: Saline Flush Sodium Chloride ([place] Nasal [place] 0.65%) 0 ml EA NARE QIDPRN PRN PRN Reason: Nasal Congestion Tramadol HCl (Ultram) 100 mg PO Q6H PRN PRN Reason: Pain Last Admin: 04/07/17 21:39 Dose: 100 mg Zolpidem Tartrate (Ambien) 5 mg PO HSPRN PRN PRN Reason: Insomnia
--- NOTE | 2017-04-09 17:51 | PRG ---
DATEOF SERVICE: 04/09/2017 SUBJECTIVE: Mr. Dash is doing better today, no complaints. He is not short of breath. OBJECTIVE: VITAL SIGNS: Blood pressure 142/73. Pulse is in the 80s, atrial fib with occasional paced rhythm. LUNGS: Clear. CARDIAC: Soft murmur. ASSESSMENT: 1. Aortic stenosis, moderate to severe. 2. Diastolic heart failure. 3. Coronary artery disease. 4. Recent infection. PLAN: 1. He is on metoprolol 50 mg a day. 2. Diltiazem 120 mg a day long-acting. 3. Eliquis. 4. Aspirin. 5. Follow up with Dr. Gilmore, eventually may need transcutaneous aortic valve replacement.
[2017-04-09] MEDS: Apixaban 5 MG TAB PO SCH (20:44)
[2017-04-09] MEDS: Gabapentin 100 MG CAP PO SCH (20:45)
[2017-04-09] MEDS: traMADol HCl 50 MG TAB PO PRN (23:17)
[2017-04-10 05:28] LABS: Hematocrit 33.6 % (42.0-52.0)
[2017-04-10 06:24] VITALS: BMI 31.7
[2017-04-10] MEDS ORDERED: Furosemide 40 MG TAB PO SCH (07:30)
[2017-04-10] MEDS: Apixaban 5 MG TAB PO SCH (08:03)
[2017-04-10] MEDS: Famotidine 20 MG TAB PO SCH (08:03)
[2017-04-10] MEDS: Gabapentin 300 MG CAP PO SCH ×2 (08:03→14:38)
[2017-04-10] MEDS: Aspirin 81 mg Enteric Coated Tablet PO SCH (08:03)
[2017-04-10] MEDS: Nystatin Powder 15 GM BOT TOP SCH (08:04)
[2017-04-10] MEDS: traMADol HCl 50 MG TAB PO PRN (08:13)
--- NOTE | 2017-04-10 10:57 | PDOC.PN ---
- Subjective Encounter Start Date: 04/10/17 Encounter Start Time: 07:20 pt does not want to go to rehab, he wants to go home , his daughter can not come today Patient seen and examined. No new complaints. No overnight events - Objective Resuscitation Status: Resuscitation Status FULL:Full Resuscitation MAR Reviewed: Yes Vital Signs & Weight: Vital Signs (12 hours) Temp Pulse Resp BP BP Pulse Ox 04/10/17 08:05 98.2 F 99 18 134/80 96 04/10/17 08:00 98.2 F 99 18 134/80 04/10/17 04:00 98.5 F 82 16 125/59 L 94 L Weight Weight 221 lb I&O: 04/09/17 04/10/17 04/11/17 06:59 06:59 06:59 Intake Total 130 240 240 Balance 130 240 240 Result Diagrams: 04/10/17 04:26 04/10/17 04:26 EKG Reviewed by me: Yes (afib) Phys Exam - Physical Examination Constitutional: NAD HEENT: PERRLA, moist MMs, sclera anicteric Neck: no JVD, supple Respiratory: no wheezing, no rales, no rhonchi Cardiovascular: irregular SM+ Gastrointestinal: soft, non-tender, no distention, positive bowel sounds Musculoskeletal: no edema, pulses present Neurological: non-focal, normal sensation Lymphatic: no nodes Psychiatric: normal affect, A&O x 3 Skin: no rash, normal turgor Dx/Plan (1) Acute on chronic diastolic (congestive) heart failure Code(s): I50.33 - ACUTE ON CHRONIC DIASTOLIC (CONGESTIVE) HEART FAILURE Status : Acute (2) Demand ischemia Code(s): I24.8 - OTHER FORMS OF ACUTE ISCHEMIC HEART DISEASE Status: Acute (3) Aortic stenosis, severe Code(s): I35.0 - NONRHEUMATIC AORTIC (VALVE) STENOSIS Status: Chronic Comment: (4) Atrial fibrillation Code(s): I48.91 - UNSPECIFIED ATRIAL FIBRILLATION Status: Chronic Qualifiers: Atrial fibrillation type: paroxysmal Qualified Code(s): I48.0 - Paroxysmal atrial fibrillation Comment: with RVR (5) CAD (coronary artery disease) Code(s): I25.10 - ATHSCL HEART DISEASE OF [place] CORONARY ARTERY W/O ANG PCTRS Status: Chronic Comment: (6) CKD (chronic kidney disease), stage III Code(s): N18.3 - CHRONIC KIDNEY DISEASE, STAGE 3 (MODERATE) Status: Chronic Comment: (7) GERD (gastroesophageal reflux disease) Code(s): K21.9 - GASTRO-ESOPHAGEAL REFLUX DISEASE WITHOUT ESOPHAGITIS Status: Chronic Qualifiers: Esophagitis presence: without esophagitis Qualified Code(s): K21.9 - Gastro -esophageal reflux disease without esophagitis (8) H/O cardiac pacemaker Code(s): Z95.0 - PRESENCE OF CARDIAC PACEMAKER Status: Chronic (9) HTN (hypertension) Code(s): I10 - ESSENTIAL (PRIMARY) HYPERTENSION Status: Chronic Qualifiers: Comment: (10) Neuropathy Code(s): G62.9 - POLYNEUROPATHY, UNSPECIFIED Status: Chronic (11) Obesity (BMI 30.0-34.9) Code(s): E66.9 - OBESITY, UNSPECIFIED Status: Chronic (12) Physical deconditioning Code(s): R53.81 - OTHER MALAISE Status: Chronic - Plan cont current plan of care, plan discussed w/ family * medication reviewed as below * symptomatic treatment * continue PT * pt is wheelchair bound, doubt any more improvement with rehab * possible discharge tomorrow. Review of Systems - Review of Systems ENT: negative: Ear Pain, Ear Discharge, Nose Pain, Nose Discharge, Nose Congestion, Mouth Pain, Mouth Swelling, Throat Pain, Throat Swelling, Other Respiratory: negative: Cough, Dry, Shortness of Breath, Hemoptysis, SOB with Excertion, Pleuritic Pain, Sputum, Wheezing Cardiovascular: negative: Chest Pain, Palpitations, Orthopnea, Paroxysmal Noc. Dyspnea, Edema, Light Headedness, Other Gastrointestinal: negative: Nausea, Vomiting, Abdominal Pain, Diarrhea, Constipation, Melena, Hematochezia, Other Genitourinary: negative: Dysuria, Frequency, Incontinence, Hematuria, Retention , Other Musculoskeletal: negative: Neck Pain, Shoulder Pain, Arm Pain, Back Pain, Hand Pain, Leg Pain, Foot Pain, Other - Medications/Allergies Allergies/Adverse Reactions: Allergies Allergy/AdvReac Type Severity Reaction Status Date / Time No Known Drug Allergies Allergy Verified 03/28/17 15:21 Medications: Current Medications Acetaminophen (Tylenol) 650 mg PO Q4H PRN PRN Reason: Headache/Fever or Pain Last Admin: 04/06/17 00:24 Dose: 650 mg Hydrocodone Bitart/Acetaminophen ([place] 5/325) 1 tab PO Q4H PRN PRN Reason: Moderate Pain (4-6) Al Hydroxide/Mg Hydroxide (Maalox) 15 ml PO Q4H PRN PRN Reason: Heartburn or Indigestion Apixaban (Eliquis) [address] [facility] Last Admin: 04/10/17 08:03 Dose: 5 mg Artificial Tears (Tears Naturale) 0 drop EA EYE PRN PRN PRN Reason: Dry Eyes Aspirin (Ecotrin) [address] [facility] Last Admin: 04/10/17 08:03 Dose: 81 mg Diltiazem HCl (Cardizem Cd) [address] [facility] Last Admin: 04/10/17 08:00 Dose: 120 mg Famotidine (Pepcid) [address] [facility] Last Admin: 04/10/17 08:03 Dose: 20 mg Furosemide (Lasix) 40 mg PO DAILY-[facility] Last Admin: 04/10/17 08:03 Dose: 40 mg Gabapentin (Neurontin) [address] [facility] Last Admin: 04/09/17 20:45 Dose: 100 mg Gabapentin (Neurontin) [address] [facility] Last Admin: 04/10/17 08:03 Dose: 300 mg Guaifenesin (Robitussin Sf) 200 mg PO Q4H PRN PRN Reason: Cough Hydralazine HCl (Apresoline) 10 mg SLOW IVP Q4H PRN PRN Reason: Systolic BP > 180 Labetalol HCl (Normodyne) 20 mg SLOW IVP Q4H PRN PRN Reason: Systolic BP > 180 Loperamide HCl (Imodium) 2 mg PO PRN PRN PRN Reason: Diarrhea/Loose Stools Loratadine (Claritin) 10 mg PO DAILYPRN PRN PRN Reason: Sinus Symptoms Magnesium Hydroxide (Milk Of Magnesium) 30 ml PO DAILYPRN PRN PRN Reason: Constipation Metoprolol Succinate (Toprol Xl) [address] [facility] Last Admin: 04/10/17 08:03 Dose: 50 mg Mineral Oil/White Petrolatum (Eucerin Cream) 0 gm TOP BIDPRN PRN PRN Reason: Dry Skin Nitroglycerin (Nitrostat) 0.4 mg SL Q5MIN PRN PRN Reason: Chest Pain Nystatin (Mycostatin Powder) 0 gm TOP BID [facility] Last Admin: 04/10/17 08:04 Dose: 1 applic Ondansetron HCl (Zofran) 4 mg IVP Q6H PRN PRN Reason: Nausea/Vomiting Ondansetron HCl (Zofran Odt) 4 mg PO Q6H PRN PRN Reason: Nausea/Vomiting Phenol (Chloraseptic [place] 180 Ml Bot) 0 ml PO PRN PRN PRN Reason: Sore Throat Senna (Senokot) 2 tab PO HSPRN PRN PRN Reason: Constipation Sodium Chloride (Flush - Normal Saline) 10 ml IVF Q12HR [facility] Last Admin: 04/10/17 08:03 Dose: 10 ml Sodium Chloride (Flush - Normal Saline) 10 ml IVF PRN PRN PRN Reason: Saline Flush Sodium Chloride ([place] Nasal [place] 0.65%) 0 ml EA NARE QIDPRN PRN PRN Reason: Nasal Congestion Tramadol HCl (Ultram) 100 mg PO Q6H PRN PRN Reason: Pain Last Admin: 04/10/17 08:13 Dose: 100 mg Zolpidem Tartrate (Ambien) 5 mg PO HSPRN PRN PRN Reason: Insomnia
[2017-04-10 13:37] VITALS: TEMP 97.8
[2017-04-10 13:43] VITALS: BP 131/74
--- NOTE | 2017-04-10 14:26 | DIS ---
DATE OF ADMISSION: 04/05/2017 DATE OF DISCHARGE: 04/10/2017 PRIMARY CARE PHYSICIAN: Dr. Jennifer Haskins. DISCHARGE DISPOSITION: Home with family support. PRIMARY DISCHARGE DIAGNOSES: 1. Acute on chronic diastolic congestive heart failure. 2. Demand ischemia. SECONDARY DISCHARGE DIAGNOSES: Chronic physical deconditioning, obesity with BMI of 31, peripheral n europathy, hypertension, cardiac pacemaker, gastroesophageal reflux disease, chronic kidney disease s tage 3, coronary artery disease, chronic atrial fibrillation, severe aortic stenosis. PRIMARY PROCEDURE/OPERATION: None. RADIOLOGICAL INVESTIGATION: CT angio showed pulmonary vascular congestion, no evidence of PE, bilate ral pleural effusion. Repeat chest x-ray showed cardiomegaly with pulmonary vascular congestion. SIGNIFICANT LABORATORY DATA: WBC 7.0, hemoglobin 10.9, platelet 230. D-dimer 0.58. Sodium 141, pot assium 3.9, BUN 27, creatinine 1.47, glucose 84, calcium 9.1, AST 15, ALT less than 7, alkaline phosp hatase 54, troponin 0.084, albumin 3.5. TSH 2.46. BNP 1324. DISCHARGE MEDICATIONS: Eliquis 5 mg p.o. b.i.d., aspirin 81 mg p.o. daily, Plavix 75 mg p.o. daily, Cardizem-CD 120 mg p.o. daily, Pepcid 20 mg p.o. b.i.d., Lasix 40 mg p.o. daily, gabapentin 300 mg p. o. t.i.d. and 100 mg p.o. at bedtime, [place] 5 one tablet q.6 hourly p.r.n., Lopressor 25 mg p.o. b.i. d., potassium chloride 20 mEq p.o. daily, tramadol 100 mg q.6 hourly p.r.n. CONTRAINDICATIONS: None. CODE STATUS: FULL CODE. INPATIENT CONSULTANTS: Dr. Gaytan was following while in hospital. TEST RESULTS PENDING ON DISCHARGE: None. ALLERGIES: No known drug allergy. DISCHARGE PLAN: Post hospital, the patient will follow up with primary care physician. Patient will make appointment with primary used car salesperson. HOSPITAL COURSE: A 76-year-old male with the above mentioned medical problem, who was admitted by Dr Rahul Howard. Please see his H&P for further details. The patient was having increasing shortness of breath. Patient was having bilateral lower extremity edema as well as orthopnea. He also had weight gain. In the emergency room, he also had atrial fibrillation with RVR. This patient was admitted t o telemetry floor. His BNP was elevated. His CT angio showed pulmonary vascular congestion. He has underlying history of severe aortic stenosis and diastolic heart failure. We admitted and treated a s for diastolic heart failure exacerbation with Lasix with significant clinical improvement for atria l fibrillation. During this admission, Dr. Gaytan recommended to start anticoagulation therapy with Eliquis. While in hospital, he was given Lovenox. On discharge, we changed to Eliquis therapy. He will continue his aspirin and Plavix as well. We spoke with Cardiology and they recommended above-me ntioned medication and they cleared him for discharge. This patient will need a transaortic catheter ization and aortic valve replacement. He has to follow with primary used car salesperson and primary care ph ysician. This patient has significant physical deconditioning, but this is not a new. He is wheelchair bound a nd he was not interested in going to a skilled or rehab placement, rather he decided to go home with family support. I spoke with the patient's daughter, who may come today and pick her up and plan of care discussed with her in detail. The patient is seen and examined at bedside today. Please see my progress note from today for furthe r details. Discharge medication reconciliation done. His new medication prescriptions sent to his p amanda. At this point, per patient request, we are sending him to home. Total time spent on discharge day 31 minutes.
== END 2017-04-10 14:54 | disposition home or self-care (01) | DRG 291 ==
LOC: ERS 17:11 → ERHOLD 21:00 → 2SW 23:29 → 2NO 04-06 13:56
PROVIDERS: ADMIT Internal Medicine; ATTEND Internal Medicine
DX: I13.0 Hypertensive heart and chronic kidney disease with heart failure and stage 1 through stage 4 chronic kidney disease, or unspecified chronic kidney disease (principal); I50.33 Acute on chronic diastolic (congestive) heart failure; N17.9 Acute kidney failure, unspecified; I24.8 Other forms of acute ischemic heart disease; G62.9 Polyneuropathy, unspecified; I48.0 Paroxysmal atrial fibrillation; I35.0 Nonrheumatic aortic (valve) stenosis; E78.5 Hyperlipidemia, unspecified; E66.9 Obesity, unspecified; K21.9 Gastro-esophageal reflux disease without esophagitis; R00.0 Tachycardia, unspecified; N18.3 Chronic kidney disease, stage 3 (moderate); I25.10 Atherosclerotic heart disease of native coronary artery without angina pectoris; Z86.73 Personal history of transient ischemic attack (TIA), and cerebral infarction without residual deficits; Z95.0 Presence of cardiac pacemaker; Z95.1 Presence of aortocoronary bypass graft; Z68.31 Body mass index [BMI] 31.0-31.9, adult; Z79.01 Long term (current) use of anticoagulants; Z99.3 Dependence on wheelchair; Z87.891 Personal history of nicotine dependence
CPT/HCPCS: 36415; 71010; 71275; 80048; 80053; 82565; 83880; 84443; 84484; 85014; 85018; 85025; 85049; 85379; 93005; 93798; 96374; A4216; G8978-GP-CL; G8979-GP-CJ; G8987-GO-CL; G8988-GO-CJ; J1650; J1940; J7050

== ENCOUNTER 2017-05-23 16:47 | Inpatient (IN) | payer MEDICARE ==
[2017-05-23] MEDS ORDERED: Mag-Al 1200 mg/1200 mg/30 ML UDCUP PO PRN (20:03)
[2017-05-23] MEDS ORDERED: Guaifenesin DM 100-10/5 ML UDCUP PO PRN (20:03)
[2017-05-23] MEDS ORDERED: Vancomycin HCl 1 GM in Premix Bag 1 BAG IVPB SCH (21:00)
[2017-05-23 21:20] VITALS: BMI 31.1
[2017-05-23] MEDS ORDERED: VANCOMYCIN IVPB PRN (21:37)
[2017-05-23] MEDS: Docusate 100 MG CAP PO SCH (22:01)
[2017-05-23] MEDS: Famotidine 20 MG TAB PO SCH (22:01)
[2017-05-23] MEDS: Gabapentin 300 MG CAP PO SCH (22:01)
[2017-05-23] MEDS: Piperacillin/Tazobactam 3.375 GM in Sodium Chloride 0.9% 100 ML IVPB SCH (22:01)
[2017-05-23] MEDS: Metoprolol Tartrate 25 MG TAB PO SCH (22:01)
[2017-05-23] MEDS: Sodium Chloride 0.9% 1,000 ML IV SCH (22:02)
[2017-05-23] MEDS: Vancomycin HCl 1.5 GM in Sodium Chloride 0.9% 250 ML 300 ML IVPB SCH (22:29)
--- NOTE | 2017-05-24 01:04 | HP ---
REASON FOR ADMISSION: Infected sacral decubitus. HISTORY OF PRESENT ILLNESS: The patient gives history of noticing his bottom being wet from last 3 to 4 days. He also says that he has been wheelchair bound from last 3 years due to severe neuropathy in his legs. He does mention that when he was brought from [facility] in an ambulance from [place], his bottom was rubbing against the bed all through his ride until he reached home. This was around 12 days back when he got discharged from [facility] after having had a TAVR there. He was discharged on the 11 of May. He does not have any pain or burning sensation in the bottom. PAST MEDICAL AND SURGICAL HISTORY: History of CABG for 3 vessels done in 2002, pacemaker, recent TAVR done on the 11 of May at [facility], hernia repair, left knee replacement, prostatectomy, TURP, lumbar spine surgery in 2010, dyslipidemia, hypertension, history of CVA with no residual. CURRENT MEDICATIONS: Per med reconciliation from [facility] on the , the patient is on aspirin 81 mg p.o. daily, Cardizem CD 120 mg daily, Toprol XL 50 mg daily, Plavix 75 mg daily, Pepcid 20 mg twice daily, Lasix 20 mg daily, gabapentin 300 mg 3 times daily, potassium chloride 10 mEq p.o. daily, Ultram 50 mg q.8 hourly p.r.n. ALLERGIES: He is not allergic to any medications. PERSONAL HISTORY: Quit smoking in 1966, does not abuse alcohol or drugs. The patient lives alone, but his [id number] lives next door and helps him. FAMILY HISTORY: Mother at the age of 86, father at the age of 81, both had history of coronary artery disease. REVIEW OF SYSTEMS: The following complete review of systems was negative, unless otherwise mentioned in the HPI or below: Constitutional: Weight loss or gain, ability to conduct usual activities. Skin: Rash, itching. Eyes: Double vision, pain. ENT/Mouth: Nose bleeding, neck stiffness, pain, tenderness. Cardiovascular: Palpitations, dyspnea on exertion, orthopnea. Respiratory: Shortness of breath, wheezing, cough, hemoptysis, fever or night sweats. Gastrointestinal: Poor appetite, abdominal pain, heartburn, nausea, vomiting, constipation, or diarrhea. Genitourinary: Urgency, frequency, dysuria, nocturia. Musculoskeletal: Pain, swelling. Neurologic/Psychiatric: Anxiety, depression. Allergy/Immunologic: Skin rash, bleeding tendency. PHYSICAL EXAMINATION: GENERAL: The patient is a 77-year-old male, who is currently not in any acute distress. VITAL SIGNS: Blood pressure 138/56, pulse 80 per minute, respiratory rate 24 per minute, temperature 99.4 degrees Fahrenheit, saturating 95% on 2 L nasal cannula. NECK: Supple, no elevated JVD. HEENT: Eyes: Extraocular muscles intact. Pupils are reacting to light. Oral cavity: Mucous membranes are dry. No exudates or congestion. CARDIOVASCULAR: S1, S2 heard. Regular rhythm. RESPIRATORY: Air entry 1+ bilateral. No rales or rhonchi. ABDOMEN: Soft, bowel sounds heard. No tenderness, rigidity or guarding. EXTREMITIES: There is peripheral edema in both lower extremities. The patient has what appears to be a stage 4 sacral decubitus which is fairly large. The picture is available on [employer]. There is purulent material seen on the floor of the ulcer. VASCULAR SYSTEM: Peripheral pulses 1+ bilateral. No ischemic ulcerations or gangrene. CENTRAL NERVOUS SYSTEM: No gross focal deficits seen. The patient is a bit hard of hearing, otherwise is oriented well. PSYCHIATRIC: The patient's mood is euthymic. No hallucinations or delusions. LABORATORY AND X-RAY FINDINGS: White count of 12, H&H 11 and 37, platelet count is 248 with 84% neutrophils, MCV is 90. Electrolytes stable. BUN 12, creatinine 1.0, glucose 76. CLINICAL IMPRESSION AND PLAN: The patient will be admitted to medical/surgical floor for sacral decubitus for debridement. He will be on vancomycin and Zosyn. Wound cultures from the sacral decubitus will be obtained shortly. He is currently having fever with chills and most likely septic from this. We will obtain pelvic CAT scan to see if he has developed osteomyelitis. Blood cultures have been obtained at [facility] per ER physician. We will continue his aspirin, Cardizem CD, Neurontin as before, we will switch his Lopressor to 25 mg twice daily and hold his Plavix for now. He will be kept n.p.o. after midnight. I have discussed these findings with Dr. James who likely will debride his ulcer in the morning. The patient most likely will require a wound VAC. Also, the patient stays in the wheelchair for the most part at home. He likely will need swing bed for 2 to 3 weeks to off load pressure and help in healing. Case management consultation will be requested for the same. CODE STATUS: DNR. I have discussed this with the patient. Power of Software Sales Consultant is his [id number], her name is Michelle Dash. MTDDesiree
[2017-05-24] MEDS: Piperacillin/Tazobactam 3.375 GM in Sodium Chloride 0.9% 100 ML IVPB SCH ×4 (02:20→20:14)
--- NOTE | 2017-05-24 05:05 | CON ---
DATE OF CONSULTATION: 05/23/2017 CONSULTING PHYSICIAN: Sabrina Alexandra M.D. HISTORY OF PRESENT ILLNESS: This is a 77-year-old gentleman, who presented to [facility] after being found to have an unstageable pressure ulcer. Per the patient, he underwen t heart valve surgery approximately two weeks ago in [place]. The patient is wheelchair bound at [facility]. Three days ago, he noticed staining of his bed sheets. He was evaluated in [facility] and found to have a pressure ulcer for which he was transferred to our hospital for further ca re. Our service is being consulted for management of the ulcer. The patient denies any fevers or ch ills. He rates his pain as 0/10. History obtained mostly from the patient, who was somewhat drowsy after receiving pain medications. He is somewhat poor historian, so additional history was obtained from his medical records. PAST MEDICAL HISTORY: None. ALLERGIES: None. HOME MEDICAIONS: Include Eliquis 5 mg p.o. b.i.d., Plavix 75 mg p.o. daily, Pepcid 20 mg p.o. b.i.d. , Lasix 40 mg p.o. daily, Neurontin 100 mg p.o. nightly, potassium 10 mEq p.o. daily, Ultram 100 mg q .6 hours p.r.n., aspirin 81 mg p.o. daily, diltiazem 120 mg p.o. daily and metoprolol 25 mg p.o. b.i. d. PAST MEDICAL HISTORY: Significant for CHF, CAD, hypertension, hyperlipidemia, history of CVA and PAULINO D, as well as valvular heart disease, status post valve surgery and neuropathy, neuropathy resulting in limited mobility. PAST SURGICAL HISTORY: Significant for coronary artery bypass, pacemaker placement, heart valve repa ir, and bilateral knee surgeries. SOCIAL HISTORY: The patient states he lives at home alone. He is wheelchair bound at baseline. He is a former smoker, but denies any alcohol, illicit drug or current tobacco use. REVIEW OF SYSTEMS: Review of systems was negative except as indicated in the HPI. FAMILY HISTORY: The patient denies family history of any current medical illnesses at this time. PHYSICAL EXAMINATION: VITAL SIGNS: Temperature 100.1, pulse 87, respirations 16, O2 sat 95% on 2 L nasal cannula, blood pr essure 128/62. GENERAL: Well developed elderly appearing male, in no acute distress, resting in bed. PULMONARY: Normal work of breathing. Symmetric rise. CARDIOVASCULAR: Soft 2/6 systolic murmur. GASTROINTESTINAL: Abdomen is soft, nontender, nondistended. MUSCULOSKELETAL: There is a large sacral wound approximately 6 x 5 cm, currently covered with Mepile x. LABORATORY FINDINGS: WBC 12.9, hemoglobin 11.7, hematocrit 37.5, and platelet count 248. Sodium 138 , potassium 3.7, chloride 100, carbon dioxide 28, BUN 12, creatinine 1.00, glucose 76. ASSESSMENT AND PLAN: Case was discussed with Dr. James. Plan is for operative intervention to press ure ulcer. Because the patient has been on Eliquis, it is unsure which medication he takes or when. We will check coags in the morning. The patient should be n.p.o. after midnight. Further assessmen t and plan per Dr. James in the a.m. after coags return.
[2017-05-24] MEDS: Sodium Chloride 0.9% 1,000 ML IV SCH ×2 (06:09→20:16)
[2017-05-24] MEDS: Metoprolol Tartrate 25 MG TAB PO SCH ×2 (06:10→20:16)
[2017-05-24 06:14] LABS: INR-International Normal Ratio 1.1; Prothrombin Time 14.4 SEC (12.0-14.7)
[2017-05-24 06:32] LABS: #Eosinphils 0.2 thou/uL (0.0-0.7); #Monocytes 1.1 thou/uL (0.11-0.59); #Neutrophils 10.6 thou/uL (1.40-6.50); %Basophils 0.1 % (0.0-1.0); %Eosinophils 1.2 % (0.0-10.0); %Lymphocytes 7.5 % (21.0-51.0); %Monocytes 8.2 % (0.0-10.0); Mean Corpuscular HGB CONC 31.4 g/dL (32.0-36.0); Mean Corpuscular Hemoglobin 30.3 pg (27.0-31.0); Mean Corpuscular Volume 96.4 fl (80.0-94.0); Mean Platelet Volume 7.6 fL (7.4-10.4); Platelet Count 237 thou/uL (130-400); RBC Distribution Width 13.2 % (11.5-14.5); Red Blood Cell (RBC) Count 3.64 mill/uL (4.70-6.10); White Blood Cell (WBC) Count 12.8 thou/uL (4.8-10.8)
[2017-05-24 06:37] LABS: ALT (SGPT) Less than 7 U/L (8-55); AST (SGOT) 11 U/L (5-34); Albumin 3.1 g/dL (3.4-4.8); Alkaline Phosphatase 59 U/L (40-150); Anion Gap 11 mmol/L (10-20); BUN (Urea Nitrogen) 10 mg/dL (8.4-25.7); Bilirubin, Total 0.8 mg/dL (0.2-1.2); Calc. Creatinine Clearance 73 mL/min (70-130); Calcium 9.2 mg/dL (7.8-10.44); Carbon Dioxide 30 mmol/L (23-31); Chloride 103 mmol/L (98-107); Estimated GFR-MDRD 62; Globulin 3.2 g/dL (2.4-3.5); Glucose 99 mg/dL (83-110); Potassium 4.2 mmol/L (3.5-5.1); Protein, Total 6.3 g/dL (5.8-8.1); Sodium 140 mmol/L (136-145)
[2017-05-24] MEDS ORDERED: Propofol 200 MG/20 ML VIAL ONE (09:12)
[2017-05-24] MEDS ORDERED: Glycopyrrolate 0.2 MG/ML 5 ML SYRINGE ONE (09:12)
[2017-05-24] MEDS ORDERED: Morphine 2 MG/ML SYRINGE SLOW IVP SCH (09:45)
[2017-05-24] MEDS: Enoxaparin Sodium 40 MG/0.4 ML SYRINGE SC SCH (09:59)
[2017-05-24] MEDS: Famotidine 20 MG TAB PO SCH ×2 (09:59→20:15)
[2017-05-24] MEDS: Gabapentin 300 MG CAP PO SCH ×3 (09:59→20:15)
[2017-05-24] MEDS: Aspirin 81 mg Enteric Coated Tablet PO SCH (09:59)
[2017-05-24] MEDS: Docusate 100 MG CAP PO SCH ×2 (09:59→20:15)
[2017-05-24] MEDS: Vancomycin HCl 1.5 GM in Sodium Chloride 0.9% 250 ML 300 ML IVPB SCH ×2 (10:37→22:28)
[2017-05-24] MEDS ORDERED: Fentanyl 100 MCG/2 ML VIAL ONE (14:13)
[2017-05-24] MEDS ORDERED: Ketamine 50 MG/ML VIAL ONE (14:13)
[2017-05-24] MEDS ORDERED: Midazolam HCl 2 mg/2 ml Vial ONE (14:13)
[2017-05-24] MEDS ORDERED: Ondansetron HCl/PF 4 MG/2 ML Vial IVP PRN (15:30)
[2017-05-24] MEDS ORDERED: Promethazine HCl 25 MG/ML VIAL IM PRN (15:30)
[2017-05-24] MEDS ORDERED: Promethazine HCl 25 MG/ML VIAL SLOW IVP PRN (15:30)
--- NOTE | 2017-05-24 16:54 | PDOC.PN ---
- Subjective Encounter Start Date: 05/24/17 Encounter Start Time: 16:52 Mr. Dash was seen today in follow-up of decubitus ulcer. He does not have any complaints. He denies any pain, denies shortness of breath nausea ect. - Objective Resuscitation Status: Resuscitation Status DNR:Do Not Resuscitate MAR Reviewed: Yes Vital Signs & Weight: Vital Signs (12 hours) Temp Pulse Resp BP Pulse Ox 05/24/17 12:09 98.7 F 80 16 121/65 92 L 05/24/17 09:59 84 05/24/17 08:47 97.9 F 84 16 96/55 L 95 05/24/17 04:59 98.9 F 107 H 20 120/76 93 L Weight Admit Weight 217 lb Weight 217 lb I&O: 05/23/17 05/24/17 05/25/17 06:59 06:59 06:59 Intake Total 1100 Balance 1100 Result Diagrams: 05/24/17 05:23 05/24/17 05:23 Additional Labs: Accuchecks 05/24/17 06:19 POC Glucose 87 Phys Exam - Physical Examination HEENT: PERRLA Respiratory: no wheezing, no rales, no rhonchi, clear to auscultation bilateral Cardiovascular: RRR, no significant murmur, no rub Gastrointestinal: soft, non-tender, positive bowel sounds Musculoskeletal: no edema Dx/Plan (1) Decubitus ulcer of sacral region, unstageable Code(s): L89.150 - PRESSURE ULCER OF SACRAL REGION, UNSTAGEABLE Status: Acute (2) S/P TAVR (transcatheter aortic valve replacement) Code(s): Z95.2 - PRESENCE OF PROSTHETIC HEART VALVE Status: Acute (3) Aortic stenosis, severe Code(s): I35.0 - NONRHEUMATIC AORTIC (VALVE) STENOSIS Status: Chronic Comment: (4) HTN (hypertension) Code(s): I10 - ESSENTIAL (PRIMARY) HYPERTENSION Status: Chronic Qualifiers: Comment: (5) Obesity (BMI 30.0-34.9) Code(s): E66.9 - OBESITY, UNSPECIFIED Status: Chronic - Plan * Scaral decubitus- patient has undergone wound debridement * Continue Vancomycin and Zosyn * HTN- blood pressure is low normal. * Symptom relief * DVT and GI prophylaxis
--- NOTE | 2017-05-24 19:58 | OP ---
DATE OF PROCEDURE: 05/24/2017 PREOPERATIVE DIAGNOSIS: Sacral decubitus ulcer. POSTOPERATIVE DIAGNOSIS: 10 x 8 x 5 cm stage III sacral decubitus ulcer. OPERATIONS PERFORMED: Excisional debridement of a 10 x 8 x 5 cm sacral decubitus ulcer and placement of wound VAC. SURGEON: Dr. Trevon James. ANESTHESIA: General endotracheal. ESTIMATED BLOOD LOSS: 25 mL. FLUIDS GIVEN: 100 mL crystalloids. SPONGE AND INSTRUMENT COUNT: Certified as correct x2. COMPLICATIONS: None apparent at the time of operation. INDICATIONS FOR PROCEDURE: This is a 77-year-old man who is wheelchair bound, functional quadriplegi c who developed sacral decubitus ulcer with foul smelling, requiring debridement. The patient was br ought to the operating room for excisional debridement. FINDINGS: Consistent with stage III, 10 x 8 x 5 cm sacral decubitus ulcer. DESCRIPTION OF PROCEDURE: Informed consent obtained from the patient who was brought to the operatin g room and placed in supine position. Following general anesthesia, the patient was placed in the prone position. The buttocks were widely prepped and draped in the usual fashion. The 10 x 8 cm sacral decubitus ulcer was elliptically excised down to necrotic base. This was accomp lished using scalpel. Hemostasis was achieved using cautery. Necrotic subcutaneous and muscular tissues were sharply debrided using Granados scissors. Again, hemostasis was achieved using cautery. The wound cavity was copiously irrigated with saline solution. Wound VAC sponge was then embedded in the wound cavity. The external wound VAC dressing was drawn over the buttock and connecting this to vacuum assisted dev ice with good suction. The patient tolerated the operation without any apparent complication and was returned to recovery room in satisfactory condition.
--- NOTE | 2017-05-24 23:24 | PRG ---
DATE OF SERVICE: 05/24/2017 SUBJECTIVE: The patient is postop day 0, status post sacral wound debridement and wound VAC placemen t. Patient has no complaints this evening. OBJECTIVE: VITAL SIGNS: Reviewed and stable. Patient is afebrile, resting in bed in no acute distress. Breath ing is nonlabored. ABDOMEN: Wound VAC is in place with scant serosanguineous drainage. ASSESSMENT: Sacral decubitus, status post debridement. Continue care as ordered. Wound care as ord ered. Continue to monitor.
[2017-05-25] MEDS: Sodium Chloride 0.9% 1,000 ML IV SCH ×3 (02:38→22:31)
[2017-05-25] MEDS: Piperacillin/Tazobactam 3.375 GM in Sodium Chloride 0.9% 100 ML IVPB SCH ×4 (02:42→22:04)
[2017-05-25] MEDS: Aspirin 81 mg Enteric Coated Tablet PO SCH (08:44)
[2017-05-25] MEDS: Docusate 100 MG CAP PO SCH ×2 (08:44→21:57)
[2017-05-25] MEDS: Metoprolol Tartrate 25 MG TAB PO SCH ×2 (08:45→21:54)
[2017-05-25] MEDS: Gabapentin 300 MG CAP PO SCH ×3 (08:45→21:53)
[2017-05-25] MEDS: Famotidine 20 MG TAB PO SCH ×2 (08:45→21:54)
[2017-05-25] MEDS: Enoxaparin Sodium 40 MG/0.4 ML SYRINGE SC SCH (08:45)
[2017-05-25 09:42] LABS: Vancomycin, Trough 29.3 ug/mL
[2017-05-25] MEDS ORDERED: hydrALAZINE 25 MG TAB PO PRN (11:25)
[2017-05-25] MEDS ORDERED: cloNIDine 0.1 MG TAB PO PRN (11:25)
--- NOTE | 2017-05-25 11:27 | PDOC.PN ---
- Subjective Encounter Start Date: 05/25/17 Encounter Start Time: 11:26 Mr. Dash was seen todayin follow-up of decubitus ulcer. He says he feels fine today. He wants to sit up on the side of the bed. He denies any pain in his buttocks. He denies chest pain or shortness of breath. - Objective Resuscitation Status: Resuscitation Status DNR:Do Not Resuscitate MAR Reviewed: Yes Vital Signs & Weight: Vital Signs (12 hours) Temp Pulse Resp BP BP BP Pulse Ox 05/25/17 08:56 98.2 F 95 12 189/76 H 95 05/25/17 08:44 78 189/76 H 05/25/17 04:00 98.2 F 82 16 139/69 94 L 05/25/17 01:04 98.0 F 90 93 H 119/93 H 93 L Weight Admit Weight 217 lb Weight 217 lb I&O: 05/24/17 05/25/17 05/26/17 06:59 06:59 06:59 Intake Total 1100 1540 Output Total 1 Balance 1100 1539 Result Diagrams: 05/24/17 05:23 05/24/17 05:23 Phys Exam - Physical Examination HEENT: PERRLA Respiratory: no wheezing, no rales, no rhonchi, clear to auscultation bilateral Cardiovascular: RRR, no significant murmur Gastrointestinal: soft, non-tender, positive bowel sounds Musculoskeletal: no edema Dx/Plan (1) Decubitus ulcer of sacral region, unstageable Code(s): L89.150 - PRESSURE ULCER OF SACRAL REGION, UNSTAGEABLE Status: Acute (2) S/P TAVR (transcatheter aortic valve replacement) Code(s): Z95.2 - PRESENCE OF PROSTHETIC HEART VALVE Status: Acute (3) Aortic stenosis, severe Code(s): I35.0 - NONRHEUMATIC AORTIC (VALVE) STENOSIS Status: Chronic Comment: (4) HTN (hypertension) Code(s): I10 - ESSENTIAL (PRIMARY) HYPERTENSION Status: Chronic Qualifiers: Comment: (5) Obesity (BMI 30.0-34.9) Code(s): E66.9 - OBESITY, UNSPECIFIED Status: Chronic (6) Atrial fibrillation Code(s): I48.91 - UNSPECIFIED ATRIAL FIBRILLATION Status: Chronic Qualifiers: Atrial fibrillation type: paroxysmal Qualified Code(s): I48.0 - Paroxysmal atrial fibrillation Comment: with RVR - Plan * Sacral decubitus, stage 3- he is s/p debridement, and wound vac is in place * Cultures from the area are growing 3 separate gram negative rods- awaiting further identification * Continue Zosyn and Vancomycin * HTN- blood pressure has been labile- will add PRN medication * History of recent TAVR- clinically stable. * Patient had been on nursing home anticoagulation with Eliquis- due to history of chronic AFIB- re-start this when OK with General Surgery- His heart rate has been stable
--- NOTE | 2017-05-25 17:20 | PRG ---
DATE OF SERVICE: 05/25/2017 SUBJECTIVE: Mr. Dash is awake and alert. He denies any pain. He is postoperative day #1, status post excisional debridement of sacral decubitus ulcer. OBJECTIVE: GENERAL: He has remained stable. VITAL SIGNS: This includes blood pressure of 150/80, respiratory rate 12, heart rate 75. Maximum temperature over the last 24 hours is 97.7 degrees Fahrenheit. Oxygen saturation is 97% on room air. HEART: Reveals regular rate and rhythm. No murmurs or gallops auscultated. LUNGS: Clear to auscultation bilaterally. Breathing is regular and unlabored. ABDOMEN: Soft, nontender and nondistended. Wound VAC remains in place at the sacral wound. Minimum drainage is present. The patient has recorded two bowel movements since yesterday. IMPRESSION: Postoperative day #1, status post excisional debridement of sacral decubitus ulcer. The patient is hemodynamically stable. PLAN: Continue with local wound care in anticipation of discharge with outpatient wound VAC therapy. DOMINIQUE
[2017-05-25 21:24] LABS: Vancomycin, Random 21.8 ug/mL (See Comment)
[2017-05-25] MEDS: Acetaminophen 325 MG TAB PO PRN (21:54)
[2017-05-25] MEDS ORDERED: Vancomycin HCl 1 GM in Premix Bag 1 BAG IVPB SCH (22:00)
--- NOTE | 2017-05-25 23:21 | PRG ---
DATE OF SERVICE: 05/25/2017 SUBJECTIVE: This is a patient who is a 77-year-old gentleman postop day #1 status post sacral wound debridement and wound VAC placement. The patient has no complaints this evening. He said he worked with physical therapy earlier today. OBJECTIVE: Vital signs reviewed and stable. The patient is resting in bed in no acute distress. Breathing is n onlabored. Wound VAC is in place. There is minimal serosanguineous drainage in the wound VAC. ASSESSMENT AND PLAN: As documented in daily progress note. Continue care as ordered. Continue to m onitor. The wound VAC changed per wound care team. Of note, patient is from home and will either ne ed to have home VAC arranged or may need placement such as inpatient rehabilitation or skilled nursin g given recent surgery.
[2017-05-26] MEDS: Piperacillin/Tazobactam 3.375 GM in Sodium Chloride 0.9% 100 ML IVPB SCH ×4 (04:21→20:22)
[2017-05-26] MEDS ORDERED: HYDROcodone/Acetaminophen 10/325 mg Tablet PO PRN (09:24)
[2017-05-26] MEDS ORDERED: HYDROcodone/Acetaminophen 5/325 mg Tablet PO PRN (09:24)
[2017-05-26] MEDS: Metoprolol Tartrate 25 MG TAB PO SCH ×2 (09:32→20:22)
[2017-05-26] MEDS: Docusate 100 MG CAP PO SCH ×2 (09:32→20:22)
[2017-05-26] MEDS: Enoxaparin Sodium 40 MG/0.4 ML SYRINGE SC SCH (09:32)
[2017-05-26] MEDS: Famotidine 20 MG TAB PO SCH ×2 (09:32→20:21)
[2017-05-26] MEDS: Gabapentin 300 MG CAP PO SCH ×3 (09:32→20:21)
[2017-05-26] MEDS: Aspirin 81 mg Enteric Coated Tablet PO SCH (09:32)
[2017-05-26] MEDS: Vancomycin HCl 1.25 GM in Sodium Chloride 0.9% 250 ML 250 ML IVPB SCH (09:33)
--- NOTE | 2017-05-26 15:28 | PQF ---
CLINICAL DOCUMENTATION IMPROVEMENT CLARIFICATION FORM: ICD-10 Updated PLEASE DO AN ADDENDUM TO THE PROGRESS NOTE WITH ANY DOCUMENTATION UPDATES OR ADDITIONS AND CARRY THROUGH TO DC SUMMARY. THANK YOU. Date: 05/28/17 ATTN: DR. TIWARI Please exercise your independent, professional judgment in responding to the clarification form. Clinical indicators are provided on the bottom of this form for your review Please check appropriate box(s): [ ] Protein Calorie Malnutrition: [X ] Mild [ ] Moderate [ ] Severe [ ] Other Malnutrition (please specify) __ [ ] Underweight without malnutrition [ ] Cachexia [ ] Other diagnosis [ ] Unable to determine In addition, please specify: Present on Admission (POA): [X ] Yes [ ] No [ ] Unable to determine CLINICAL INDICATORS - SIGNS / SYMPTOMS / LABS DIETARY NOTE 05/24: "KCAL AND PROTEIN NEEDS NOT MET" "METABOLIC DEMANDS OF WOUND HEALING EVIDENCED BY DECUB TO SACRAL AREA WITH DEBRIDEMENT TODAY, INCREASED ESTIMATED CALORIE AND PROTEIN NEEDS." ALBUMIN 3.1 RISKS: POOR WOUND HEALING PATIENT IS FUNCTIONAL QUADRIPLEGIA TREATMENT: DIETARY CONSULT NUTRITIONAL SUPPLEMENTS RECOMMENDED PER DIETARY (This form is maintained as a part of the permanent medical record) 2014 [employer]. All Rights Reserved [email or web address] Office: [phone] [facility]
--- NOTE | 2017-05-26 15:40 | PDOC.PN ---
- Subjective Encounter Start Date: 05/26/17 Encounter Start Time: 15:38 Mr. Dash was seen today in follow-up. He does not have any complaints. He does no complain of sacral pain. - Objective Resuscitation Status: Resuscitation Status DNR:Do Not Resuscitate MAR Reviewed: Yes Vital Signs & Weight: Vital Signs (12 hours) Temp Pulse Resp BP Pulse Ox 05/26/17 11:29 98 F 80 16 182/78 H 94 L 05/26/17 08:40 98 F 80 16 05/26/17 07:45 98 F 80 16 169/76 H 93 L 05/26/17 04:25 98.0 F 85 18 148/76 H 97 Weight Admit Weight 217 lb Weight 217 lb I&O: 05/25/17 05/26/17 05/27/17 06:59 06:59 06:59 Intake Total 1540 2100 Output Total 1 Balance 1539 2100 Result Diagrams: 05/24/17 05:23 05/24/17 05:23 Phys Exam - Physical Examination HEENT: PERRLA Respiratory: no wheezing, no rales, clear to auscultation bilateral Cardiovascular: RRR, no significant murmur Gastrointestinal: soft, non-tender, positive bowel sounds Musculoskeletal: no edema Dx/Plan (1) Decubitus ulcer of sacral region, unstageable Code(s): L89.150 - PRESSURE ULCER OF SACRAL REGION, UNSTAGEABLE Status: Acute (2) S/P TAVR (transcatheter aortic valve replacement) Code(s): Z95.2 - PRESENCE OF PROSTHETIC HEART VALVE Status: Acute (3) Aortic stenosis, severe Code(s): I35.0 - NONRHEUMATIC AORTIC (VALVE) STENOSIS Status: Chronic Comment: (4) HTN (hypertension) Code(s): I10 - ESSENTIAL (PRIMARY) HYPERTENSION Status: Chronic Qualifiers: Comment: (5) Obesity (BMI 30.0-34.9) Code(s): E66.9 - OBESITY, UNSPECIFIED Status: Chronic (6) Atrial fibrillation Code(s): I48.91 - UNSPECIFIED ATRIAL FIBRILLATION Status: Chronic Qualifiers: Atrial fibrillation type: paroxysmal Qualified Code(s): I48.0 - Paroxysmal atrial fibrillation Comment: with RVR - Plan * Sacral decubitus, stage 3- wound vac was changed today. * Wound culture is growing 4 gram negative rods, and staph spp. Still awaiting further identification * Will continue the current antibiotics * HTN- blood pressure is still trending high- will continue to monitor, and adjust medications in a day or two if the trend continues * Plan is for patient to go to swing bed in [place] at discharge
[2017-05-26] MEDS: Sodium Chloride 0.9% 1,000 ML IV SCH (20:23)
--- NOTE | 2017-05-26 20:56 | PRG ---
DATE OF SERVICE: 05/26/2017 SUBJECTIVE: The patient is postop day #2 from excisional debridement of the sacral decubitus ulcer. Overnight, he has had no issues. This morning, he is tolerating a diet. His pain is controlled. Magdi huff is awaiting wound care to change his wound VAC. PHYSICAL EXAMINATION: VITAL SIGNS: Temperature is 98.0, heart rate 80, blood pressure 169/76. GENERAL: The patient is awake this morning, states he has no complaints. He is tolerating a diet. HEENT: Unremarkable. LUNGS: Clear to auscultation bilaterally. HEART: Regular rate and rhythm. ABDOMEN: Soft, flat, nontender with active bowel sounds. Wound VAC is in place and appears to be fu nctioning. ASSESSMENT AND PLAN: Status post excisional debridement of sacral decubitus ulcer. Plan will be to continue wound care. Arrange for outpatient wound VAC or placement where wound care can continue.
[2017-05-27] MEDS: Ondansetron HCl/PF 4 MG/2 ML Vial SLOW IVP PRN ×2 (00:38→09:50)
--- NOTE | 2017-05-27 02:12 | PRG ---
DATE OF SERVICE: 05/26/2017 SUBJECTIVE: Danilo Dash is a 77-year-old male status post debridement of sacral wound. The patien t vocalized no complaint this evening. He has gram-negative rods and staphylococcus in his wound cul ture. He is on vancomycin and Zosyn. The patient had wound VAC change today. Otherwise, he is doin g well. He vocalized no complaint upon my evaluation. OBJECTIVE: VITAL SIGNS: Reviewed. The patient is hypertensive. Hospital Medicine is following. GENERAL: Resting in bed, in no acute distress. Normal work of breathing. Wound VAC is in place. ASSESSMENT AND PLAN: As documented in daily progress note. Continue care as ordered. Continue to m onitor. Await disposition.
[2017-05-27] MEDS: Piperacillin/Tazobactam 3.375 GM in Sodium Chloride 0.9% 100 ML IVPB SCH ×4 (04:01→21:07)
[2017-05-27] MEDS: Vancomycin HCl 1.25 GM in Sodium Chloride 0.9% 250 ML 250 ML IVPB SCH (09:49)
[2017-05-27] MEDS: Enoxaparin Sodium 40 MG/0.4 ML SYRINGE SC SCH (09:49)
[2017-05-27] MEDS: Metoprolol Tartrate 25 MG TAB PO SCH ×2 (09:50→21:06)
[2017-05-27] MEDS: Aspirin 81 mg Enteric Coated Tablet PO SCH (09:50)
[2017-05-27] MEDS: Famotidine 20 MG TAB PO SCH ×2 (09:50→21:06)
[2017-05-27] MEDS: Gabapentin 300 MG CAP PO SCH ×3 (09:50→21:06)
[2017-05-27] MEDS: Docusate 100 MG CAP PO SCH ×2 (10:30→21:07)
[2017-05-27] MEDS: Acetaminophen 325 MG TAB PO PRN (10:40)
[2017-05-27] MEDS ORDERED: Oseltamivir 75 MG CAP PO SCH (11:45)
--- NOTE | 2017-05-27 14:30 | PRG ---
DATE OF SERVICE: 05/27/2017 SUBJECTIVE: Mr. Dash is awake and alert. He is postoperative day #3 status post excisional debrid ement of sacral decubitus ulcer. The patient denies any pain at this time. The wound VAC was removed yesterday and dressing was reapplied. Wound care nurses reported granulati ng tissues. No gross purulence present. OBJECTIVE: VITAL SIGNS: Has remained hemodynamically stable. SKIN: Skin surrounding the excisional wound has no redness. ASSESSMENT AND PLAN: The patient is hemodynamically stable from surgical standpoint, to return to [facility] where he will continue with his recovery. Outpatient wound care rosalinda li is being arranged to [facility].
--- NOTE | 2017-05-27 15:45 | PDOC.PN ---
- Subjective Encounter Start Date: 05/27/17 Encounter Start Time: 15:44 Mr. Dash says he doesn't feel so well today. He has had high temperature, and he has been congested and feels short of breath. - Objective Resuscitation Status: Resuscitation Status DNR:Do Not Resuscitate MAR Reviewed: Yes Vital Signs & Weight: Vital Signs (12 hours) Temp Pulse Resp BP BP Pulse Ox 05/27/17 11:30 100.4 F H 81 20 126/63 84 L 05/27/17 10:39 100.7 F H 05/27/17 08:00 101.1 F H 90 20 05/27/17 07:35 101.1 F H 90 20 177/50 H 87 L 05/27/17 03:58 99.3 F 87 18 150/67 H 93 L Weight Admit Weight 217 lb Weight 217 lb I&O: 05/26/17 05/27/17 05/28/17 06:59 06:59 06:59 Intake Total 2100 Balance 2100 Result Diagrams: 05/24/17 05:23 05/24/17 05:23 Phys Exam - Physical Examination HEENT: PERRLA Respiratory: wheezing present + rhonchi bilaterally, rales at the bases Cardiovascular: RRR, no significant murmur, no rub Gastrointestinal: soft, non-tender, positive bowel sounds Musculoskeletal: no edema Dx/Plan (1) Decubitus ulcer of sacral region, unstageable Code(s): L89.150 - PRESSURE ULCER OF SACRAL REGION, UNSTAGEABLE Status: Acute (2) S/P TAVR (transcatheter aortic valve replacement) Code(s): Z95.2 - PRESENCE OF PROSTHETIC HEART VALVE Status: Acute (3) Aortic stenosis, severe Code(s): I35.0 - NONRHEUMATIC AORTIC (VALVE) STENOSIS Status: Chronic Comment: (4) HTN (hypertension) Code(s): I10 - ESSENTIAL (PRIMARY) HYPERTENSION Status: Chronic Qualifiers: Comment: (5) Obesity (BMI 30.0-34.9) Code(s): E66.9 - OBESITY, UNSPECIFIED Status: Chronic (6) Atrial fibrillation Code(s): I48.91 - UNSPECIFIED ATRIAL FIBRILLATION Status: Chronic Qualifiers: Atrial fibrillation type: paroxysmal Qualified Code(s): I48.0 - Paroxysmal atrial fibrillation Comment: with RVR - Plan * Influenza A- will start Tamiflu, as his symptoms just started today. * Will check a chest X-ray, and will start duonebs * Sacral decubitus- continue local wound care and wound vac. * Wound culture- due to multiple organisms, sensitivities were not preformed- will consult ID to aid in outpatient antibiotics choice * HTN- blood pressure is still quite labile- Continue Metoprolol, and Hydralazine PRN
--- NOTE | 2017-05-27 18:56 | RAD ---
PORTABLE CHEST ONE VIEW 05/27/17 at 6:27 p.m. HISTORY: Cough, congestion, influenza A. FINDINGS: Comparison made to exam of 04/05/17. There are changes of median sternotomy. The heart is enlarged. The aorta is tortuous. Left sided pace maker device is again noted. No confluent areas of consolidation, pneumothorax or soco pulmonary enma ma or pleural effusions are seen. IMPRESSION: No acute process. POS: RENEA
[2017-05-27] MEDS: Sodium Chloride 0.9% 1,000 ML IV SCH (20:09)
[2017-05-27] MEDS: Oseltamivir 75 MG CAP PO SCH (22:56)
[2017-05-28] MEDS: Piperacillin/Tazobactam 3.375 GM in Sodium Chloride 0.9% 100 ML IVPB SCH ×3 (03:50→15:09)
[2017-05-28] MEDS: Ondansetron HCl/PF 4 MG/2 ML Vial SLOW IVP PRN (04:14)
[2017-05-28] MEDS ORDERED: Bisacodyl 10 MG SUPP PR PRN (05:44)
[2017-05-28] MEDS: Sodium Chloride 0.9% 1,000 ML IV SCH (07:04)
[2017-05-28 08:15] LABS: Vancomycin, Trough 12.8 ug/mL
[2017-05-28] MEDS: Vancomycin HCl 1.25 GM in Sodium Chloride 0.9% 250 ML 250 ML IVPB SCH (09:22)
[2017-05-28] MEDS: Gabapentin 300 MG CAP PO SCH ×2 (09:23→15:09)
[2017-05-28] MEDS: Docusate 100 MG CAP PO SCH (09:23)
[2017-05-28] MEDS: Oseltamivir 75 MG CAP PO SCH (09:24)
[2017-05-28] MEDS: Metoprolol Tartrate 25 MG TAB PO SCH (09:24)
[2017-05-28] MEDS: Famotidine 20 MG TAB PO SCH (09:24)
[2017-05-28] MEDS: Aspirin 81 mg Enteric Coated Tablet PO SCH (09:24)
[2017-05-28] MEDS: Enoxaparin Sodium 40 MG/0.4 ML SYRINGE SC SCH (09:25)
[2017-05-28 10:09] VITALS: BP 164/67
--- NOTE | 2017-05-28 11:07 | RAD ---
ABDOMEN 1 VIEW: HISTORY: Abdomen pain. FINDINGS: There is gaseous distention of the small and large bowel. Calcifications overlie the arterial struct ures and pelvis. There are degenerative changes of the lumbar spine and hips. IMPRESSION: 1. Nonobstructive bowel gas pattern. 2. Atherosclerosis. POS: ANGIE
--- NOTE | 2017-05-28 16:48 | PDOC.PN ---
- Subjective Encounter Start Date: 05/28/17 Encounter Start Time: 16:46 - Objective Resuscitation Status: Resuscitation Status DNR:Do Not Resuscitate MAR Reviewed: Yes Vital Signs & Weight: Vital Signs (12 hours) Temp Pulse Resp BP Pulse Ox Pulse Ox 05/28/17 12:52 97.8 F 05/28/17 10:44 98 05/28/17 09:23 83 05/28/17 08:00 99.1 F 80 20 97 05/28/17 07:30 99.1 F 80 20 164/67 H 97 Weight Admit Weight 217 lb Weight 217 lb I&O: 05/27/17 05/28/17 05/29/17 06:59 06:59 06:59 Intake Total 2580 Output Total 400 Balance 2180 Result Diagrams: 05/24/17 05:23 05/24/17 05:23 Phys Exam - Physical Examination HEENT: PERRLA Respiratory: no wheezing + rhonchi bilaterally, but less than yesterday Cardiovascular: RRR, no significant murmur Gastrointestinal: soft, non-tender, positive bowel sounds Musculoskeletal: no edema Dx/Plan (1) Decubitus ulcer of sacral region, unstageable Code(s): L89.150 - PRESSURE ULCER OF SACRAL REGION, UNSTAGEABLE Status: Acute (2) S/P TAVR (transcatheter aortic valve replacement) Code(s): Z95.2 - PRESENCE OF PROSTHETIC HEART VALVE Status: Acute (3) Aortic stenosis, severe Code(s): I35.0 - NONRHEUMATIC AORTIC (VALVE) STENOSIS Status: Chronic Comment: (4) HTN (hypertension) Code(s): I10 - ESSENTIAL (PRIMARY) HYPERTENSION Status: Chronic Qualifiers: Comment: (5) Obesity (BMI 30.0-34.9) Code(s): E66.9 - OBESITY, UNSPECIFIED Status: Chronic (6) Atrial fibrillation Code(s): I48.91 - UNSPECIFIED ATRIAL FIBRILLATION Status: Chronic Qualifiers: Atrial fibrillation type: paroxysmal Qualified Code(s): I48.0 - Paroxysmal atrial fibrillation Comment: with RVR - Plan * Sacral decubitus- clinically stable from the surgical standpoint * Influenza A- much improved from yesterday- no evidence of pneumonia on chest - Xray * stable for discharge to the [facility] bed.
[2017-05-28 17:29] VITALS: TEMP 98.2
--- NOTE | 2017-05-29 03:03 | DIS ---
DATE OF ADMISSION: 05/23/2017 DATE OF DISCHARGE: 05/28/2017 PRIMARY CARE PHYSICIAN: Dr. Marcelo Haskins DISCHARGE DISPOSITION: To the swing bed in [place]. DISCHARGE DIAGNOSES: 1. Stage III sacral decubitus present on admission. 2. Influenza A. 3. History of coronary artery disease status post coronary artery bypass graft. 4. Recent transcatheter aortic valve replacement. 5. Chronic atrial fibrillation. DISCHARGE MEDICATIONS: Please note that Eliquis is on hold due to the recent surgery. This will nee d to be restarted once it is okay with the surgery team, wound care team or medical health researcher there. Also, patient was also noted to be on Plavix as the home medication. Again, this will be restarted. Eliquis will need to be clarified when to restart. Tramadol to continue 100 mg q.6, potassium chlor efraín 20 mEq daily, Tamiflu 75 mg twice a day for 3 days, Minocin 100 mg twice a day for 10 days, Lopre ssor 25 mg twice daily, [place] 5/325 q.4 hours as needed, gabapentin 100 mg at bedtime and 300 mg twic e daily, Lasix 40 mg daily, Pepcid 20 mg twice a day, Cardizem-CD 120 mg daily, aspirin 81 mg daily. PROCEDURES DONE DURING ADMISSION: The patient had a sharp debridement of the sacral decubitus. CODE STATUS: DNR. ALLERGIES: No known drug allergies. HOSPITAL COURSE: Mr. Dash is a pleasant 77-year-old gentleman who came to the hospital due to david re sacral pain. He was found to have a stage III sacral decubitus which had an overlying eschar and he was seen by General Surgery. This was sharply debrided and he had a wound VAC placed. He was stone ated with IV antibiotics. Wound cultures grew MRSA and multiple gram negative organisms. He had bee n treated with Cipro and vancomycin for approximately 5 days prior to discharge and then transitioned over to oral antibiotics. Again, Eliquis had been held due to the surgery. The patient developed i nfluenza A while in the hospital, but responded well to Tamiflu and in fact just 1 day of Tamiflu, hi s symptoms completely resolved. Once the bed was available, he was transitioned to the [facility] facility in [place].
[2017-05-29] MEDS ORDERED: Saccharomyces boulardii 250 MG CAP PO SCH (09:00)
== END 2017-05-28 19:15 | disposition home or self-care (01) | DRG 579 ==
LOC: ERS 16:47 → OBSVTOIN 18:02 → SURG A 18:02
PROVIDERS: ADMIT Internal Medicine; ATTEND Internal Medicine
PROC: 0KBP0ZZ Excision of Left Hip Muscle, Open Approach (ICD-10-PCS; principal; 2017-05-24)
PROC: 0KBN0ZZ Excision of Right Hip Muscle, Open Approach (ICD-10-PCS; 2017-05-24)
DX: L89.153 Pressure ulcer of sacral region, stage 3 (principal); I48.0 Paroxysmal atrial fibrillation; R53.2 Functional quadriplegia; E44.1 Mild protein-calorie malnutrition; I48.2 Chronic atrial fibrillation; I10 Essential (primary) hypertension; E66.9 Obesity, unspecified; I35.0 Nonrheumatic aortic (valve) stenosis; J10.1 Influenza due to other identified influenza virus with other respiratory manifestations; Z68.31 Body mass index [BMI] 31.0-31.9, adult; Z99.3 Dependence on wheelchair; Z95.0 Presence of cardiac pacemaker; Z95.1 Presence of aortocoronary bypass graft; Z95.2 Presence of prosthetic heart valve; Z96.652 Presence of left artificial knee joint; Z86.73 Personal history of transient ischemic attack (TIA), and cerebral infarction without residual deficits; Z66 Do not resuscitate; Z82.49 Family history of ischemic heart disease and other diseases of the circulatory system
CPT/HCPCS: 36415; 36416; 71045; 74018; 80053; 80202; 85025; 85610; 87070; 87077; 87186; 87205; 94640; 94760; G8978-GP-CJ; G8987-GO-CM; G8988-GO-CJ; J1650; J2250; J2270; J2405; J2543; J2704; J3010; J3370; J7050; J7620

== ENCOUNTER 2017-06-18 09:04 | Outpatient (CLI) | payer MEDICARE ==
--- NOTE | 2017-06-18 11:30 | HP ---
DATE OF SERVICE: 06/18/2017 HISTORY OF PRESENT ILLNESS: Mr. Danilo Dash is a very pleasant 77-year-old gentleman, who presents to the Wound Center for evaluation of a sacral pressure ulceration. The patient states that the sac ral pressure ulceration developed during a hospital stay in [place], when he underwent TAVR. The pat ient underwent an excisional debridement of the sacral decubitus ulceration on 05/24/[address] Isaiah James. The patient states that he has received negative pressure therapy for his sacral decubitu s ulceration. The patient is presently residing at [facility]. Mr. Dash was referred to [facility] by Dr. Haskins on 06/16/2017. PAST MEDICAL HISTORY: 1. Anemia. 2. Coronary artery disease. 3. Hypertension. 4. Ischemic cerebrovascular accident. 5. Gastroesophageal reflux disease. 6. Benign prostatic hypertrophy. 7. Congestive heart failure, diastolic. 8. Severe aortic stenosis, status post TAVR. 9. Sick sinus syndrome. 10. Atrial fibrillation. 11. Chronic kidney disease. PAST SURGICAL HISTORY: 1. Left revision total knee arthroplasty. 2. Left total knee arthroplasty. 3. Coronary artery bypass grafting x3. 4. Pacemaker placement. 5. Prostatectomy. 6. TURP. 7. Lumbar spine surgery. 8. Herniorrhaphy. 9. Right total knee arthroplasty. 10. I&D of thigh abscess. 11. Excisional debridement of sacral decubitus ulcer, 05/24/2017. MEDICATIONS: The patient does not have a list of his medications with him today. The patient states that his medications; however, include tramadol, gabapentin, antidiuretic. ALLERGIES: No known diagnosed allergies. SOCIAL HISTORY: Significant for tobacco use in the past. The patient states that he began smoking a t age 14 and then he stopped smoking around age [age]. He states that over this period of time, he s moked up to 2 packs of cigarettes per day. The patient also admits to the heavy consumption of alcoh ol on the weekends in the past. He states that he stopped consuming alcohol approximately 2 years ag o. FAMILY HISTORY: Negative for diabetes mellitus. Family history is significant for coronary artery d isease. The patient states that his father was diagnosed with coronary artery disease. PHYSICAL EXAMINATION: VITAL SIGNS: Temperature 98.0, pulse 89, respirations 18, and blood pressure 145/60. GENERAL: A 77-year-old gentleman lying on stretcher in examination room in no acute distress. HEENT: Normocephalic, atraumatic. NECK: No nuchal rigidity. CHEST: Clear to auscultation. CARDIAC: Regular rate and rhythm. ABDOMEN: Soft. BACK: An ulceration of the sacrum is present, which measures approximately 8.5 x 5.7 cm. Necrotic a nd nonviable tissue present within the wound margins was debrided with an excisional full-thickness d ebridement with the use of scissors. No purulent drainage is associated with the wound. No cellulit is of the sacral region is appreciated. No maceration of the skin of the periwound is noted. Bone i s palpable within the wound margins on exam today. EXTREMITIES: No clubbing or cyanosis. ASSESSMENT AND PLAN: Sacral pressure ulceration as described above. CT scan of the pelvis obtained on 06/16/2017 revealed findings consistent with early osteomyelitis versus some reactive osteitis. I will discuss the treatment plan with Dr. Haskins. Dressing changes of Medihoney and 4 x 4s, followe d by Mepilex sacral will be initiated today. These dressing changes are to be performed on a daily b asis after cleansing and irrigation. I have discussed the importance of offloading in achieving the healing of the ulceration with Mr. Dash. The patient states that he will cooperate to the best of his ability with efforts to offload his sacral ulceration. I will see Mr. Dash again in two weeks. 2. Anemia. 3. Coronary artery disease. 4. Hypertension. 5. Ischemic cerebrovascular accident. 6. Gastroesophageal reflux disease. 7. Benign prostatic hypertrophy. 8. Congestive heart failure, diastolic. 9. Severe aortic stenosis, status post transcatheter aortic valve replacement. 10. Sick sinus syndrome. 11. Atrial fibrillation. 12. Chronic kidney disease.
== END 2017-06-18 09:05 | disposition home or self-care (01) ==
LOC: WCC 09:04
PROVIDERS: ATTEND Family Medicine
DX: L89.159 Pressure ulcer of sacral region, unspecified stage (principal); D64.9 Anemia, unspecified; I25.10 Atherosclerotic heart disease of native coronary artery without angina pectoris; I63.9 Cerebral infarction, unspecified; K21.9 Gastro-esophageal reflux disease without esophagitis; N40.0 Benign prostatic hyperplasia without lower urinary tract symptoms; I50.30 Unspecified diastolic (congestive) heart failure; I35.0 Nonrheumatic aortic (valve) stenosis; Z95.2 Presence of prosthetic heart valve; I49.5 Sick sinus syndrome; I13.0 Hypertensive heart and chronic kidney disease with heart failure and stage 1 through stage 4 chronic kidney disease, or unspecified chronic kidney disease; I48.91 Unspecified atrial fibrillation; N18.9 Chronic kidney disease, unspecified; D63.1 Anemia in chronic kidney disease
CPT/HCPCS: 11042; 11045; 97139; G0463; 99203

== ENCOUNTER 2017-07-02 10:02 | Outpatient (CLI) | payer MEDICARE, OTHER ==
--- NOTE | 2017-07-02 11:40 | PRG ---
DATE OF SERVICE: 07/02/2017 HISTORY: Mr. Danilo Dash is a very pleasant 77-year-old gentleman, who presents to the [facility] for evaluation of a sacral pressure ulceration. The patient previously stated that the sacral pres sure ulceration developed during a hospital stay in [place] when he underwent TAVR. The patient unde rwent an excisional debridement of the sacral decubitus ulceration on 05/24/[address] Trevon James . At the time of the patient's initial presentation to the Wound Center, Mr. Dash stated that he h ad received negative pressure therapy for his sacral decubitus ulceration. The patient continues to reside at [facility]. The patient was referred to the Wound Center by Dr. Haskins on 06/16/19 18. Since the patient's last visit, Mr. Dash has been receiving dressing changes of Medihoney and 4 x 4s, followed by Mepilex sacral on a daily basis after cleansing and irrigation. PHYSICAL EXAMINATION: VITAL SIGNS: Temperature 98.1, pulse 80, respirations 18, and blood pressure 117/73. BACK: An ulceration of the sacrum is present, which measures approximately 6.5 x 8.0 cm. Nonviable tissue present within the wound margins was debrided with an excisional full-thickness debridement. No purulent drainage is associated with the wound. No cellulitis of the sacral region is appreciated . No maceration of the skin of the periwound is noted. No bone is palpable within the wound margins on exam today as was palpable at the time of the patient's last visit. ASSESSMENT AND PLAN: 1. Sacral pressure ulceration as described above. Dressing changes of Medihoney and 4 x 4s, followe d by Mepilex sacral will be continued on a daily basis after cleansing and irrigation. Again, I have discussed the importance of offloading in achieving the healing of the ulceration with Mr. Dash. I will see Mr. Dash again in two weeks. I will also discuss the treatment plan with Dr. Haskins. 2. Anemia. 3. Coronary artery disease. 4. Hypertension. 5. Ischemic cerebrovascular accident. 6. Gastroesophageal reflux disease. 7. Benign prostatic hypertrophy. 8. Congestive heart failure, diastolic. 9. Severe aortic stenosis, status post transcatheter aortic valve replacement. 10. Sick sinus syndrome. 11. Atrial fibrillation. 12. Chronic kidney disease.
== END 2017-07-02 10:03 | disposition home or self-care (01) ==
LOC: WCC 10:02
PROVIDERS: ATTEND Family Medicine
DX: L89.159 Pressure ulcer of sacral region, unspecified stage (principal); I25.10 Atherosclerotic heart disease of native coronary artery without angina pectoris; I63.9 Cerebral infarction, unspecified; K21.9 Gastro-esophageal reflux disease without esophagitis; N40.0 Benign prostatic hyperplasia without lower urinary tract symptoms; I50.9 Heart failure, unspecified; I13.0 Hypertensive heart and chronic kidney disease with heart failure and stage 1 through stage 4 chronic kidney disease, or unspecified chronic kidney disease; I49.5 Sick sinus syndrome; N18.9 Chronic kidney disease, unspecified; D63.1 Anemia in chronic kidney disease; Z95.2 Presence of prosthetic heart valve

== ENCOUNTER 2020-06-27 21:06 | Inpatient (IN) | payer MEDICARE ==
[2020-06-27] MEDS ORDERED: Ondansetron PF 4 MG/2 ML Vial ONE (21:18)
[2020-06-27] MEDS ORDERED: Morphine 4 MG/ML VIAL ONE (21:18)
[2020-06-27 21:44] LABS: Hemoglobin 8.3 g/dL (14.0-18.0); Mean Corpuscular HGB CONC 32.7 g/dL (32.0-36.0); Mean Corpuscular Hemoglobin 30.9 pg (27.0-31.0); Mean Corpuscular Volume 94.5 fL (78.0-98.0); Platelet Count 183 thou/uL (130-400); RBC Distribution Width 13.4 % (11.5-14.5); White Blood Cell (WBC) Count 8.8 thou/uL (4.8-10.8)
--- NOTE | 2020-06-27 21:48 | RAD ---
Frontal radiograph pelvis: 06/27/2020 COMPARISON: None HISTORY: Fall from a wheelchair FINDINGS: The pubic symphysis and sacroiliac joints demonstrate no abnormal widening. There is vascul ar calcification within the pelvis and imaged proximal thighs. There is moderate bilateral hip degenerative change. The pelvic ring appears intact. No displaced fracture is noted. IMPRESSION: No displaced pelvic fracture.
--- NOTE | 2020-06-27 21:50 | RAD ---
Frontal and lateral imaging of the left femur: 06/27/2020 COMPARISON: None HISTORY: Injury, trauma, pain FINDINGS: There is a comminuted obliquely oriented displaced left femoral shaft fracture which is at the proximal aspect of a distal left femoral intramedullary stem associated with a left knee arthroplasty. The distal fracture fragment demonstrates 4-5 cm of lateral displacement, approximately 5 cm of proximal displacement, and significant anterior/lateral angulation. IMPRESSION: Distal left femur fracture. Orthopedic consultation advised.
[2020-06-27 21:51] LABS: INR-International Normal Ratio 1.3; PTT 30.9 sec (22.9-36.1); Prothrombin Time 16.1 sec (12.0-14.7)
--- NOTE | 2020-06-27 21:51 | RAD ---
Portable frontal chest radiograph: 06/27/2020 COMPARISON: 06/08/2017 HISTORY: Injury, trauma FINDINGS: Stable midline sternotomy wires and transvenous pacing device. Stable atherosclerotic calci fication of the aortic arch. Supine imaging limits evaluation for pneumothorax and pleural fluid. No focal consolidation or alveolar edema. IMPRESSION: No acute findings.
--- NOTE | 2020-06-27 21:52 | RAD ---
2 views of the left knee: 06/27/2020 HISTORY: Injury, trauma, pain FINDINGS: There is a left knee arthroplasty. There is an obliquely oriented fracture of the distal le ft femoral shaft with approximately 4-5 cm of lateral displacement as well as 4-5 cm of proximal displacement. This fracture is at the proximal aspect of the distal left femoral intramedullary dhaval. There is comminution noted on the lateral view. Distal fracture fragment is displaced anteriorly by 2-3 cm and demonstrates anterior angulation. IMPRESSION: Distal left femur fracture as above.
[2020-06-27 21:59] LABS: Band 9 % (5-11); Hypochromia SLIGHT = 6-15 cells (100X) (0-5/hpf); Lymphocytes 7 % (21-51); MDiff Complete? YES; Monocytes 19 % (0-10); Neutrophil 65 % (42-75); Platelet Morphology Comment Appears Adequate
[2020-06-27 22:05] LABS: ALT (SGPT) Less than 7 U/L (8-55); AST (SGOT) 13 U/L (5-34); Alkaline Phosphatase 58 U/L (40-110); Anion Gap 14 mmol/L (10-20); BUN (Urea Nitrogen) 41 mg/dL (8.4-25.7); Bilirubin, Total 0.4 mg/dL (0.2-1.2); Calc. Creatinine Clearance 0 mL/min (70-130); Calcium 7.3 mg/dL (7.8-10.44); Carbon Dioxide 21 mmol/L (23-31); Chloride 103 mmol/L (98-107); Globulin 2.8 g/dL (2.4-3.5); Glucose 114 mg/dL (83-110); Potassium 4.4 mmol/L (3.5-5.1); Protein, Total 5.8 g/dL (5.8-8.1); Sodium 134 mmol/L (136-145)
[2020-06-27] MEDS ORDERED: Dextrose 50% Abboject 50 ML SYRINGE SLOW IVP PRN (22:27)
[2020-06-27] MEDS ORDERED: Ondansetron PF 4 MG/2 ML Vial IVP PRN (22:27)
[2020-06-27] MEDS ORDERED: Dextrose 5% in Water 1,000 ML IV PRN (22:27)
[2020-06-27] MEDS ORDERED: hydrALAZINE 20 MG/ML VIAL SLOW IVP PRN (22:27)
[2020-06-27] MEDS ORDERED: Morphine 2 MG/ML VIAL SLOW IVP PRN (22:27)
[2020-06-27] MEDS ORDERED: Sodium Chloride 0.9% 1,000 ML IV SCH (22:30)
[2020-06-27] MEDS ORDERED: Cyclobenzaprine 10 MG TAB PO PRN (22:32)
[2020-06-27 22:49] LABS: Magnesium 2.3 mg/dL (1.6-2.6); Phosphorus 3.8 mg/dL (2.3-4.7)
[2020-06-27 22:53] LABS: Bacteria/HPF 4+ HPF (None Seen); Bilirubin Negative (Negative); Blood, Urine 1+ (Negative); Clarity Turbid (Clear); Glucose, Urine (Dipstick) Normal (Negative); Ketone, Urine Negative (Negative); Leukocyte 500 Leu/uL (Negative); Nitrite Negative (Negative); Protein, Urine (Dipstick) 30 mg/dL (Neg-Trace); RBC/HPF 0-3 HPF (0-3); Renal Epithelial 0-3 HPF (None Seen); Specific Gravity, Urine 1.012 (1.002-1.036); Squamous Epithelial 0-3 HPF (0-3); Urobilinogen Normal mg/dL (Less than 2); WBC/HPF Greater than 50 HPF (0-3); pH, Urine 6.5 (5.0-9.0)
[2020-06-28] MEDS ORDERED: Sodium Phosphate 15 MMOL in Sodium Chloride 0.9% 250 ML 250 ML IVPB SCH (00:30)
--- NOTE | 2020-06-28 01:14 | HP ---
REQUESTING PHYSICIAN: Dr. Roche. CONSULTS: Orthopedic Surgery, Dr. Chowdhury. PRIMARY CARE PHYSICIAN: Dr. Haskins. CHIEF COMPLAINT: Mechanical fall, left thigh pain. HISTORY OF PRESENT ILLNESS: This is an 80-year-old male with a past medical history of hypertension, congestive heart failure, atrial fibrillation in which he takes Eliquis and Plavix, aortic stenosis, coronary artery disease, and chronic kidney disease. The patient states that he was sitting on the edge of his bed when he slid out of the bed. The patient states his mattress is new and soft, which caused him to slide out of the bed, landing on his left leg. The patient denies hitting his head or losing consciousness. The patient denies feeling weak, dizzy, having shortness of breath or chest pain prior to falling. The patient denies any recent illness including cough, cold, or fever. The patient is nonambulatory and bed ridden. The patient continued to have increased pain and was sent to the emergency room where he was evaluated to have a left distal femur fracture. Trauma Service was asked to admit the patient. The patient states he last took his medications including his blood thinners at 8 p.m. this evening. PAST MEDICAL HISTORY: Lymphedema; coronary artery disease; hypertension; gastroesophageal reflux disease; ischemic cerebrovascular accident; benign prostatic hypertrophy; severe aortic stenosis, status post TAVR; atrial fibrillation; chronic kidney disease; anemia; pressure ulcers on bilateral heels and sacrum; and peripheral neuropathy. PAST SURGICAL HISTORY: Left total knee arthroplasty, coronary artery bypass graft x3, pacemaker placement, prostatectomy, TURP, lumbar spine surgery, right total knee arthroplasty, excisional debridement of sacral decubitus in 2018. ALLERGIES: NO KNOWN DRUG ALLERGIES. SOCIAL HISTORY: Tobacco use in the past, stopped at age 45. Denies alcohol use. Denies illicit drug use. Lives at home, bedridden. FAMILY HISTORY: Negative for diabetes. Significant for coronary artery disease. MEDICATIONS: The patient unable to verbalize medications, but does state he takes Plavix and Eliquis. 1. Amlodipine 2.5 mg once a day. 2. Plavix 75 mg once a day. 3. Gabapentin 300 mg twice a day. 4. Lasix 40 mg once a day. 5. Tramadol 50 mg q.6 hours p.r.n. pain. 6. Eliquis 5 mg once a day. REVIEW OF SYSTEMS: A 12-point review of systems is negative unless otherwise indicated in the above HPI. PHYSICAL EXAMINATION: VITAL SIGNS: Blood pressure 102/48, pulse 57, respirations 16, SpO2 of 100% on room air, temperature 98.1. GENERAL: Elderly male, awake, alert, in no distress. HEENT: Head is atraumatic and normocephalic. Pupils are equal bilaterally. NECK: Trachea is midline. No JVD. No cervical spine tenderness. Normal range of motion of neck. RESPIRATORY: Bilateral breath sounds clear. No wheezing, rales, or rhonchi. CARDIOVASCULAR: Irregularly irregular rate. No murmurs. Positive pedal edema. ABDOMEN: Soft, nondistended, obese. EXTREMITIES: Moves all extremities. Strength in upper extremities 5/5, lower extremity strength 3/5, bilateral lower extremities bandaged with Coban and compression stockings. Left lower extremity with thigh deformity. Difficulty palpating pedal pulses. NEUROLOGIC: GCS 15. SKIN: Warm and dry. Normal color. LABORATORY DATA: WBC 8.8, RBC 2.70, hemoglobin 8.3, hematocrit 25.5, and platelets 183. PT 16.1, INR 1.3, and APTT 30.9. Sodium 134, potassium 4.4, chloride 103, carbon dioxide 21, BUN 41, creatinine 3.01, estimated GFR 20, glucose 114, calcium 7.3, phosphorus 3.8, magnesium 2.3, AST 13, ALT less than 7, alkaline phosphatase 53. BNP 262.3. Albumin 3.0. Urinalysis: Negative nitrites. Positive leukocyte esterase. Positive wbc's. Bacteria 4+. DIAGNOSTIC IMAGING STUDIES: 1. EKG, V-paced. 2. Chest x-ray, impression: No acute findings. 3. Pelvis x-ray, impression: No displaced pelvic fracture. 4. Femur x-ray, impression: Distal left femur fracture which is at the proximal aspect of the distal left femoral intramedullary stem associated with a left knee arthroplasty. The distal fracture fragment demonstrates 4 to 5 cm of lateral displacement, approximately 5 cm proximal displacement, and significant anterior lateral angulation. 5. Left knee x-ray, impression: Distal left femur fracture. ASSESSMENT: 1. Mechanical fall. 2. Left distal femur fracture. 3. Hyponatremia. 4. Acute on chronic kidney disease, stage 4. 5. Chronic anemia. 6. Bilateral lower extremity pressure ulcers, treated by Wound Care three days a week. 7. Urinary tract infection, present on admission. 8. History of coronary artery disease; congestive heart failure; atrial fibrillation, on blood thinners; hypertension; pressure ulcers; peripheral neuropathy; gastroesophageal reflux disease; cerebrovascular accident. PLAN: Admit to the surgical floor. Hold anticoagulants. Pain control. N.p.o. after midnight as Orthopedic Surgery plans to take the patient to the OR. Obtain an echocardiogram as the last one was done in 2017 with an ejection fraction of 50% to 55%. Renal dose all medications. Maintenance IV fluids, normal saline 100 mL an hour x1 bag. Treat UTI with Rocephin. Wound care consult for continued wound care. Type and cross for 2 units of blood. Send urine for culture. PT and OT to evaluate and treat postop. The plan will be discussed with the attending after this dictation. Job ID: [id number] [id number]
[2020-06-28] MEDS: Acetaminophen 500 MG TAB PO SCH ×4 (01:22→17:24)
[2020-06-28] MEDS: cefTRIAXone\\ROCEPHIN 1 GM in Sodium Chloride 0.9% 100 ML IVPB SCH (02:17)
[2020-06-28 02:39] VITALS: BMI 31.8
[2020-06-28 05:49] LABS: Anion Gap 11 mmol/L (10-20); BUN (Urea Nitrogen) 42 mg/dL (8.4-25.7); Calc. Creatinine Clearance 27 mL/min (70-130); Calcium 7.2 mg/dL (7.8-10.44); Carbon Dioxide 22 mmol/L (23-31); Chloride 104 mmol/L (98-107); Glucose 105 mg/dL (83-110); Magnesium 2.3 mg/dL (1.6-2.6); Phosphorus 5.1 mg/dL (2.3-4.7); Potassium 4.3 mmol/L (3.5-5.1); Sodium 133 mmol/L (136-145)
[2020-06-28 06:14] LABS: Band 6 % (5-11); Eosinophils 2 % (0-10); Hemoglobin 7.2 g/dL (14.0-18.0); Hypochromia SLIGHT = 6-15 cells (100X) (0-5/hpf); Lymphocytes 10 % (21-51); MDiff Complete? YES; Mean Corpuscular HGB CONC 30.8 g/dL (32.0-36.0); Mean Corpuscular Hemoglobin 28.4 pg (27.0-31.0); Mean Corpuscular Volume 92.4 fL (78.0-98.0); Mean Platelet Volume 8.2 fL (7.4-10.4); Monocytes 12 % (0-10); Neutrophil 70 % (42-75); Platelet Count 162 thou/uL (130-400); Platelet Morphology Comment Appears Adequate; RBC Distribution Width 13.5 % (11.5-14.5); Red Blood Cell (RBC) Count 2.54 mill/uL (4.70-6.10); White Blood Cell (WBC) Count 6.4 thou/uL (4.8-10.8)
[2020-06-28] MEDS: Ascorbic Acid 500 mg Chewable Tablet PO SCH ×2 (08:37→21:00)
[2020-06-28] MEDS: Senokot S 8.6-50 MG TAB PO SCH ×2 (08:37→20:59)
[2020-06-28] MEDS: Ferrous Sulfate 325 MG TAB PO SCH ×2 (08:37→17:25)
[2020-06-28] MEDS: Tamsulosin HCl 0.4 MG CAP PO SCH (08:37)
[2020-06-28] MEDS: Gabapentin 300 MG CAP PO SCH ×2 (08:37→20:59)
[2020-06-28] MEDS: Polyethylene Glycol 3350 17 GM Packet PO SCH (08:38)
[2020-06-28] MEDS ORDERED: FLU VACC QS2020-21(65YR UP)/PF 240 MCG/0.7 ML SYRINGE IM ONE (09:00)
[2020-06-28] MEDS ORDERED: Famotidine/PF 20 mg/2ml Vial SLOW IVP SCH (09:00)
[2020-06-28 12:24] LABS: SARS-CoV-2 PCR by NAA Not Detected (NotDetected)
--- NOTE | 2020-06-28 12:31 | PRG ---
DATE OF SERVICE: SUBJECTIVE: Mr. Dash, 80-year-old status post mechanical fall. Sitting up, eating breakfast this morning. Patient does not appear to be in any pain or malnourished. No surgery today patient is on Eliquis and Plavix at home. X-ray reviewed this morning, which shows a let distal femur fracture. OBJECTIVE: VITAL SIGNS: Temperature 96.7, respiratory rate 16, O2 97, pulse 56, blood pressure 1113/57. GENERAL: The patient is resting comfortably, no distress. RESPIRATORY: Breathing on room air. No accessory muscle use. No acute distress. CARDIAC: Regular rate and rhythm. ABDOMEN: Mildly distended, nontender to palpation. EXTREMITIES: Moves all extremities. Strength in upper extremity is 5/5, lower extremity is 3/5. Bilateral lower extremity bandages with Coban and compression stockings. Left lower extremity with thigh deformity. NEUROLOGIC: GCS of 15. LABORATORY DATA: White blood cell count 6.4, hemoglobin 7.2, hematocrit 23.5, platelets 162. Sodium 133, potassium 4.3, chloride 104, carbon dioxide 22, BUN 42, creatinine 2.95. Glucose 105, phosphorus 5.1, magnesium 2.3. UA; 4+ bacteria, pending culture. X-ray shows left femur fracture. Echo pending ASSESSMENT: 1. Status post mechanical fall. 2. Left distal femur fracture. 3. Chronic hyponatremia. 4. Acute on chronic kidney disease. 5. Chronic anemia. 6. Bilateral lower extremity pressure ulcers. 7. Urinary tract infection, present on admission. 8. Chronic history of hypertension, congestive heart failure, atrial fibrillation, and aortic stenosis, gastroesophageal reflux disease, cerebrovascular accident, and peripheral neuropathy. PLAN: 1. Consult Orthopedics, OR tomorrow with orthopedic team. 2. Hyponatremia, chronic, correct gradually. 3. Maintenance fluids for ZACH. 4. Wound care for bilateral extremity pressure ulcers. 5. UTI, having culture. 6. Anemia 1 unit pRBC 7.2, 7. Resume home medications as needed. 8 Dispo, patient's primary care doctor is Dr. Haskins. Discharge to [facility] in [place], [place] when medically stable from orthopedic team. Patient was seen with and he agrees with the plan. Job ID: [id number] MTDD
[2020-06-28] MEDS: traMADol HCl 50 MG TAB PO PRN (14:41)
[2020-06-28] MEDS ORDERED: Famotidine 20 MG TAB PO SCH (21:00)
[2020-06-29] MEDS: Acetaminophen 500 MG TAB PO SCH ×4 (00:17→17:52)
[2020-06-29] MEDS: cefTRIAXone\\ROCEPHIN 1 GM in Sodium Chloride 0.9% 100 ML IVPB SCH (02:47)
[2020-06-29 05:56] LABS: #Eosinphils 0.2 thou/uL (0.0-0.7); #Lymphocytes 0.6 thou/uL (1.20-3.40); #Monocytes 0.7 thou/uL (0.11-0.59); #Neutrophils 5.5 thou/uL (1.40-6.50); %Basophils 0.1 % (0.0-1.0); %Lymphocytes 8.8 % (21.0-51.0); %Monocytes 9.9 % (0.0-10.0); %Neutrophils 78.2 % (42.0-75.0); Hemoglobin 7.8 g/dL (14.0-18.0); Mean Corpuscular HGB CONC 32.2 g/dL (32.0-36.0); Mean Corpuscular Hemoglobin 29.4 pg (27.0-31.0); Mean Corpuscular Volume 91.3 fL (78.0-98.0); Mean Platelet Volume 8.5 fL (7.4-10.4); Platelet Count 156 thou/uL (130-400); RBC Distribution Width 13.6 % (11.5-14.5); Red Blood Cell (RBC) Count 2.66 mill/uL (4.70-6.10)
[2020-06-29 06:14] LABS: Anion Gap 14 mmol/L (10-20); BUN (Urea Nitrogen) 44 mg/dL (8.4-25.7); Calc. Creatinine Clearance 30 mL/min (70-130); Calcium 6.9 mg/dL (7.8-10.44); Carbon Dioxide 18 mmol/L (23-31); Chloride 107 mmol/L (98-107); Glucose 120 mg/dL (83-110); Magnesium 2.3 mg/dL (1.6-2.6); Phosphorus 5.9 mg/dL (2.3-4.7); Potassium 4.2 mmol/L (3.5-5.1); Sodium 135 mmol/L (136-145)
[2020-06-29] MEDS ORDERED: Dextrose 5 % And 0.9 % NaCl 1,000 ML IV SCH (07:15)
[2020-06-29] MEDS ORDERED: CEFAZOLIN 2 GM in Premix Bag 1 BAG IVPB SCH (08:30)
--- NOTE | 2020-06-29 08:54 | CON ---
DATE OF CONSULTATION: 06/28/2020 CHIEF COMPLAINT: Left leg pain. HISTORY OF PRESENT ILLNESS: Mr. Dash is an 80-year-old male, who lives at home. He has poor mobility at baseline. He has neuropathy of his right leg. He has difficulty with ambulation because of this. He does get to a wheelchair and transfer fairly independently. He fell at home landing on his left side. He had pain and deformity of his left leg. He was taken to the emergency department, where x-rays have demonstrated a left distal femoral fracture, just proximal to his total knee arthroplasty. He has a displaced fracture. Of note, the patient is on Eliquis, he took Eliquis on the day of his presentation to the hospital. PAST MEDICAL HISTORY: Lymphedema, coronary artery disease, hypertension, GERD, CVA, BPH, aortic stenosis, atrial fibrillation, chronic kidney disease, anemia, and chronic ulcerations of his feet and sacrum. PAST SURGICAL HISTORY: Left total knee arthroplasty, history of coronary artery bypass graft, prostatectomy, TURP, lumbar spine surgery, right total knee arthroplasty, has had debridement of his decubiti in the past. ALLERGIES: NO KNOWN DRUG ALLERGIES. SOCIAL HISTORY: The patient denies tobacco, alcohol, or drug use. FAMILY MEDICAL HISTORY: Negative and noncontributory. MEDICATIONS: Include: 1. Amlodipine. 2. Plavix. 3. Gabapentin. 4. Lasix. 5. Tramadol. 6. Eliquis. REVIEW OF SYSTEMS: Positive for left leg pain. Otherwise, negative 10-point review of systems. IMAGING STUDIES: X-rays of the left femur demonstrate a displaced femoral shaft fracture. This is proximal to a total knee arthroplasty, which appears to be intact. The arthroplasty has a stem consistent with a revision-type implant. LABORATORY STUDIES: Hemoglobin is 7.8, hematocrit is 24.2. Coagulation studies; PT is 16.1, INR is 1.3. Sodium is 135, potassium is 4.2, and creatinine is 2.68. PHYSICAL EXAMINATION: VITAL SIGNS: Temperature is 97.4, pulse is 64, respiratory rate of 20, blood pressure is 120/50. GENERAL: He is alert, lying supine, in no apparent distress. ABDOMEN: Soft, nontender, and nondistended. MUSCULOSKELETAL: The patient's left lower extremity has deformity at the thigh. He has obvious motion and crepitus with his femoral fracture. He has a well-healed scar over the anterior knee. He has chronic ulcerations around his sacrum and his heels bilaterally. These are wrapped with pressure dressings. IMPRESSION: Left distal femoral fracture with displacement, periprosthetic. PLAN: The patient has many severe medical problems and he is essentially a non-ambulator. He does mobilize to a wheelchair to get around the house. He has a bad injury to his left leg, however. He has a displaced femoral fracture. This will likely cause him ongoing pain and make it very difficult for him to sit up or sit in a chair. In my experience, patients do not do well with femoral fracture treated nonoperatively. He would be at risk for erosion and tenting of the skin as well. After discussion with him, he wants to accept the risk and stabilize his fracture with a plate. I think this will give him pain relief as well as prevent other complications of prolonged bedrest. At least with surgery, he can hopefully get to a chair comfortably. He is at risk given his medical complications such as stroke, NH, or even after or during surgery. He is at risk for infection given his chronic wounds. We will hold his Eliquis. He is wanting to go to surgery when possible. We will take him for open reduction and internal fixation. He will have prophylactic antibiotics, and we will restart his Eliquis on postop day #1. Questions have been answered. Job ID: [id number]
[2020-06-29] MEDS: Famotidine 20 MG TAB PO SCH (09:02)
[2020-06-29] MEDS: Ferrous Sulfate 325 MG TAB PO SCH ×2 (09:02→17:52)
[2020-06-29] MEDS: Ascorbic Acid 500 mg Chewable Tablet PO SCH ×2 (09:02→22:31)
[2020-06-29] MEDS: Polyethylene Glycol 3350 17 GM Packet PO SCH (09:03)
[2020-06-29] MEDS: Senokot S 8.6-50 MG TAB PO SCH ×2 (09:03→22:31)
[2020-06-29] MEDS: Gabapentin 300 MG CAP PO SCH ×2 (09:03→22:31)
[2020-06-29] MEDS: Tamsulosin HCl 0.4 MG CAP PO SCH (09:07)
[2020-06-29] MEDS ORDERED: Rocuronium Bromide 10 MG/ML (10ML VIAL) ONE (13:13)
[2020-06-29] MEDS ORDERED: PHENYLEPHRINE-NS 100 MCG/ML 10 ML SYRINGE ONE (13:13)
[2020-06-29] MEDS ORDERED: PROPOFOL 200 MG/20 ML VIAL ONE (13:13)
[2020-06-29] MEDS ORDERED: Ondansetron PF 4 MG/2 ML Vial ONE (13:13)
[2020-06-29] MEDS ORDERED: Lidocaine 1% PF 5 ML VIAL ONE (13:13)
[2020-06-29] MEDS ORDERED: Dexamethasone 20 MG/5 ML VIAL ONE (13:13)
--- NOTE | 2020-06-29 13:49 | PRG ---
DATE OF SERVICE: 06/29/2020 SUBJECTIVE: This is an 80-year-old male with past medical history of hypertension, congestive heart failure, atrial fibrillation, aortic stenosis, coronary artery disease, chronic kidney disease, who is status post fall leading to a left distal femur fracture. The patient states that his pain is controlled this morning. OBJECTIVE: VITAL SIGNS: Blood pressure 120/66, pulse 62, respiration 14, O2 saturation 92% on room air, and temperature 98.1. GENERAL: The patient is resting comfortably. No acute distress. CARDIOVASCULAR: Regular rate and rhythm. No murmurs, rubs, or gallops heard. LUNGS: No acute distress. Lungs are clear to auscultation bilaterally. ABDOMEN: Mildly distended. Nontender to palpation. NEUROLOGIC: GCS of 15. LABORATORY DATA: Labs were reviewed this morning. No radiographs were reviewed this morning. ASSESSMENT: 1. Status post mechanical fall. 2. Left distal femur fracture. 3. Chronic hyponatremia. 4. Acute on chronic kidney disease. 5. Bilateral lower extremity pressure ulcers. 6. Urinary tract infection. 7. Hypertension. 8. Congestive heart failure. 9. Atrial fibrillation. 10. Aortic stenosis. 11. Gastroesophageal reflux disease. 12. Cerebrovascular accident. 13. Peripheral neuropathy. PLAN: The patient to go to OR today with Orthopedics. Continue maintenance IV fluids. Status post 1 unit of packed red blood cells. We will not transfuse any more blood at this time. Continue wound care. Resume home medications. The patient to be discharged to a swing bed in [place] for disposition. The patient was seen by Dr. James and rest of the Trauma Team. He is agreeable with the current plan. Job ID: [id number]
[2020-06-29 14:28] LABS: Hemoglobin 9.4 g/dL (14.0-18.0)
[2020-06-29] MEDS ORDERED: Ketamine 50 MG/ML (10ML VIAL) ONE (15:45)
[2020-06-29] MEDS ORDERED: Fentanyl 100 MCG/2 ML VIAL ONE ×3 (15:59→19:07)
[2020-06-29] MEDS ORDERED: SUGAMMADEX SODIUM 200 MG/2 ML VIAL ONE (17:52)
--- NOTE | 2020-06-29 18:07 | RAD ---
TWO VIEWS LEFT FEMUR: 06/29/20 PROVIDED CLINICAL HISTORY: ORIF. FINDINGS: Comparison 06/27/20. Multiple spot fluoroscopic images of the left femur demonstrate interval lateral side plate and screw fixation previously described periprosthetic distal femoral diaphyseal fracture. IMPRESSION: As above. POS: TARA
[2020-06-29] MEDS ORDERED: Ondansetron HCl/PF 4 MG/2 ML Vial IVP PRN (18:48)
[2020-06-29] MEDS ORDERED: Meperidine HCl/PF 25 MG/ML VIAL SLOW IVP PRN (18:48)
[2020-06-29] MEDS ORDERED: Promethazine HCl 25 MG/ML VIAL SLOW IVP PRN (18:48)
--- NOTE | 2020-06-29 19:50 | OP ---
DATE OF PROCEDURE: 06/29/2020 PROCEDURE PERFORMED: 1. Open reduction and internal fixation of left periprosthetic distal femur fracture. 2. Irrigation and debridement of left calcaneal ulceration. PREOPERATIVE DIAGNOSIS: Periprosthetic left distal femur fracture and full-thickness skin necrosis of left heel. POSTOPERATIVE DIAGNOSIS: Periprosthetic left distal femur fracture and full-thickness skin necrosis of left heel. COMPLICATIONS: None. ESTIMATED BLOOD LOSS: Minimal. CONTROL VALVE TECHNICIAN: Shubham Savage. IMPLANTS: Synthes 16-hole distal femoral plate with multiple screws and 2 Synthes cables were utilized. INDICATIONS: Mr. Dash is an 80-year-old male who has fallen from bed and fractured his left femur. He has a total knee arthroplasty with a stem. He has fracture just above his total knee arthroplasty. He presented to the emergency department with pain and deformity. He has been indicated for open reduction and internal fixation to stabilize the femur hopefully allow femoral healing and allow pain control so that he can mobilize out of bed to his chair. He has heel ulcerations, which are chronic. He has a large eschar over the left heel with infection. He has been indicated for debridement of this ulceration as well. Risks of the procedure have been reviewed. The goal of surgery is pain relief and preserving quality of life. The patient is at risk for infection, wound complication, nerve or vascular injury, DVT, PE, and others. DESCRIPTION OF PROCEDURE: Mr. Dash was identified in the preoperative holding area. His correct extremity was marked. He was carried to the operating room. He was positioned supine. General anesthesia was induced. A multidisciplinary time-out was performed. The left lower extremity was prepped and draped in sterile fashion. We began the procedure with exposure of the patient's lateral femur. We made an incision over the fracture site. Dissected down through the subcutaneous tissues to the fascia, which was opened. We then exposed the underlying vastus lateralis, which was elevated anteriorly. At this point, we exposed the femur fracture. This was a two part shortened and displaced fracture. We pulled traction on the limb and used reduction forceps to reduce the bone back into its anatomic position. We held this with a reduction clamp. We then applied a cable over the fracture to further stabilize our fracture and hold our reduction while we applied our plate. At this point, we slid a 16-hole plate from distal to proximal. We placed multiple screws distally and proximally locking the plate to the bone, holding our reduction well. We took x-ray images confirming that we had good reduction and good fixation. We thoroughly irrigated with copious lavage at this point. We then proceeded to close the wounds in layers. A sterile dressing was applied to the thigh. At this point, we moved to the patient's left heel. We identified the 8 cm x 6 cm eschar. This was debrided sharply down to the bony level. There was full- thickness necrosis and infection with purulent material deep to the eschar. There was necrotic bone on the medial aspect of the calcaneus as well. This was debrided with a rongeur. We worked to the margins of the necrosis, debriding sharply as well as bluntly. We thoroughly irrigated with copious lavage at this point. We obtained hemostasis. We then performed a final excisional debridement. We then applied a sterile dressing to the heel. At this point, the patient was taken to the recovery room in good condition without complications. The assistant wrestling coach surgeon was responsible for positioning the patient, preparing the injured extremity, applying the tourniquet, and assisting in preparation for surgery. The assistant wrestling coach was instrumental in reducing the injured limb by applying traction and reduction maneuvers as well as holding retractors and reduction tools. The assistant wrestling coach also was instrumental in assisting in exposure throughout the operation using appropriate retractors. The assistant wrestling coach participated in closure of the operative site as well as dressing application and splint application. Job ID: [id number] [facility]
[2020-06-29] MEDS ORDERED: Haloperidol Lactate 5 MG/ML VIAL SLOW IVP PRN ×2 (20:27→21:58)
[2020-06-29] MEDS: CEFAZOLIN 2 GM in Premix Bag 1 BAG IVPB SCH (21:52)
[2020-06-30] MEDS: cefTRIAXone\\ROCEPHIN 1 GM in Sodium Chloride 0.9% 100 ML IVPB SCH (02:22)
[2020-06-30] MEDS: Acetaminophen 500 MG TAB PO SCH ×5 (02:27→22:36)
[2020-06-30 05:25] LABS: #Lymphocytes 0.4 thou/uL (1.20-3.40); #Monocytes 0.6 thou/uL (0.11-0.59); #Neutrophils 10.8 thou/uL (1.40-6.50); %Eosinophils 0.4 % (0.0-10.0); %Lymphocytes 3.4 % (21.0-51.0); %Monocytes 5.4 % (0.0-10.0); %Neutrophils 90.8 % (42.0-75.0); Hemoglobin 8.4 g/dL (14.0-18.0); Mean Corpuscular HGB CONC 33.7 g/dL (32.0-36.0); Mean Corpuscular Hemoglobin 30.8 pg (27.0-31.0); Mean Corpuscular Volume 91.5 fL (78.0-98.0); Mean Platelet Volume 8.2 fL (7.4-10.4); Platelet Count 180 thou/uL (130-400); RBC Distribution Width 13.8 % (11.5-14.5); Red Blood Cell (RBC) Count 2.74 mill/uL (4.70-6.10); White Blood Cell (WBC) Count 11.9 thou/uL (4.8-10.8)
[2020-06-30 05:34] LABS: Anion Gap 15 mmol/L (10-20); BUN (Urea Nitrogen) 40 mg/dL (8.4-25.7); Calc. Creatinine Clearance 32 mL/min (70-130); Calcium 7.1 mg/dL (7.8-10.44); Carbon Dioxide 20 mmol/L (23-31); Chloride 110 mmol/L (98-107); Glucose 161 mg/dL (83-110); Magnesium 2.5 mg/dL (1.6-2.6); Phosphorus 4.6 mg/dL (2.3-4.7); Potassium 4.7 mmol/L (3.5-5.1); Sodium 140 mmol/L (136-145)
[2020-06-30] MEDS: CEFAZOLIN 2 GM in Premix Bag 1 BAG IVPB SCH ×3 (06:10→22:37)
[2020-06-30] MEDS: Tamsulosin HCl 0.4 MG CAP PO SCH (09:52)
[2020-06-30] MEDS: traMADol HCl 50 MG TAB PO PRN (09:52)
[2020-06-30] MEDS: Gabapentin 300 MG CAP PO SCH ×2 (09:52→19:36)
[2020-06-30] MEDS: Polyethylene Glycol 3350 17 GM Packet PO SCH (09:55)
[2020-06-30] MEDS: Ferrous Sulfate 325 MG TAB PO SCH ×2 (09:55→17:40)
[2020-06-30] MEDS: Famotidine 20 MG TAB PO SCH (09:56)
[2020-06-30] MEDS: Ascorbic Acid 500 mg Chewable Tablet PO SCH ×2 (09:57→19:36)
[2020-06-30] MEDS: Senokot S 8.6-50 MG TAB PO SCH ×2 (09:57→19:43)
[2020-06-30] MEDS ORDERED: Morphine 4 MG/ML VIAL SLOW IVP PRN (10:05)
--- NOTE | 2020-06-30 15:07 | PRG ---
DATE OF SERVICE: 06/30/2020 SUBJECTIVE: Mr. Dash is an 80-year-old male, status post mechanical fall. The patient is postoperative day #1 from ORIF left periprosthetic distal femur fracture and irrigation and debridement of left calcaneal ulceration. The patient this morning was recovering well on the floor, sitting up in bed. Wound care nurses were in the room this morning. Overnight, the patient was very agitative, pulling on the Mann and pulling out his IVs. The patient received one dose of Haldol. The patient is tolerating regular diet. Case Management is working on discharging to [facility]. ' OBJECTIVE: VITAL SIGNS: Temperature 97.4, pulse 65, respiratory rate 16, O2 saturation 95%, blood pressure 126/33. GENERAL: The patient is resting comfortably in bed. In no distress. RESPIRATORY: Breathing on room air. No accessory muscle use. Speaking full sentences. CARDIAC: Regular rate and rhythm. ABDOMEN: Soft, nondistended, and nontender. EXTREMITIES: Moves all extremities. Strength upper extremities 5/5, Bilateral lower extremities have bandages, Coban, and compression stocking. Incision site, minimal ecchymosis around the area, covered with dressing. NEUROLOGIC: GCS 15. LABORATORY DATA: Hemoglobin 8.4, hematocrit 25.0, white blood cell count 11.9, platelets 180. Sodium 140, potassium 4.7, chloride 110, carbon dioxide 20, BUN 40, creatinine 2.53. ASSESSMENT: 1. Status post mechanical fall. 2. Left distal femur fracture. 3. Chronic hyponatremia, resolved. 4. Acute kidney disease. 5. Chronic anemia. 6. Bilateral lower extremity pressure ulcers. 7. Urinary tract infection, present on admission, on antibiotics. 8. Chronic hypertension, congestive heart failure, atrial fibrillation, aortic stenosis, gastroesophageal reflux disease, peripheral neuropathy. PLAN: 1. Appreciate Orthopedic recommendations, status post left femur open reduction, internal fixation and calcaneal debridement. 2. Hyponatremia, resolved. 3. Acute kidney injury, stable. BUN and creatinine 40 and 2.53. 4. Wound care,daily 5. UTI, culture gram-negative Proteus. Continue cefazolin. 6. Anemia, stable. H and H 8.4 and 25.0. 7. Continue all home medications, start elquis, Discontinue Mann. 8. Disposition: To [facility], after PT evaluation. Follow up with PCP Dr. Haskins. Job ID: [id number] MTDD
[2020-06-30] MEDS: Apixaban 2.5 MG TAB PO SCH (19:36)
[2020-06-30] MEDS ORDERED: Apixaban 5 MG TAB PO SCH (21:00)
[2020-07-01 05:04] LABS: #Eosinphils 0.2 thou/uL (0.0-0.7); #Neutrophils 6.9 thou/uL (1.40-6.50); %Basophils 0.1 % (0.0-1.0); %Eosinophils 2.3 % (0.0-10.0); %Lymphocytes 11.2 % (21.0-51.0); %Monocytes 10.8 % (0.0-10.0); %Neutrophils 75.6 % (42.0-75.0); Hemoglobin 7.4 g/dL (14.0-18.0); Mean Corpuscular HGB CONC 32.7 g/dL (32.0-36.0); Mean Corpuscular Hemoglobin 29.6 pg (27.0-31.0); Mean Corpuscular Volume 90.6 fL (78.0-98.0); Mean Platelet Volume 7.9 fL (7.4-10.4); Platelet Count 210 thou/uL (130-400); White Blood Cell (WBC) Count 9.2 thou/uL (4.8-10.8)
[2020-07-01 05:22] LABS: Anion Gap 13 mmol/L (10-20); BUN (Urea Nitrogen) 49 mg/dL (8.4-25.7); Calc. Creatinine Clearance 35 mL/min (70-130); Calcium 7.2 mg/dL (7.8-10.44); Carbon Dioxide 21 mmol/L (23-31); Chloride 108 mmol/L (98-107); Glucose 93 mg/dL (83-110); Magnesium 2.4 mg/dL (1.6-2.6); Phosphorus 3.9 mg/dL (2.3-4.7); Potassium 4.2 mmol/L (3.5-5.1); Sodium 138 mmol/L (136-145)
[2020-07-01] MEDS: CEFAZOLIN 2 GM in Premix Bag 1 BAG IVPB SCH ×2 (05:31→14:57)
[2020-07-01] MEDS: Acetaminophen 500 MG TAB PO SCH ×3 (05:31→16:59)
[2020-07-01] MEDS: Polyethylene Glycol 3350 17 GM Packet PO SCH (08:19)
[2020-07-01] MEDS: Tamsulosin HCl 0.4 MG CAP PO SCH (08:21)
[2020-07-01] MEDS: Gabapentin 300 MG CAP PO SCH ×2 (08:21→20:03)
[2020-07-01] MEDS: Famotidine 20 MG TAB PO SCH (08:21)
[2020-07-01] MEDS: Ferrous Sulfate 325 MG TAB PO SCH ×2 (08:21→16:58)
[2020-07-01] MEDS: Ascorbic Acid 500 mg Chewable Tablet PO SCH ×2 (08:22→20:03)
[2020-07-01] MEDS: Senokot S 8.6-50 MG TAB PO SCH ×2 (08:22→20:03)
[2020-07-01] MEDS: Apixaban 2.5 MG TAB PO SCH ×2 (12:02→20:03)
--- NOTE | 2020-07-01 12:24 | PRG ---
DATE OF SERVICE: 07/01/2020 SUBJECTIVE: The patient was seen this morning during rounds. He was lying in bed, resting comfortably. He was easily arousable. Reported his pain is well controlled. Tolerating his diet. Working with physical therapy. Wound Care to evaluate left heel upon my injury. OBJECTIVE: VITAL SIGNS: Temperature 97.3, pulse 66, respirations 14, oxygen saturation 98% on room air, blood pressure 118/62. GENERAL: Well-appearing elderly male, sitting up in bed with no signs of acute distress. PULMONARY: Equal chest rise and fall. Clear breath sounds bilaterally. No signs of acute respiratory distress. CARDIAC: Regular rate and rhythm. GI: Abdomen is soft, nontender, nondistended. EXTREMITIES: 2+ pulses in all extremities. Gross motor and sensation intact. No significant swelling noted. Dressings to bilateral feet are clean, dry, and intact with no signs of oozing. LABORATORY FINDINGS: White count 9.2, hemoglobin 7.4, hematocrit 22.6, platelets 210. Sodium 138, potassium 4.2, chloride 108, bicarb 21, BUN 49, creatinine 2.32, glucose 27, phosphorus 3.9, magnesium 2.4. DIAGNOSTIC FINDINGS: There are no new diagnostic findings to report. ASSESSMENT: 1. Status post mechanical fall, on Plavix and Eliquis. 2. Left distal femur fracture, status post repair. 3. Acute kidney injury on chronic kidney disease, stage 4 - resolving. 4. Urinary tract infection, Proteus. 5. History of hypertension, CAD, CABG, CVA, peripheral neuropathy, bed-bound, bilateral lower extremity ulcers, CHF, atrial fibrillation, pacemaker, aortic stenosis, status post TAVR, chronic anemia, and CKD. PLAN: Continue current diet and pain regimen. Continue physical and occupational therapy. Continue Rocephin for a total of 3 days. Proteus bacteria is reported sensitive to Rocephin. We will not give the patient blood today, although his hemoglobin dropped by one point. He is hemodynamically stable, and his kidney function is improving. He also reports no symptoms of anemia. We will elect to continue to watch at this time and continue Eliquis. The patient is pending discharge to [facility]. Job ID: [id number]
[2020-07-02] MEDS: Acetaminophen 500 MG TAB PO SCH ×5 (00:05→23:28)
[2020-07-02 04:35] LABS: #Eosinphils 0.3 thou/uL (0.0-0.7); #Lymphocytes 1.2 thou/uL (1.20-3.40); #Monocytes 0.9 thou/uL (0.11-0.59); %Basophils 0.3 % (0.0-1.0); %Eosinophils 2.9 % (0.0-10.0); %Lymphocytes 11.2 % (21.0-51.0); %Monocytes 8.7 % (0.0-10.0); %Neutrophils 76.9 % (42.0-75.0); Hemoglobin 7.2 g/dL (14.0-18.0); Mean Corpuscular HGB CONC 31.9 g/dL (32.0-36.0); Mean Corpuscular Volume 91.1 fL (78.0-98.0); Mean Platelet Volume 7.9 fL (7.4-10.4); Platelet Count 234 thou/uL (130-400); Red Blood Cell (RBC) Count 2.46 mill/uL (4.70-6.10); White Blood Cell (WBC) Count 10.4 thou/uL (4.8-10.8)
[2020-07-02 05:19] LABS: Anion Gap 13 mmol/L (10-20); BUN (Urea Nitrogen) 50 mg/dL (8.4-25.7); Calc. Creatinine Clearance 37 mL/min (70-130); Calcium 7.3 mg/dL (7.8-10.44); Carbon Dioxide 22 mmol/L (23-31); Chloride 110 mmol/L (98-107); Glucose 93 mg/dL (83-110); Magnesium 2.4 mg/dL (1.6-2.6); Phosphorus 3.2 mg/dL (2.3-4.7); Potassium 4.5 mmol/L (3.5-5.1); Sodium 140 mmol/L (136-145)
[2020-07-02] MEDS ORDERED: PHOS-NAK 1 PKT PACK PO SCH (08:15)
[2020-07-02] MEDS: Polyethylene Glycol 3350 17 GM Packet PO SCH (08:47)
[2020-07-02] MEDS: Apixaban 2.5 MG TAB PO SCH ×2 (08:47→19:55)
[2020-07-02] MEDS: Senokot S 8.6-50 MG TAB PO SCH ×2 (08:47→19:54)
[2020-07-02] MEDS: Ascorbic Acid 500 mg Chewable Tablet PO SCH ×2 (08:48→19:54)
[2020-07-02] MEDS: Ferrous Sulfate 325 MG TAB PO SCH ×2 (08:48→17:16)
[2020-07-02] MEDS: Gabapentin 300 MG CAP PO SCH ×2 (08:48→19:54)
[2020-07-02] MEDS: Famotidine 20 MG TAB PO SCH (08:48)
[2020-07-02] MEDS: Amlodipine 5 MG TAB PO SCH (08:48)
[2020-07-02] MEDS: Tamsulosin HCl 0.4 MG CAP PO SCH (08:49)
--- NOTE | 2020-07-02 13:55 | PRG ---
DATE OF SERVICE: 07/02/2020 SUBJECTIVE: The patient was seen this morning during rounds. He was sitting up, awake and alert with no signs of acute distress. He was on the phone and reported he had no issues. Nursing reports no acute events. OBJECTIVE: VITAL SIGNS: Temperature 97.3, pulse 80, respirations 16, oxygen saturation 98% on room air, blood pressure 144/70. GENERAL: Well-appearing elderly male, sitting up in bed, awake and alert with no signs of acute distress. PULMONARY: Equal chest rise and fall. Clear breath sounds bilaterally. No signs of acute respiratory distress. CARDIAC: Regular rate and rhythm. GI: Abdomen is soft, nontender, nondistended. EXTREMITIES: 2+ pulses in all extremities. Gross motor and sensation intact. Bilateral lower extremities with dressings that are clean, dry, and intact. NEURO: GCS is 15. LABORATORY FINDINGS: White count 10.4, hemoglobin 7.2, hematocrit 22.4, platelets 234. Sodium 140, potassium 4.5, chloride 110, bicarb 22, BUN 50, creatinine 2.20, glucose 93, phosphorus 3.2, magnesium 2.7. DIAGNOSTIC FINDINGS: There are no new diagnostic findings to report. ASSESSMENT: 1. Status post mechanical fall from standing, on Eliquis and Plavix. 2. Left distal femur fracture, status post repair. 3. Acute kidney injury on chronic kidney disease, resolved. 4. Urinary tract infection, Proteus - uncomplicated. 5. History of hypertension, coronary artery disease, coronary artery bypass graft, CVA, peripheral neuropathy, bedbound, lower extremity ulcers, congestive heart failure, atrial fibrillation, pacemaker, aortic stenosis, status post TAVR, anemia, and chronic kidney disease. PLAN: Continue current diet and pain regimen. Continue physical and occupational therapy. Restart the patient's home amlodipine and Lasix. Replace phosphorus orally. We will hold off on blood transfusion today as it has been not indicated. Continue to monitor CBC. The patient is pending discharge to [facility]. He is ready for discharge at this time. Job ID: [id number]
[2020-07-02] MEDS ORDERED: Furosemide 40 MG TAB PO SCH (14:00)
--- NOTE | 2020-07-02 14:23 | RAD ---
Exam: Chest one view HISTORY:Cough Comparison: 06/27/2020 FINDINGS: Cardiac silhouette:Cardiomegaly. Stable stent projecting over the ascending thoracic aorta. There is atherosclerosis of the aortic knob. Aorta: As above Pulmonary vessels: Normal Costophrenic angles: Clear Additional findings: Stable sternotomy while and left-sided transvenous pacemaker. LUNGS: No masses or consolidation. Pneumothorax: None Osseous abnormalities: None IMPRESSION: No acute cardiopulmonary process.
[2020-07-03] MEDS ORDERED: Acetaminophen 500 MG TAB ONE ×2 (05:03→13:10)
[2020-07-03] MEDS: Furosemide 40 MG TAB PO SCH (09:00)
[2020-07-03] MEDS: Gabapentin 300 MG CAP PO SCH ×2 (09:00→20:26)
[2020-07-03] MEDS: Ascorbic Acid 500 mg Chewable Tablet PO SCH ×2 (09:00→20:25)
[2020-07-03] MEDS: Famotidine 20 MG TAB PO SCH (09:00)
[2020-07-03] MEDS: Apixaban 2.5 MG TAB PO SCH ×2 (09:00→20:26)
[2020-07-03] MEDS: Amlodipine 5 MG TAB PO SCH (09:00)
[2020-07-03] MEDS: Senokot S 8.6-50 MG TAB PO SCH ×2 (09:00→20:25)
[2020-07-03] MEDS: Tamsulosin HCl 0.4 MG CAP PO SCH (09:00)
[2020-07-03] MEDS: Polyethylene Glycol 3350 17 GM Packet PO SCH (09:00)
[2020-07-03] MEDS ORDERED: Senokot S 8.6-50 MG TAB ONE (09:14)
[2020-07-03] MEDS ORDERED: Gabapentin 300 MG CAP ONE (09:14)
[2020-07-03] MEDS ORDERED: Ascorbic Acid 500 mg Chewable Tablet ONE (09:14)
[2020-07-03] MEDS ORDERED: Polyethylene Glycol 3350 17 GM Packet ONE (09:14)
[2020-07-03] MEDS ORDERED: Famotidine 20 MG TAB ONE (09:14)
[2020-07-03] MEDS ORDERED: Amlodipine 5 MG TAB ONE (09:14)
[2020-07-03] MEDS ORDERED: Furosemide 40 MG TAB ONE (09:14)
[2020-07-03] MEDS ORDERED: Apixaban 5 MG TAB ONE (09:14)
[2020-07-03] MEDS ORDERED: Tamsulosin HCl 0.4 MG CAP ONE (09:14)
[2020-07-03] MEDS: Acetaminophen 500 MG TAB PO SCH ×4 (12:00→23:24)
[2020-07-03] MEDS ORDERED: cefTRIAXone\\ROCEPHIN 1 GM in Sodium Chloride 0.9% 100 ML IVPB SCH ×2 (13:30→14:00)
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
[2020-07-03] MEDS: Ferrous Sulfate 325 MG TAB PO SCH ×2 (15:14→16:53)
[2020-07-03 17:42] LABS: Anion Gap 13 mmol/L (10-20); BUN (Urea Nitrogen) 48 mg/dL (8.4-25.7); Calc. Creatinine Clearance 40 mL/min (70-130); Calcium 7.8 mg/dL (7.8-10.44); Carbon Dioxide 21 mmol/L (23-31); Chloride 109 mmol/L (98-107); Glucose 77 mg/dL (83-110); Magnesium 2.5 mg/dL (1.6-2.6); Phosphorus 3.5 mg/dL (2.3-4.7); Potassium 4.2 mmol/L (3.5-5.1); Sodium 139 mmol/L (136-145)
[2020-07-03 19:27] LABS: #Eosinphils 0.3 thou/uL (0.0-0.7); #Lymphocytes 1.1 thou/uL (1.20-3.40); #Monocytes 0.8 thou/uL (0.11-0.59); #Neutrophils 7.2 thou/uL (1.40-6.50); %Basophils 0.3 % (0.0-1.0); %Eosinophils 2.9 % (0.0-10.0); %Lymphocytes 11.7 % (21.0-51.0); %Monocytes 7.9 % (0.0-10.0); %Neutrophils 77.1 % (42.0-75.0); Hemoglobin 7.4 g/dL (14.0-18.0); Mean Corpuscular HGB CONC 31.2 g/dL (32.0-36.0); Mean Corpuscular Volume 92.9 fL (78.0-98.0); Platelet Count 253 thou/uL (130-400); RBC Distribution Width 14.4 % (11.5-14.5); Red Blood Cell (RBC) Count 2.55 mill/uL (4.70-6.10); White Blood Cell (WBC) Count 9.4 thou/uL (4.8-10.8)
[2020-07-03 19:55] LABS: Anion Gap 15 mmol/L (10-20); BUN (Urea Nitrogen) 45 mg/dL (8.4-25.7); Calc. Creatinine Clearance 41 mL/min (70-130); Calcium 7.8 mg/dL (7.8-10.44); Carbon Dioxide 20 mmol/L (23-31); Chloride 107 mmol/L (98-107); Glucose 120 mg/dL (83-110); Potassium 4.8 mmol/L (3.5-5.1); Sodium 137 mmol/L (136-145)
[2020-07-03] MEDS: Ciprofloxacin 500 MG TAB PO SCH (20:25)
[2020-07-04] MEDS: Ciprofloxacin 500 MG TAB PO SCH ×2 (05:01→20:38)
[2020-07-04] MEDS: Acetaminophen 500 MG TAB PO SCH ×3 (05:01→18:09)
[2020-07-04 05:21] LABS: #Eosinphils 0.2 thou/uL (0.0-0.7); #Lymphocytes 1.2 thou/uL (1.20-3.40); #Monocytes 0.8 thou/uL (0.11-0.59); #Neutrophils 8.6 thou/uL (1.40-6.50); %Basophils 0.2 % (0.0-1.0); %Eosinophils 1.8 % (0.0-10.0); %Monocytes 7.6 % (0.0-10.0); %Neutrophils 79.4 % (42.0-75.0); Hemoglobin 7.6 g/dL (14.0-18.0); Mean Corpuscular HGB CONC 31.7 g/dL (32.0-36.0); Mean Corpuscular Hemoglobin 29.2 pg (27.0-31.0); Mean Corpuscular Volume 92.1 fL (78.0-98.0); Mean Platelet Volume 7.7 fL (7.4-10.4); Platelet Count 269 thou/uL (130-400); RBC Distribution Width 14.7 % (11.5-14.5); White Blood Cell (WBC) Count 10.9 thou/uL (4.8-10.8)
[2020-07-04 05:42] LABS: Magnesium 2.5 mg/dL (1.6-2.6); Phosphorus 3.4 mg/dL (2.3-4.7)
[2020-07-04] MEDS: Furosemide 40 MG TAB PO SCH (06:05)
[2020-07-04] MEDS: Famotidine 20 MG TAB PO SCH (08:36)
[2020-07-04] MEDS: Tamsulosin HCl 0.4 MG CAP PO SCH (08:36)
[2020-07-04] MEDS: Polyethylene Glycol 3350 17 GM Packet PO SCH (08:36)
[2020-07-04] MEDS: Amlodipine 5 MG TAB PO SCH (08:37)
[2020-07-04] MEDS: Ascorbic Acid 500 mg Chewable Tablet PO SCH ×2 (08:37→20:38)
[2020-07-04] MEDS: Senokot S 8.6-50 MG TAB PO SCH ×2 (08:37→20:39)
[2020-07-04] MEDS: Gabapentin 300 MG CAP PO SCH ×2 (08:37→20:38)
[2020-07-04] MEDS: Apixaban 2.5 MG TAB PO SCH ×2 (08:41→20:38)
[2020-07-04] MEDS: Ferrous Sulfate 325 MG TAB PO SCH ×2 (08:43→18:15)
[2020-07-04] MEDS: Saccharomyces boulardii 250 MG CAP PO SCH (11:29)
[2020-07-04] MEDS ORDERED: cefTRIAXone\\ROCEPHIN 1 GM in Sodium Chloride 0.9% 100 ML IVPB SCH (16:00)
[2020-07-05] MEDS: Acetaminophen 500 MG TAB PO SCH ×5 (00:39→22:33)
[2020-07-05] MEDS: Ciprofloxacin 500 MG TAB PO SCH ×2 (05:29→22:33)
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
[2020-07-05] MEDS: Polyethylene Glycol 3350 17 GM Packet PO SCH (10:28)
[2020-07-05] MEDS: Famotidine 20 MG TAB PO SCH (10:29)
[2020-07-05] MEDS: Ferrous Sulfate 325 MG TAB PO SCH ×3 (10:29→16:33)
[2020-07-05] MEDS: Furosemide 40 MG TAB PO SCH (10:29)
[2020-07-05] MEDS: Senokot S 8.6-50 MG TAB PO SCH ×2 (10:29→22:33)
[2020-07-05] MEDS: Gabapentin 300 MG CAP PO SCH ×2 (10:30→22:34)
[2020-07-05] MEDS: Tamsulosin HCl 0.4 MG CAP PO SCH (10:31)
[2020-07-05] MEDS: Saccharomyces boulardii 250 MG CAP PO SCH (10:31)
[2020-07-05] MEDS: Amlodipine 5 MG TAB PO SCH (10:31)
[2020-07-05] MEDS: Apixaban 2.5 MG TAB PO SCH ×2 (10:32→22:34)
[2020-07-05] MEDS: Ascorbic Acid 500 mg Chewable Tablet PO SCH ×3 (10:32→22:37)
[2020-07-05] MEDS: traMADol HCl 50 MG TAB PO PRN (16:34)
--- NOTE | 2020-07-05 18:05 | PRG ---
DATE OF SERVICE: 07/05/2020 SUBJECTIVE: Danilo is an 80-year-old male, postop day 6 from a left knee supracondylar periprosthetic distal femur fracture. Nursing staff reports there was some drainage earlier today and yesterday evening from his operative site. He remained afebrile. OBJECTIVE: VITAL SIGNS: Temperature 97.9, pulse 60, respiratory rate 18 and unlabored, O2 saturation 96% on room air, and blood pressure . GENERAL: He is alert and oriented to person, place, time, and situation. Responsive and appropriate with the examiner. His incision is clean. There is no erythema. There is no strike through. I see no drainage at this point. No fluctuance that I can detect. [place] are intact. IMPRESSION: 1. An 80-year-old male postop day 6, left knee periprosthetic supracondylar femur fracture, status post open reduction and internal fixation. 2. Report of drainage from operative site. PLAN: 1. Sterile dressing will be applied and recheck in 24 hours. Nursing staff to either report or document photographically drainage and from what part of the incision it comes from. 2. We will recheck the patient tomorrow. Job ID: [id number]
--- NOTE | 2020-07-06 06:13 | PRG ---
DATE OF SERVICE: 07/05/2020 SUBJECTIVE: Mr. Dash is an 80-year-old male patient, status post ground level fall. Status post left distal femur fracture repair. The patient is doing well at this time, tolerating regular diet, and pain is well controlled. The patient has not had a bowel movement since the . The patient is on senna, Colace, and lactulose. Wound Care is seeing the patient daily. The patient is pending discharge to [place] when insurance authorization is approved. OBJECTIVE: VITAL SIGNS: Temperature 97.9, pulse 60, respiratory rate 18, 96% O2 saturation on room air, blood pressure 153/59. General No acute distress, sitting upright in bed. Cardiac regular rate and rhythm Pulmonary speaking full sentence, no accessory muscle use MSK: bilateral calcaneal ulcer, decrease sensation bilat LE LABORATORY DATA: No new labs today. DIAGNOSTIC IMAGING: No new imaging today. ASSESSMENT: 1. Status post ground level fall on Eliquis and Plavix. 2. Status post open reduction internal fixation of distal femur fracture. 3. Acute on chronic renal failure. 4. Urinary tract infection, Proteus, and Pseudomonas. 5. History of hypertension, coronary artery disease, coronary artery bypass grafting, past medical history of cerebrovascular accident and peripheral vascular disease, lower extremity ulcers, congestive heart failure and atrial fibrillation. 6. Bilateral heel ulcers. PLAN: We will continue to use Cipro for UTI. Continue wound care management. Continue DVT prophylaxis, pain management and bowel regimen. Continue home medications. DISPOSITION: To [place], pending insurance auth. The patient was seen and discussed on morning rounds with Dr. James. Job ID: [id number] MTDD
[2020-07-06] MEDS: Acetaminophen 500 MG TAB PO SCH ×3 (06:25→18:23)
[2020-07-06] MEDS: Ciprofloxacin 500 MG TAB PO SCH ×2 (06:26→19:52)
[2020-07-06] MEDS: Furosemide 40 MG TAB PO SCH (06:26)
[2020-07-06] MEDS: Famotidine 20 MG TAB PO SCH (09:00)
[2020-07-06] MEDS: Senokot S 8.6-50 MG TAB PO SCH ×2 (09:00→19:52)
[2020-07-06] MEDS: Polyethylene Glycol 3350 17 GM Packet PO SCH (09:00)
[2020-07-06] MEDS: Apixaban 2.5 MG TAB PO SCH ×2 (09:00→19:52)
[2020-07-06] MEDS: Amlodipine 5 MG TAB PO SCH ×2 (09:01→12:06)
[2020-07-06] MEDS: Ferrous Sulfate 325 MG TAB PO SCH ×2 (09:01→18:23)
[2020-07-06] MEDS: Tamsulosin HCl 0.4 MG CAP PO SCH (09:01)
[2020-07-06] MEDS: Gabapentin 300 MG CAP PO SCH ×2 (09:01→19:51)
[2020-07-06] MEDS: Saccharomyces boulardii 250 MG CAP PO SCH (09:01)
[2020-07-06] MEDS: Ascorbic Acid 500 mg Chewable Tablet PO SCH ×4 (09:01→23:52)
[2020-07-07] MEDS: Acetaminophen 500 MG TAB PO SCH ×4 (00:31→17:37)
--- NOTE | 2020-07-07 01:16 | PRG ---
DATE OF SERVICE: 07/07/2020 The patient is status post slip and fall, left femur fracture repair. The patient is resting comfortably in bed during evening rounds. Patient is medically stable, ready for discharge. Patient is sent to the [facility]. Job ID: [id number] MTDD
[2020-07-07] MEDS: Ciprofloxacin 500 MG TAB PO SCH (06:33)
[2020-07-07] MEDS: Furosemide 40 MG TAB PO SCH (06:33)
[2020-07-07] MEDS: Ascorbic Acid 500 mg Chewable Tablet PO SCH ×2 (09:33→09:37)
[2020-07-07] MEDS: Senokot S 8.6-50 MG TAB PO SCH (09:34)
[2020-07-07] MEDS: Tamsulosin HCl 0.4 MG CAP PO SCH (09:36)
[2020-07-07] MEDS: Famotidine 20 MG TAB PO SCH (09:36)
[2020-07-07] MEDS: Saccharomyces boulardii 250 MG CAP PO SCH (09:36)
[2020-07-07] MEDS: Apixaban 2.5 MG TAB PO SCH (09:37)
[2020-07-07] MEDS: Polyethylene Glycol 3350 17 GM Packet PO SCH (09:37)
[2020-07-07] MEDS: Gabapentin 300 MG CAP PO SCH (09:37)
[2020-07-07] MEDS: Ferrous Sulfate 325 MG TAB PO SCH ×2 (09:37→16:50)
[2020-07-07] MEDS: Amlodipine 5 MG TAB PO SCH (09:38)
--- NOTE | 2020-07-07 14:58 | PRG ---
DATE OF SERVICE: 07/07/2020 SUBJECTIVE: The patient is currently on the surgical floor. He is status post a ground level fall, in which he sustained a left distal femur fracture. He has undergone operative repair of that and he is currently awaiting placement to [facility] in [place]. He is tolerating a diet. His pain is controlled. He is working with physical and occupational therapy. PHYSICAL EXAMINATION: VITAL SIGNS: Temperature is 98.7, heart rate 64, blood pressure 142/58, respirations 16, and oxygen saturation is 96% on room air. GENERAL: The patient is resting comfortably. He appears in no distress. LUNGS: His respirations are nonlabored. EXTREMITIES: His dressings are clean, dry, and intact. LABORATORY DATA: There are no labs or radiographs to review this morning. ASSESSMENT: 1. Status post ground level fall, on Eliquis and Plavix. 2. Status post open reduction and internal fixation of left distal femur fracture. 3. Acute on chronic renal failure, improved. 4. Urinary tract infection, Proteus and Pseudomonas, completed Rocephin and still on Cipro. 5. History of hypertension, coronary artery disease, coronary artery bypass grafting, cerebrovascular accident, peripheral vascular disease, bilateral lower extremity ulcers, congestive heart failure, and atrial fibrillation. PLAN: Plan will be to continue his antibiotics as previously discussed. Wound care, pain management, physical therapy, and await final placement decision. The patient was discussed with Dr. James during rounds this morning. Job ID: [id number]
[2020-07-07 16:01] VITALS: BP 153/67; TEMP 98.2
[2020-07-07] MEDS: traMADol HCl 50 MG TAB PO PRN (16:50)
--- NOTE | 2020-07-08 17:30 | EKG ---
Test Reason : FALL Blood Pressure : / mmHG Vent. Rate : 067 BPM Atrial Rate : 066 BPM P-R Int : 000 ms QRS Dur : 170 ms QT Int : 486 ms P-R-T Axes : 038 010 066 degrees QTc Int : 513 ms Ventricular-paced rhythm Abnormal ECG Confirmed by LOYD TOMPKINS, TALYA ([id number]), pictures editor KIMBERLY MONTOYA ([id number]) on 07/08/2020 5:30:36 PM Referred By: LOYD Confirmed By:TALYA HARP MD
== END 2020-07-07 18:08 | DRG 481 ==
LOC: ERS 21:06 → SURG B 22:27
PROVIDERS: ADMIT Specialist; ATTEND Specialist
PROC: 30233N1 Transfusion of Nonautologous Red Blood Cells into Peripheral Vein, Percutaneous Approach (ICD-10-PCS; 2020-06-28)
PROC: 0QSC04Z Reposition Left Lower Femur with Internal Fixation Device, Open Approach (ICD-10-PCS; principal; 2020-06-29)
PROC: 0QBM0ZZ Excision of Left Tarsal, Open Approach (ICD-10-PCS; 2020-06-29)
DX: S72.402A Unspecified fracture of lower end of left femur, initial encounter for closed fracture (principal); E87.1 Hypo-osmolality and hyponatremia; N18.4 Chronic kidney disease, stage 4 (severe); N39.0 Urinary tract infection, site not specified; I13.0 Hypertensive heart and chronic kidney disease with heart failure and stage 1 through stage 4 chronic kidney disease, or unspecified chronic kidney disease; M97.02XA Periprosthetic fracture around internal prosthetic left hip joint, initial encounter; I96 Gangrene, not elsewhere classified; N17.9 Acute kidney failure, unspecified; L97.429 Non-pressure chronic ulcer of left heel and midfoot with unspecified severity; L97.419 Non-pressure chronic ulcer of right heel and midfoot with unspecified severity; M87.874 Other osteonecrosis, right foot; W06.XXXA Fall from bed, initial encounter; I25.10 Atherosclerotic heart disease of native coronary artery without angina pectoris; K21.9 Gastro-esophageal reflux disease without esophagitis; I50.9 Heart failure, unspecified; D64.9 Anemia, unspecified; G62.9 Polyneuropathy, unspecified; N40.0 Benign prostatic hyperplasia without lower urinary tract symptoms; Z96.653 Presence of artificial knee joint, bilateral; Z20.822 Contact with and (suspected) exposure to COVID-19; Z79.01 Long term (current) use of anticoagulants; Z86.73 Personal history of transient ischemic attack (TIA), and cerebral infarction without residual deficits; Z95.2 Presence of prosthetic heart valve; Z95.1 Presence of aortocoronary bypass graft; Z87.891 Personal history of nicotine dependence; Z79.02 Long term (current) use of antithrombotics/antiplatelets
CPT/HCPCS: 36415; 36416; 36430; 51701; 71045; 72170; 76000; 80048; 80053; 80307; 81003; 81015; 83735; 83880; 84100; 85025; 85610; 85730; 86850; 86900; 86901; 87077; 87086; 87186; 87635; 93005; 93306; 96374; 96375; C1713; G0390; J0690; J0696; J1100; J1630; J2270; J2405; J2704; J3010; J3490; J7050; P9016; S0028; U0003; U0005